=== PATIENT | female | born 1970 | race African-American/Black ===

== ENCOUNTER 2021-05-03 10:24 | Emergency (ER) | payer OTHER, SELFPAY ==
--- OUTSIDE RECORDS SUMMARY | 2021-05-03 10:29 | XMS REPORT | Continuity of Care Document ---
:1970 Author Organization [facility] t Address [address] [place] [address] Care Team Providers Name Role Phone Gonzalo ELLIS, Erik Primary Care Physician Sandro PASCAL Attending Clinician Unavailable SIOMARA Attending Clinician Unavailable SUBHA Attending Clinician Unavailable Jarocho iNchole DO Attending Clinician Erik ESTRELLA Attending Clinician Unavailable LOVELACE Attending Clinician Unavailable Sandro Pascal MD Attending Clinician 2, Lab Attending Clinician Unavailable Brock ELLIS Attending Clinician BROCK Attending Clinician Unavailable Doctor Unassigned, Name Attending Clinician Unavailable Lab, Fam Pob I Attending Clinician Unavailable Anene DIRECTOR COMPLIANCE Attending Clinician ANENE Attending Clinician Unavailable Payers Payer Name Policy Type Policy Number Effective Date Expiration Date [employer]ard 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 00:00: [place] with with Medical neuropathy neuropathy Br anch Type 2 Type 2 Disease Active Univers diabetes diabetes 3-20 ity of mellitus mellitus 00:00: [place] with with 00 Medical diabetic diabetic Branch polyneurop polyneurop athy athy Abscess of Abscess of Disease Active U nivers thumb, thumb, 3-20 ity of right right 00:00: [place] [facility] Thumb Thumb Disease Active Univers pain, pain, 3-20 ity of right right 00:00: [place] [facility] Candidiasi Candidiasi Disease Active U nivers s of vulva s of vulva 3-20 it y of and vagina and vagina 00:00: [place] [facility] Candidiasi Candidiasi Disease Active U nivers s s 3-20 ity of 00:00: [place] [facility] Yeast Yeast Disease Active Univers vaginitis vaginitis 3-20 ity of 00:00: [place] [facility] Esophageal Esophageal Disease Active U nivers reflux reflux 6-18 ity of 00:00: [place] [facility] Benign Benign Disease Active Univers hypertensi hypertensi 6-18 it y of ve heart ve heart 00:00: [place] disease disease 00 Medical without without Branch heart heart failure failure HLD HLD Disease Active Univers (hyperlipi (hyperlipi 6-18 it y of demia) demia) 00:00: [place] [facility] DM type 2 DM type 2 Disease Active Uni vers (diabetes (diabetes 6-18 ity of mellitus, mellitus, 00[place] type 2) type 2) 00 [facility] Peripheral Peripheral Disease Active U nivers neuropathy neuropathy 6-18 it y of 00:00: [place] 00 [facility] Branch Allergies, Adverse Reactions, Alerts Allergy Allergy Status Severity Reaction(s) Onset Inactive Treating Comm ents Source Name Type Date Date Clinician CODEINE DRUG Active Unknown-Cmnt Uni vers INGREDI 07-09 ity of 00:00: [place] 00 Medical Branch Codeine Propensi Active Unknown - dizziness U nivers ty to See comments 07-09 , pt IS ity of adverse 00:00: NOT [place] reaction 00 ALLERGIC Medica l s TO Branch TRAMADOL Social History Social Habit Start Date Stop Date Quantity Comments Source Exposure to Not sure [facility] SARS-CoV-2 [place] [facility] (event) Branch Tobacco use and 2017-01-12 2017-01-12 Never used Universit y of exposure 00:00:00 00:00:[address] [facility] Alcohol intake 2017-01-12 2017-01-12 Current University of 00:00:00 00:00:00 non-drinker of [facility] alcohol Branch (finding) Sex Ass[birth year] At [birth year] Universit y of 00:00:00 00:00:[address] [facility] Smoking Status Start Date Stop Date Source Never smoker [facility] Branch Medications Ordered Filled Start Stop Current Ordering Indication Dosage Frequency Signature Comments Components Source Medication Medication Date Date Medication? Clinician (SIG) Name Name fluconazole Yes Take one Un pricila 150 mg 1-14 tablet by ity of tablet 00:00: mouth 72 [place] 00 hours Medical after Branch first dose as instructed by provider fluconazole Yes Take one Un pricila 150 mg 1-14 tablet by ity of tablet 00:00: mouth 72 [place] 00 hours Medical after Branch first dose as instructed by provider metroNIDAZO Yes [id number] 500mg Take 1 Univers LE 500 mg 1-14 tablet by ity o f tablet 00:00: mouth [place] 00 every 12 Medical (twelve) Branch hours. fluconazole Yes Take one Un pricila 150 mg 1-14 tablet by ity of tablet 00:00: mouth 72 [place] 00 hours Medical after Branch first dose as instructed by provider metroNIDAZO Yes [id number] 500mg Take 1 Univers LE 500 mg 1-14 tablet by ity o f tablet 00:00: mouth [place] 00 every 12 Medical (twelve) Branch hours. fluconazole Yes Take one Un pricila 150 mg 1-14 tablet by ity of tablet 00:00: mouth 72 [place] 00 hours Medical after Branch first dose as instructed by provider metroNIDAZO Yes [id number] 500mg Take 1 Univers LE 500 mg 1-14 tablet by ity o f tablet 00:00: mouth [place] 00 every 12 Medical (twelve) Branch hours. nystatin-tr 202- No [id number] Apply to [facility] 03-17 area(s) 2 it y of cream 00:00: 05:59 (two) [place] 00 :00 times Medical daily for Branch 14 days. nystatin-tr 2020- No [id number] Apply to [facility] 03-17 area(s) 2 it y of cream 00:00: 05:59 (two) [place] 00 :00 times Medical daily for Branch 14 days. nystatin-tr 2020- No [id number] Apply to [facility] 03-17 area(s) 2 it y of cream 00:00: 05:59 (two) [place] 00 :00 times Medical daily for Branch 14 days. nystatin-tr 2020- No [id number] Apply to [facility] 03-17 area(s) 2 it y of cream 00:00: 05:59 (two) [place] 00 :00 times Medical daily for Branch 14 days. nystatin-tr 2020- No [id number] Apply to [facility] 03-17 area(s) 2 it y of cream 00:00: 05:59 (two) [place] 00 :00 times Medical daily for Branch 14 days. nystatin-tr 2020- No [id number] Apply to [facility] 03-17 area(s) 2 it y of cream 00:00: 05:59 (two) [place] 00 :00 times Medical daily for Branch 14 days. nystatin-tr 2020- No [id number] Apply to [facility] 03-17 area(s) 2 it y of cream 00:00: 05:59 (two) [place] 00 :00 times Medical daily for Branch 14 days. nystatin-tr 2020- No [id number] Apply to [facility] 03-17 area(s) 2 it y of cream 00:00: 05:59 (two) [place] 00 :00 times Medical daily for Branch 14 days. fluconazole 2020-2020- No [id number] 150mg Take 1 Univers 150 mg 03-17 tablet by ity of tablet 00:00: 05:59 mouth [place] 00 :[place] now for 1 Medical dose. Take Branch one tablet now and the second tablet in 72 hours fluconazole 2020- No [id number] 150mg Take 1 Univers 150 mg 03-17 tablet by ity of tablet 00:00: 05:59 mouth [place] 00 :[place] now for 1 Medical dose. Take Branch one tablet now and the second tablet in 72 hours fluconazole 2020- No [id number] 150mg Take 1 [facility] 150 mg 03-17 tablet by ity of tablet 00:00: 05:59 mouth [place] 00 :[place] now for 1 Medical dose. Take Branch one tablet now and the second tablet in 72 hours fluconazole 2020- No [id number] 150mg Take 1 [facility] 150 mg 03-17 tablet by ity of tablet 00:00: 05:59 mouth [place] 00 :[place] now for 1 Medical dose. Take Branch one tablet now and the second tablet in 72 hours sitaGLIPtin 2016-03 Yes [id number] 100mg Take 1 Univers (JANUVIA) 0-23 tablet by ity o f 100 mg 00:00: mouth [place] tablet 00 daily. Medical Branch metformin 2016-03 Yes [id number] 750mg Take 1 Univers ER 750 mg 0-23 tablet by ity o f 24 hr 00:00: mouth 2 [place] tablet 00 (two) Medical times Branch daily with meals. insulin 2016-03 Yes [id number] 35U inject Uni vers glargine 0-23 35-45 ity of (TOUJEO 00:00: Units [place] SOLOSTAR) 00 under the Medic al 300 unit/mL skin every Br anch (1.5 mL) morning. InPn sitaGLIPtin 2016-03 Yes [id number] 100mg Take 1 Univers (JANUVIA) 0-23 tablet by ity o f 100 mg 00:00: mouth [place] tablet 00 daily. Medical Branch metformin 2016-03 Yes [id number] 750mg Take 1 Univers ER 750 mg 0-23 tablet by ity o f 24 hr 00:00: mouth 2 [place] tablet 00 (two) Medical times Branch daily with meals. insulin 2016-03 Yes [id number] 35U inject Uni vers glargine 0-23 35-45 ity of (TOUJEO 00:00: Units [place] SOLOSTAR) 00 under the Medic al 300 unit/mL skin every Br anch (1.5 mL) morning. InPn sitaGLIPtin 2016-03 Yes [id number] 100mg Take 1 Univers (JANUVIA) 0-23 tablet by ity o f 100 mg 00:00: mouth [place] tablet 00 daily. Medical Branch metformin 2016-03 Yes [id number] 750mg Take 1 Univers ER 750 mg 0-23 tablet by ity o f 24 hr 00:00: mouth 2 [place] tablet 00 (two) Medical times Branch daily with meals. insulin 2016-03 Yes [id number] 35U inject Uni vers glargine 0-23 35-45 ity of (TOUJEO 00:00: Units [place] SOLOSTAR) 00 under the Medic al 300 unit/mL skin every Br anch (1.5 mL) morning. InPn sitaGLIPtin 2016-03 Yes [id number] 100mg Take 1 Univers (JANUVIA) 0-23 tablet by ity o f 100 mg 00:00: mouth [place] tablet 00 daily. Medical Branch metformin 2016-03 Yes [id number] 750mg Take 1 Univers ER 750 mg 0-23 tablet by ity o f 24 hr 00:00: mouth 2 [place] tablet 00 (two) Medical times Branch daily with meals. insulin 2016-03 Yes [id number] 35U inject Uni vers glargine 0-23 35-45 ity of (TOUJEO 00:00: Units [place] SOLOSTAR) 00 under the Medic al 300 unit/mL skin every Br anch (1.5 mL) morning. InPn sitaGLIPtin 2016-03 Yes [id number] 100mg Take 1 Univers (JANUVIA) 0-23 tablet by ity o f 100 mg 00:00: mouth [place] tablet 00 daily. Medical Branch metformin 2016-03 Yes [id number] 750mg Take 1 Univers ER 750 mg 0-23 tablet by ity o f 24 hr 00:00: mouth 2 [place] tablet 00 (two) Medical times Branch daily with meals. insulin 2016-03 Yes [id number] 35U inject Uni vers glargine 0-23 35-45 ity of (TOUJEO 00:00: Units [place] SOLOSTAR) 00 under the Medic al 300 unit/mL skin every Br anch (1.5 mL) morning. InPn sitaGLIPtin 2016-03 Yes [id number] 100mg Take 1 Univers (JANUVIA) 0-23 tablet by ity o f 100 mg 00:00: mouth [place] tablet 00 daily. Medical Branch metformin 2016-03 Yes [id number] 750mg Take 1 Univers ER 750 mg 0-23 tablet by ity o f 24 hr 00:00: mouth 2 [place] tablet 00 (two) Medical times Branch daily with meals. insulin 2016-03 Yes [id number] 35U inject Uni vers glargine 0-23 35-45 ity of (TOUJEO 00:00: Units [place] SOLOSTAR) 00 under the Medic al 300 unit/mL skin every Br anch (1.5 mL) morning. InPn sitaGLIPtin 2016-03 Yes [id number] 100mg Take 1 Univers (JANUVIA) 0-23 tablet by ity o f 100 mg 00:00: mouth [place] tablet 00 daily. Medical Branch metformin 2016-03 Yes [id number] 750mg Take 1 Univers ER 750 mg 0-23 tablet by ity o f 24 hr 00:00: mouth 2 [place] tablet 00 (two) Medical times Branch daily with meals. insulin 2016-03 Yes [id number] 35U inject Uni vers glargine 0-23 35-45 ity of (TOUJEO 00:00: Units [place] SOLOSTAR) 00 under the Medic al 300 unit/mL skin every Br anch (1.5 mL) morning. InPn sitaGLIPtin 2016-03 Yes [id number] 100mg Take 1 Univers (JANUVIA) 0-23 tablet by ity o f 100 mg 00:00: mouth [place] tablet 00 daily. Medical Branch metformin 2016-03 Yes [id number] 750mg Take 1 Univers ER 750 mg 0-23 tablet by ity o f 24 hr 00:00: mouth 2 [place] tablet 00 (two) Medical times Branch daily with meals. insulin 2016- Yes [id number] 35U inject Uni vers glargine 0-23 35-45 ity of (TOUJEO 00:00: Units [place] SOLOSTAR) 00 under the Medic al 300 unit/mL skin every Br anch (1.5 mL) morning. InPn sitaGLIPtin 2016-03 Yes [id number] 100mg Take 1 Univers (JANUVIA) 0-23 tablet by ity o f 100 mg 00:00: mouth [place] tablet 00 daily. Medical Branch metformin 2016-03 Yes [id number] 750mg Take 1 Univers ER 750 mg 0-23 tablet by ity o f 24 hr 00:00: mouth 2 [place] tablet 00 (two) Medical times Branch daily with meals. insulin 2016-03 Yes [id number] 35U inject Uni vers glargine 0-23 35-45 ity of (TOUJEO 00:00: Units [place] SOLOSTAR) 00 under the Medic al 300 unit/mL skin every Br anch (1.5 mL) morning. InPn sitaGLIPtin 2016-03 Yes [id number] 100mg Take 1 Univers (JANUVIA) 0-23 tablet by ity o f 100 mg 00:00: mouth [place] tablet 00 daily. Medical Branch metformin 2016-03 Yes [id number] 750mg Take 1 Univers ER 750 mg 0-23 tablet by ity o f 24 hr 00:00: mouth 2 [place] tablet 00 (two) Medical times Branch daily with meals. insulin 2016-03 Yes [id number] 35U inject Uni vers glargine 0-23 35-45 ity of (TOUJEO 00:00: Units [place] SOLOSTAR) 00 under the Medic al 300 unit/mL skin every Br anch (1.5 mL) morning. InPn sitaGLIPtin 2016-03 Yes [id number] 100mg Take 1 Univers (JANUVIA) 0-23 tablet by ity o f 100 mg 00:00: mouth [place] tablet 00 daily. Medical Branch metformin 2016-03 Yes [id number] 750mg Take 1 Univers ER 750 mg 0-23 tablet by ity o f 24 hr 00:00: mouth 2 [place] tablet 00 (two) Medical times Branch daily with meals. insulin 2016-03 Yes [id number] 35U inject Uni vers glargine 0-23 35-45 ity of (TOUJEO 00:00: Units [place] SOLOSTAR) 00 under the Medic al 300 unit/mL skin every Br anch (1.5 mL) morning. InPn sitaGLIPtin 2016-03 Yes [id number] 100mg Take 1 Univers (JANUVIA) 0-23 tablet by ity o f 100 mg 00:00: mouth [place] tablet 00 daily. Medical Branch metformin 2016-03 Yes [id number] 750mg Take 1 Univers ER 750 mg 0-23 tablet by ity o f 24 hr 00:00: mouth 2 [place] tablet 00 (two) Medical times Branch daily with meals. insulin 2016-03 Yes [id number] 35U inject Uni vers glargine 0-23 35-45 ity of (TOUJEO 00:00: Units [place] SOLOSTAR) 00 under the Medic al 300 unit/mL skin every Br anch (1.5 mL) morning. InPn sitaGLIPtin 2016-03 Yes [id number] 100mg Take 1 Univers (JANUVIA) 0-23 tablet by ity o f 100 mg 00:00: mouth [place] tablet 00 daily. Medical Branch metformin 2016-03 Yes [id number] 750mg Take 1 Univers ER 750 mg 0-23 tablet by ity o f 24 hr 00:00: mouth 2 [place] tablet 00 (two) Medical times Branch daily with meals. insulin 2016-03 Yes [id number] 35U inject Uni vers glargine 0-23 35-45 ity of (TOUJEO 00:00: Units [place] SOLOSTAR) 00 under the Medic al 300 unit/mL skin every Br anch (1.5 mL) morning. InPn atorvastati 2016-03 Yes [id number] 40mg Take 1 Univers n 40 mg 0-11 tablet by ity of tablet 00:00: mouth at [place] 00 bedtime. Medical Branch blood sugar 2016-03 Yes [id number] Use TID, Univers diagnostic 0-11 DX E11.9 ity o f strip 00:00: ([facility] upon [facility] Branch approval) requesting True Track Strips atorvastati 2016-03 Yes [id number] 40mg Take 1 Univers n 40 mg 0-11 tablet by ity of tablet 00:00: mouth at [place] 00 bedtime. Medical Branch blood sugar 2016-03 Yes [id number] Use TID, Univers diagnostic 0-11 DX E11.9 ity o f strip 00:00: ([facility] upon [facility] approval) requesting True Track Strips atorvastati 2016-03 Yes [id number] 40mg Take 1 Univers n 40 mg 0-11 tablet by ity of tablet 00:00: mouth at [place] 00 bedtime. [facility] blood sugar 2016-03 Yes [id number] Use TID, Univers diagnostic 0-11 DX E11.9 ity o f strip 00:00: ([facility] upon [facility] Branch approval) requesting True Track Strips atorvastati 2016-03 Yes [id number] 40mg Take 1 Univers n 40 mg 0-11 tablet by ity of tablet 00:00: mouth at [place] 00 bedtime. [facility] blood sugar 2016-03 Yes [id number] Use TID, Univers diagnostic 0-11 DX E11.9 ity o f strip 00:00: ([facility] approval) requesting True Track Strips atorvastati 2016-03 Yes [id number] 40mg Take 1 Univers n 40 mg 0-11 tablet by ity of tablet 00:00: mouth at [place] 00 bedtime. [facility] blood sugar 2016-03 Yes [id number] Use TID, Univers diagnostic 0-11 DX E11.9 ity o f strip 00:00: ([facility] approval) requesting True Track Strips atorvastati 2016-03 Yes [id number] 40mg Take 1 Univers n 40 mg 0-11 tablet by ity of tablet 00:00: mouth at [place] 00 bedtime. [facility] blood sugar 2016-03 Yes [id number] Use TID, Univers diagnostic 0-11 DX E11.9 ity o f strip 00:00: ([facility] approval) requesting True Track Strips atorvastati 2016-03 Yes [id number] 40mg Take 1 Univers n 40 mg 0-11 tablet by ity of tablet 00:00: mouth at [place] 00 bedtime. [facility] blood sugar 2016-03 Yes [id number] Use TID, Univers diagnostic 0-11 DX E11.9 ity o f strip 00:00: ([facility] approval) requesting True Track Strips atorvastati 2016-03 Yes [id number] 40mg Take 1 Univers n 40 mg 0-11 tablet by ity of tablet 00:00: mouth at [place] 00 bedtime. [facility] blood sugar 2016-03 Yes [id number] Use TID, Univers diagnostic 0-11 DX E11.9 ity o f strip 00:00: ([facility] approval) requesting True Track Strips atorvastati 2016-03 Yes [id number] 40mg Take 1 Univers n 40 mg 0-11 tablet by ity of tablet 00:00: mouth at [place] 00 bedtime. [facility] blood sugar 2016-03 Yes [id number] Use TID, Univers diagnostic 0-11 DX E11.9 ity o f strip 00:00: ([facility] approval) requesting True Track Strips atorvastati 2016- Yes [id number] 40mg Take 1 Univers n 40 mg 0-11 tablet by ity of tablet 00:00: mouth at [place] 00 bedtime. [facility] blood sugar 2016-03 Yes [id number] Use TID, Univers diagnostic 0-11 DX E11.9 ity o f strip 00:00: ([facility] approval) requesting True Track Strips atorvastati 2016-03 Yes [id number] 40mg Take 1 Univers n 40 mg 0-11 tablet by ity of tablet 00:00: mouth at [place] 00 bedtime. [facility] blood sugar 2016-03 Yes [id number] Use TID, Univers diagnostic 0-11 DX E11.9 ity o f strip 00:00: ([facility] approval) requesting True Track Strips atorvastati 2016-03 Yes [id number] 40mg Take 1 Univers n 40 mg 0-11 tablet by ity of tablet 00:00: mouth at [place] 00 bedtime. [facility] blood sugar 2016-03 Yes [id number] Use TID, Univers diagnostic 0-11 DX E11.9 ity o f strip 00:00: ([facility] approval) requesting True Track Strips atorvastati 2016-03 Yes [id number] 40mg Take 1 Univers n 40 mg 0-11 tablet by ity of tablet 00:00: mouth at [place] 00 bedtime. [facility] blood sugar 2016-03 Yes [id number] Use TID, Univers diagnostic 0-11 DX E11.9 ity o f strip 00:00: ([facility] approval) requesting True Track Strips insulin Yes [id number] Use with Un pricila syringe-nee 5-04 insulin 3 ity of dle U-100 1 00:00: times [place] ml (INSULIN 00 daily Medical SYRINGE) 1 Branch mL 29 x 1/2" Syrg insulin Yes [id number] Use with Un pricila syringe-nee 5-04 insulin 3 ity of dle U-100 1 00:00: times [place] ml (INSULIN 00 daily Medical SYRINGE) 1 Branch mL 29 x 1/2" Syrg insulin Yes [id number] Use with Un pricila syringe-nee 5-04 insulin 3 ity of dle U-100 1 00:00: times [place] ml (INSULIN 00 daily Medical SYRINGE) 1 Branch mL 29 x 1/2" Syrg insulin 2015- Yes [id number] Use with Un pricila syringe-nee 5-04 insulin 3 ity of dle U-100 1 00:00: times [place] ml (INSULIN 00 daily Medical SYRINGE) 1 Branch mL 29 x 1/2" Syrg insulin Yes [id number] Use with Un pricila syringe-nee 5-04 insulin 3 ity of dle U-100 1 00:00: times [place] ml (INSULIN 00 daily Medical SYRINGE) 1 Branch mL 29 x 1/2" Syrg insulin Yes [id number] Use with Un pricila syringe-nee 5-04 insulin 3 ity of dle U-100 1 00:00: times [place] ml (INSULIN 00 daily Medical SYRINGE) 1 Branch mL 29 x 1/2" Syrg insulin Yes [id number] Use with Un pricila syringe-nee 5-04 insulin 3 ity of dle U-100 1 00:00: times [place] ml (INSULIN 00 daily Medical SYRINGE) 1 Branch mL 29 x 1/2" Syrg insulin Yes [id number] Use with Un pricila syringe-nee 5-04 insulin 3 ity of dle U-100 1 00:00: times [place] ml (INSULIN 00 daily Medical SYRINGE) 1 Branch mL 29 x 1/2" Syrg insulin Yes [id number] Use with Un pricila syringe-nee 5-04 insulin 3 ity of dle U-100 1 00:00: times [place] ml (INSULIN 00 daily Medical SYRINGE) 1 Branch mL 29 x 1/2" Syrg insulin Yes [id number] Use with Un pricila syringe-nee 5-04 insulin 3 ity of dle U-100 1 00:00: times [place] ml (INSULIN 00 daily Medical SYRINGE) 1 Branch mL 29 x 1/2" Syrg insulin Yes [id number] Use with Un pricila syringe-nee 5-04 insulin 3 ity of dle U-100 1 00:00: times [place] ml (INSULIN 00 daily Medical SYRINGE) 1 Branch mL 29 x 1/2" Syrg insulin Yes [id number] Use with Un pricila syringe-nee 5-04 insulin 3 ity of dle U-100 1 00:00: times [place] ml (INSULIN 00 daily Medical SYRINGE) 1 Branch mL 29 x 1/2" Syrg insulin 2016-0 Yes [id number] Use with Un pricila syringe-nee 5-04 insulin 3 ity of dle U-100 1 00:00: times [place] ml (INSULIN 00 daily Medical SYRINGE) 1 Branch mL 29 x 1/2" Syrg Insulin 2016-0 Yes Use as [facility] [place], 3-25 directed ity of Disposable, 00:00: [place] (SURE-FINE 00 Medical PEN Branch NEEDLES) 31 gauge x 3/16" Ndle Insulin 2016-0 Yes Use as Univers [place], 3-25 directed ity of Disposable, 00:00: [place] (SURE-FINE 00 Medical PEN Branch NEEDLES) 31 gauge x 3/16" Ndle Insulin 2016-0 Yes Use as Univers [place], 3-25 directed ity of Disposable, 00:00: [place] (SURE-FINE 00 Medical PEN Branch NEEDLES) 31 gauge x 3/16" Ndle Insulin 2016-0 Yes Use as Univers [place], 3-25 directed ity of Disposable, 00:00: [place] (SURE-FINE 00 Medical PEN Branch NEEDLES) 31 gauge x 3/16" Ndle Insulin 2016-0 Yes Use as Univers [place], 3-25 directed ity of Disposable, 00:00: [place] (SURE-FINE 00 Medical PEN Branch NEEDLES) 31 gauge x 3/16" Ndle Insulin 2016-0 Yes Use as Univers [place], 3-25 directed ity of Disposable, 00:00: [place] (SURE-FINE 00 Medical PEN Branch NEEDLES) 31 gauge x 3/16" Ndle Insulin 2016-0 Yes Use as Univers [place], 3-25 directed ity of Disposable, 00:00: [place] (SURE-FINE 00 Medical PEN Branch NEEDLES) 31 gauge x 3/16" Ndle Insulin 2016-0 Yes Use as Univers [place], 3-25 directed ity of Disposable, 00:00: [place] (SURE-FINE 00 Medical PEN Branch NEEDLES) 31 gauge x 3/16" Ndle Insulin 2016-0 Yes Use as [facility] [place], 3-25 directed ity of Disposable, 00:00: [place] (SURE-FINE 00 Medical PEN Branch NEEDLES) 31 gauge x 3/16" Ndle Insulin 2016-0 Yes Use as [facility] [place], 3-25 directed ity of Disposable, 00:00: [place] (SURE-FINE 00 Medical PEN Branch NEEDLES) 31 gauge x 3/16" Ndle Insulin 2016-0 Yes Use as [facility] [place], 3-25 directed ity of Disposable, 00:00: [place] (SURE-FINE 00 Medical PEN Branch NEEDLES) 31 gauge x 3/16" Ndle Insulin 2016-0 Yes Use as [facility] [place], 3-25 directed ity of Disposable, 00:00: [place] (SURE-FINE 00 Medical PEN Branch NEEDLES) 31 gauge x 3/16" Ndle Insulin 2016-0 Yes Use as [facility] [place], 3-25 directed ity of Disposable, 00:00: [place] (SURE-FINE 00 Medical PEN Branch NEEDLES) 31 gauge x 3/16" Ndle Vital Signs Vital Name Observation Time Observation Value Comments Source Systolic blood 2020-03-17 21:27:00 137 mm[facility]Hg[facility] Diastolic blood 2020-03-17 21:27:00 94 mm[facility]Hg[facility] 2020-03-17 21:27:00 105 /min [facility] acute hospital Body temperature 2020-03-17 21:04:00 36.83 [facility] Respiratory rate 2020-03-17 21:04:00 16 /min [facility] Body height 2020-03-17 21:04:00 160 cm [facility] acute hospital Body weight 2020-03-17 21:04:00 65.772 kg [facility] acute hospital BMI 2020-03-17 21:04:00 25.69 kg/m2 [facility] acute hospital Procedures Procedure Date / Time Performing Clinician Source Performed GC & CHLAMYDIA AMPLIFIED 2020-03-17 21:16:00 AdumMarlena [facility] RISK HPV-THIN PREP 2020-03-17 21:16:00 [facility] TRICHOMONAS AMPLIFIED 2020-03-17 21:16:00 [facility] PAP SMEAR-LIQUID BASED-CP 2020-03-17 21:16:00 [facility] 2020-03-17 20:11:55 Doctor Unassigned, [facility] NO SHOW OR MISSED 2020-03-17 20:11:05 Doctor Unassigned, Crys [facility] APPOINTMENT POLICY [facility] ACKNOWLEDGEMENT Encounters Start End Encounter Admission Attending Care Care Encounter Source Date/Time Date/Time Type Type Clinicians Facility Department ID 2021-03-18 2021-03-18 Outpatient ADUM, [facility] [id number] [facility] 15:30:00 15:30:00 MARLENA [id number] [facility] 2020-08-13 2020-08-13 Outpatient SEPTIMUS, [facility] [id number] [place] 00:00:00 00:00:00 HENRI 025 Method i 2020-07-23 2020-07-23 Outpatient [facility] [id number] [place] 00:00:00 00:00:00 309 Method i 2020-07-23 2020-07-23 Outpatient SUBHA, [facility] [id number] [place] 00:00:00 00:00:00 JUDY 529 Method i 2020-07-23 2020-07-23 Outpatient SUBHA, [facility] [id number] [place] 00:00:00 00:00:00 JUDY 606 Method i 2020-07-23 2020-07-23 Outpatient SUBHA, [facility] [id number] [place] 00:00:00 00:00:00 JUDY 695 Method i 2020-07-23 2020-07-23 Outpatient SUBHA, [facility] [id number] [place] 00:00:00 00:00:00 JUDY 769 Method i 2020-07-23 2020-07-23 Outpatient SUBHA, [facility] [id number] [place] 00:00:00 00:00:00 JUDY 841 Method i 2020-07-23 2020-07-23 Outpatient SUBHA, [facility] [id number] [place] 00:00:00 00:00:00 JUDY 914 Method i 2020-05-21 2020-05-21 [facility] [id number] Univers 00:00:00 00:00:00 Outreach Maximo PRIMARY [id number] i ty of [facility] [id number] [phone] Wi dical [address] 2020-04-17 2020-04-17 Outpatient SAMEER, [facility] [id number] Univers 10:00:00 10:00:00 WONDIFUL [id number] ity o f [facility] 2020-04-15 2020-04-15 Outpatient R LOVELACE, [facility] [id number] Univers 10:30:00 10:30:00 WENTONG [id number] ity [facility] 2020-04-15 2020-04-15 Outpatient R LOVELACE, [facility] [id number] Univers 10:30:00 10:30:00 WENTONG ity [facility] 2020-04-03 2020-04-03 Outpatient ADUM, [facility] [id number] Univers 10:00:00 10:00:00 MARLENA [id number] ity [facility] 2020-04-03 2020-04-03 Outpatient R ADUM, [facility] [id number] Univers 10:00:00 10:00:00 MARLENA ity [facility] 2020-04-02 2020-04-02 Outpatient R ADUM, [facility] [id number] Univers 00:00:00 00:00:00 MARLENA [id number] ity [facility] 2020-04-02 2020-04-02 Outpatient R ADUM, [facility] [id number] Univers 00:00:00 00:00:00 MARLENA ity [facility] 2020-03-27 2020-03-27 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 [facility] [id number] Univers 10:17:57 10:32:57 Visit Michelle Santos [id number] [id number] [phone] Wi dical nal 353 [facility] 2020-03-18 2020-03-18 Outpatient [facility] [id number] Univers 10:00:00 10:00:00 [id number] [facility] 2020-03-18 2020-03-18 [facility] [id number] Univers 10:00:00 10:00:00 [facility] 2020-03-17 2020-03-17 Office Adum, [facility] [id number] Univers 14:10:59 16:09:53 Visit Marlena Holder [id number] [id number] [phone] Wi dical nal 134 [facility] 2020-03-17 2020-03-17 Outpatient R AD, [facility] [id number] Univers 14:30:00 14:30:00 MARLENA [id number] [facility] 2020-03-17 2020-03-17 Outpatient R ADUM, [facility] [id number] Univers 14:30:00 14:30:00 [facility] 2020-03-17 2020-03-17 Telephone Adum, [facility] [id number] Univers 00:00:00 00:00:00 Marlena Holder [id number] [id number] [phone] Wi dical nal 134 [facility] 2020-03-17 2020-03-17 Orders Doctor GUERRA [id number] Univers 00:00:00 00:00:00 Only Unassigned, SHARLA [id number] [facility] [id number] [place] as [phone] [address] 2020-01-17 2020-01-17 Outpatient R ADUM, [facility] [id number] Univers 14:00:00 14:00:00 MARLENA [id number] ity of [facility] 2020-01-17 2020-01-17 Outpatient R ADUM, [facility] [id number] Univers 14:00:00 14:00:00 MARLENA ity [facility] 2020-01-14 2020-01-14 Outpatient R ADUM, [facility] [id number] Univers 09:00:00 09:00:00 MARLENA ity of [facility] 2019-12-19 2019-12-19 Outpatient R ADUM, [facility] [id number] Univers 15:30:00 15:30:00 MARLENA [id number] ity [facility] 2019-12-19 2019-12-19 Outpatient R ADUM, [facility] [id number] Univers 15:30:00 15:30:00 MARLENA ity [facility] 2019-12-18 2019-12-18 Outpatient R ADUM, [facility] [id number] Univers 15:30:00 15:30:00 MARLENA [id number] ity [facility] 2019-12-18 2019-12-18 Outpatient R ADUM, [facility] [id number] Univers 15:30:00 15:30:00 MARLENA ity [facility] 2019-12-18 2019-12-18 Outpatient R ADUM, [facility] [id number] Univers 15:30:00 15:30:00 [facility] 2019-09-25 2019-09-25 Laboratory Lab, Adc Fam Pob I [facility] [id number] Univers 17:20:00 17:40:00 Only Anene, [facility] [id number] ity of [place] [id number] [place] Lamonte [phone] [address] Office [address] One 2019-09-25 2019-09-25 Outpatient R [facility] [id number] Univers 17:20:00 17:20:00 [id number] whitney [facility] 2019-09-25 2019-09-25 Outpatient R MARICRUZ, [facility] [id number] Univers 17:20:00 17:20:00 GRACIELA olson [facility] Results Test Description Test Time Test Comments Results Result Comments Source HIGH RISK HPV-THIN PREP 2020-03-19 04:39:00 Test Item Value Reference Range Interpretation Comme nts High Risk HPV (test code = Negative Negative 8902817971) ELI (test code = ELI) A positive result indicates the presence of viral messenger RNA (mRNA) from 14 high-risk types of human papillomavirus (HPV Genotype 16, 18, 31, 33, 35, 39, 45, 51, 52, 56, 58, 59, 66, 68). ?False-positive results may occur with this test when mRNA of low-risk HPV genotypes 26, 67, 70, and 82 is present. A negative result of this assay does not exclude the possibility of cytologic abnormalities or of future or underlying CIN2-3, or cancer. ?Sensitivity of this test may be affected by specimen collection methods, stage of infection, and the presence of interfering substances. ?Results should be interpreted in conjunction with other available laboratory and clinical data. Lab Interpretation (test code = Normal 68212-6) [facility] [id number] 04:39:00 Test Item Value Reference Range Interpretation Comments High Risk HPV (test Negative Negative code = 3982202812) ELI (test code = ELI) A positive result indicates the presence of viral messenger RNA (mRNA) from 14 high-risk types of human papillomavirus (HPV Genotype 16, 18, 31, 33, 35, 39, 45, 51, 52, 56, 58, 59, 66, 68). ?False-positive results may occur with this test when mRNA of low-risk HPV genotypes 26, 67, 70, and 82 is present. A negative result of this assay does not exclude the possibility of cytologic abnormalities or of future or underlying CIN2-3, or cancer. ?Sensitivity of this test may be affected by specimen collection methods, stage of infection, and the presence of interfering substances. ?Results should be interpreted in conjunction with other available laboratory and clinical data. Lab Interpretation Normal (test code = 77411-7) [facility] CHLAMYDIA AMPLIFIED [id number] 18:39:00 Test Item Value Reference Range Interpretation Comments C. trachomatis Nucleic Negative Negative Acid (test code = 68869-3) N. gonorrhoeae Nucleic Negative Negative Acid (test code = 35811-9) ELI (test code = ELI) Reliable results are dependent on adequate specimen collection. ? A positive result obtained from a patient after therapeutic treatment cannot be interpreted as indicating the presence of viable organisms. ?For patients on whom a false positive result may have adverse psychosocial impact, retesting is advised. Indeterminate: Unable to generate a valid test result on this specimen. ?Please submit a new specimen for repeat testing if clinically indicated. Chlamydia trachomatis/Neisseria gonorrhoeae nucleic acid amplification testing (NAAT) has not been validated for medico-legal specimens (sexual abuse in briana-pubertal and pre-pubertal children, sexual assault, and legal cases). ?Culture for Chlamydia trachomatis and/or Neisseria gonorrhoeae from clinically appropriate sites is the method of choice in these cases. ? Results from this testing should be interpreted in conjunction with other laboratory and clinical data available to the clinician. Lab Interpretation Normal (test code = 09910-5) [facility] CHLAMYDIA AMPLIFIED [id number] 18:39:00 Test Item Value Reference Range Interpretation Comments C. trachomatis Nucleic Negative Negative Acid (test code = 27877-5) N. gonorrhoeae Nucleic Negative Negative Acid (test code = 46404-0) ELI (test code = ELI) Reliable results are dependent on adequate specimen collection. ? A positive result obtained from a patient after therapeutic treatment cannot be interpreted as indicating the presence of viable organisms. ?For patients on whom a false positive result may have adverse psychosocial impact, retesting is advised. Indeterminate: Unable to generate a valid test result on this specimen. ?Please submit a new specimen for repeat testing if clinically indicated. Chlamydia trachomatis/Neisseria gonorrhoeae nucleic acid amplification testing (NAAT) has not been validated for medico-legal specimens (sexual abuse in briana-pubertal and pre-pubertal children, sexual assault, and legal cases). ?Culture for Chlamydia trachomatis and/or Neisseria gonorrhoeae from clinically appropriate sites is the method of choice in these cases. ? Results from this testing should be interpreted in conjunction with other laboratory and clinical data available to the clinician. Lab Interpretation Normal (test code = 59020-2) [facility] [id number] 18:29:00 Test Item Value Reference Range Interpretation Comments Trichomonas Nucleic Negative Negative Acid (test code = 77110-9) ELI (test code = ELI) Reliable results are dependent on adequate specimen collection. ? A positive result obtained from a patient after therapeutic treatment cannot be interpreted as indicating the presence of viable organisms. ?For patients on whom a false positive result may have adverse psychosocial impact, retesting is advised. Indeterminate: Unable to generate a valid test result on this specimen. ?Please submit a new specimen for repeat testing if clinically indicated. Trichomonas nucleic acid amplification testing (NAAT) has not been validated for medico-legal specimens (sexual abuse in [place]-pubertal and pre-pubertal children, sexual assault, and legal cases). ?Wet mount with microscopic observation and culture for Trichomonas vaginalis from clinically appropriate sites are the methods of choice in these cases. Results from this testing should be interpreted in conjunction with other laboratory and clinical data available to the clinician. Lab Interpretation Normal (test code = 79733-3) [facility] [id number] 18:29:00 Test Item Value Reference Range Interpretation Comments Trichomonas Nucleic Negative Negative Acid (test code = 93218-6) ELI (test code = ELI) Reliable results are dependent on adequate specimen collection. ? A positive result obtained from a patient after therapeutic treatment cannot be interpreted as indicating the presence of viable organisms. ?For patients on whom a false positive result may have adverse psychosocial impact, retesting is advised. Indeterminate: Unable to generate a valid test result on this specimen. ?Please submit a new specimen for repeat testing if clinically indicated. Trichomonas nucleic acid amplification testing (NAAT) has not been validated for medico-legal specimens (sexual abuse in [place]-pubertal and pre-pubertal children, sexual assault, and legal cases). ?Wet mount with microscopic observation and culture for Trichomonas vaginalis from clinically appropriate sites are the methods of choice in these cases. Results from this testing should be interpreted in conjunction with other laboratory and clinical data available to the clinician. Lab Interpretation Normal (test code = 06461-7) [facility]
[2021-05-03] MEDS ORDERED: TETRACAINE HCL 0.5% 4ML OPTH ONE (11:11)
[2021-05-03] MEDS ORDERED: FLUORESCEIN SODIUM 1 MG/WRAP ONE (11:12)
--- NOTE | 2021-05-03 12:30 | ER ---
Nurse's Notes [facility] Name: Starla Rojas Age: 50 yrs Sex: Female : 1970 Arrival Date: 05/03/2021 Time: 10:26 Bed 18 Private MD: Diagnosis: Unspecified acute conjunctivitis, right eye Presentation: 05/03 10:27 Chief complaint: Patient states: rt eye tenderness, with increased pain with light. Hx jh6 of HTN. Reports that she woke up with pain. clear drainage. Coronavirus screen: Vaccine status: Patient reports receiving the 2nd dose of the covid vaccine. Client denies travel out of the [place] in the last 14 days. Ebola Screen: Patient denies exposure to infectious person. Patient denies travel to an Ebola-affected area in the 21 days before illness onset. Initial Sepsis Screen: Does the patient meet any 2 criteria? No. Patient's initial sepsis screen is negative. Risk Assessment: Do you want to hurt yourself or someone else? Patient reports no desire to harm self or others. Onset of symptoms was May 01, 2021. 10:27 Method Of Arrival: Ambulatory [facility] 10:27 Acuity: BRUNO 3 jh6 11:39 Initial Sepsis Screen: Does the patient have a suspected source of infection? No. tw2 Patient's initial sepsis screen is negative. Triage Assessment: 10:34 General: Appears uncomfortable, Behavior is calm, cooperative. Pain: Complains of pain jh6 in right eye Pain currently is 8 out of 10 on a pain scale. Quality of pain is described as throbbing, Pain began 2-3 days ago. Is continuous, Aggravated by light. 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 - Social history:: Smoking status: Patient denies any tobacco usage or history of. Screenin:36 Abuse screen: Denies threats or abuse. Nutritional screening: No deficits noted. tw2 Tuberculosis screening: No symptoms or risk factors identified. Fall Risk None identified. Assessment: 11:35 Reassessment: provider at bedside at this time performing eye examination with Perez 2 Lamp. 12:37 Reassessment: Patient appears in no apparent distress at this time. No changes from tw2 previously documented assessment. Patient is alert, oriented x 3, equal unlabored respirations, skin warm/dry/pink. Vital Signs: 10:27 BP 151 / 97; Pulse 99; Resp 18; Temp 97.6; Pulse Ox 100% ; Weight 68.49 kg; Height 5 [facility] ft. 3 in. (160.02 cm); Pain 8/10; 10:27 Body Mass Index 26.75 (68.49 kg, 160.02 cm) [facility] ED Course: 10:26 Patient arrived in ED. am2 10:34 Triage completed. [facility] 10:35 Arm band placed on left wrist. [facility] 10:36 Bertha Jason, RN is Primary Nurse. tw2 10:36 Bed in low position. Call light in reach. Pulse ox on. NIBP on. 2 10:54 Jersey Toro PA is PHCP. [facility] 10:54 Domo Shepherd MD is Attending Physician. [facility] 12:30 Chidi Diaz MD is Referral Physician. [facility] 12:37 No provider procedures requiring assistance completed. Assist provider with eye exam of tw2 right eye. Patient did not have IV access during this emergency room visit. Administered Medications: 11:35 Drug: Tetracaine Drops 0.5 % 1 drops Route: Ophthalmic; Site: right eye; 2 Outcome: 12:30 Discharge ordered by MD. [facility] 12:37 Discharged to home ambulatory. tw2 12:37 Condition: stable 12:37 Discharge instructions given to patient, Instructed on discharge instructions, follow up and referral plans. medication usage, Demonstrated understanding of instructions, follow-up care, medications, Prescriptions given X 1. 12:38 Patient left the ED. 2 Signatures: Jersey Toro PA PA [facility] Bertha Jason RN RN 2 Betty Avilez 2 Patria Grullon RN RN [facility] Corrections: (The following items were deleted from the chart) 10:34 10:34 Allergies: No Known Allergies; [place] [id number]
--- NOTE | 2021-05-03 12:30 | EDPHYS ---
Physician Documentation [facility] Name: Starla Rojas Age: 50 yrs Sex: Female : 1970 Arrival Date: 05/03/2021 Time: 10:26 Bed 18 Private MD: AKILA Physician Domo Shepherd HPI: 05/03 10:59 This 50 yrs old Black Female presents to ER via Ambulatory with complaints of Eye jmm Problem - pressure/cant open right eye. 10:59 Onset: The symptoms/episode began/occurred gradually, 2 day(s) ago. Duration: the jmm symptoms are continuous. Aggravated by opening eye, Alleviated by. Associated signs and symptoms: Pertinent negatives:. Associated signs and symptoms: Pertinent negatives: fever. This is a 50-year-old female with complaints of right eye pain beginning 2 days ago. States having some mild drainage from the eye worsened by opening the eye. Denies fever, denies known injury to the eye.. 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 - Home Meds: 10:34 None [Active]; [facility] - PMHx: 10:34 Hypertensive disorder; Diabetes mellitus; [facility] - Immunization history:: Adult Immunizations up to date, Client reports receiving the 2nd dose of the Covid vaccine. - Social history:: Smoking status: Patient denies any tobacco usage or history of. ROS: 10:59 Constitutional: Negative for fever, chills, and weight loss. jmm 10:59 Eyes: Positive for pain. 10:59 All other systems are negative. Exam: 10:59 Constitutional: This is a well developed, well nourished patient who is awake, alert, jmm and in no acute distress. Head/Face: atraumatic. 10:59 ENT: Moist Mucus Membranes Neck: Trachea midline, Supple Chest/axilla: Normal chest wall appearance and motion. Cardiovascular: Regular rate and rhythm. No edema appreciated Respiratory: Normal respirations, no respiratory distress appreciated Abdomen/GI: Non distended, soft Back: Normal ROM Skin: General appearance color normal MS/ Extremity: Moves all extremities, no obvious deformities appreciated, no edema noted to the lower extremities Neuro: Awake and alert Psych: Behavior is normal, Mood is normal, Patient is cooperative and pleasant 10:59 Eyes: Extraocular movements: intact throughout, Conjunctiva: injected, in the right eye, Corneas: abrasion, is not appreciated, foreign body, is not appreciated, a fluorescein strip employed to appreciate the findings, Anterior chamber: normal, Intraocular pressure: right eye = 14mmHg. Vital Signs: 10:27 BP 151 / 97; Pulse 99; Resp 18; Temp 97.6; Pulse Ox 100% ; Weight 68.49 kg; Height 5 jh6 ft. 3 in. (160.02 cm); Pain 8/10; 10:27 Body Mass Index 26.75 (68.49 kg, 160.02 cm) jh6 MDM: 10:59 Patient medically screened. [facility] 12:28 Data reviewed: vital signs, nurses notes. Counseling: I had a detailed discussion with [facility] the patient and/or guardian regarding: the historical points, exam findings, and any diagnostic results supporting the discharge/admit diagnosis, the need for outpatient follow up, to return to the emergency department if symptoms worsen or persist or if there are any questions or concerns that arise at home. ED course: Patient states that she feels much better. Intraocular pressure was 14. Do not currently suspect glaucoma. Patient prescribed topical ophthalmic antibiotics and advised follow-up with ophthalmology. Patient otherwise given strict return precautions. Patient understood agrees plan of care. Administered Medications: 11:35 Drug: Tetracaine Drops 0.5 % 1 drops Route: Ophthalmic; Site: right eye; tw2 Disposition Summary: 05/03/21 12:30 Discharge Ordered Location: Home [facility] Condition: Stable [facility] Diagnosis - Unspecified acute conjunctivitis, right eye [facility]up: [facility] - With: Chidi Diaz MD - When: 1 - 2 days - Reason: Recheck today's complaints, Continuance of care, Re-evaluation by your physician Discharge Instructions: - Discharge Summary Sheet [facility] - How to Use Eye Drops and Eye Ointments [facility] Forms: - Medication Reconciliation Form [facility] - Thank You Letter [facility] - Antibiotic Education [facility] - Prescription Opioid Use [facility] - Work release form iw Prescriptions: - Erythromycin 5 mg/gram (0.5 %) Ophthalmic Ointment - apply 1 ribbon by OPHTHALMIC route every 8 hours; 1 tube; Refills: 0, Product [facility] Selection Permitted Addendum: 05/06/2021 09:17 Co-signature as Attending Physician, Domo Shepherd MD I agree with the assessment and c loyd plan of care. Signatures: Domo Shepherd MD MD cha Mickail, Joel, PA PA jmm Wise, Tara RN RN tw2 Patria Grullon RN RN jh6 Corrections: (The following items were deleted from the chart) 05/03 10:34 10:34 Allergies: No Known Allergies; [facility]
[2021-05-03 12:51] VITALS: BP 151/97; TEMP 97.6; O2SAT 100
== END 2021-05-03 12:38 | disposition home or self-care (01) ==
LOC: ER 10:24
DX: H10.31 Unspecified acute conjunctivitis, right eye (principal); E11.9 Type 2 diabetes mellitus without complications; I10 Essential (primary) hypertension; Z88.5 Allergy status to narcotic agent
CPT/HCPCS: 99284

== ENCOUNTER 2021-07-27 08:16 | Emergency (ER) | payer SELFPAY ==
--- OUTSIDE RECORDS SUMMARY | 2021-07-27 08:20 | XMS REPORT | Continuity of Care Document ---
:1970 Author Organization [facility] t Address [address] [place] [address] Care Team Providers Name Role Phone Gonzalo ELLIS, Erik Primary Care Physician Sandro PASCAL Attending Clinician Unavailable SIOMARA Attending Clinician Unavailable SUBHA Attending Clinician Unavailable Jarocho Nichole DO Attending Clinician Erik ESTRELLA Attending Clinician Unavailable LOVELACE Attending Clinician Unavailable Sandro Pascal MD Attending Clinician 2, Lab Attending Clinician Unavailable Brock ELLIS Attending Clinician BROCK Attending Clinician Unavailable Doctor Unassigned, Name Attending Clinician Unavailable Lab, Fam Pob I Attending Clinician Unavailable Anene LOADING DOCK HELPER Attending Clinician ANENE Attending Clinician Unavailable Payers Payer Name Policy Type Policy Number Effective Date Expiration Date Royal bulalrd [facility] [id number] 2016 2019 HOSP [facility] 00:00:00 00:00:00 Problems Condition Condition Condition Status Onset Resolution Last Treating Co mments Source Name Details Category Date Date Treatment Clinician Date HTN HTN Disease Active Univers (hypertens (hypertens 7-05 it y of ion) ion) 00:00: [place] [facility] Branch Chest pain Chest pain Disease Active U nivers 7-30 ity of 00:00: [place] [facility] Metabolic Metabolic Disease Active Uni vers syndrome X syndrome X 5-04 it y of 00:00: [place] [facility] 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 00:00: [place] with with Medical neuropathy neuropathy Br anch Type 2 Type 2 Disease Active Univers diabetes diabetes 3-20 ity of mellitus mellitus 00:00: [place] with with 00 Medical diabetic diabetic Branch [...] Quantity Comments Source Exposure to Not sure [facility] SARS-CoV-2 [place] Medical (event) Branch Tobacco use and 2017-01-12 2017-01-12 Never used Universit y of exposure 00:00:00 00:00:00 [facility] Alcohol intake 2017-01-12 2017-01-12 Current University of 00:00:00 00:00:00 non-drinker of [facility] alcohol Branch (finding) Sex Ass[birth year] At [birth year] Universit y of 00:00:00 00:00:00 [facility] Smoking Status Start Date Stop Date Source Never smoker [facility] Branch Medications Ordered Filled Start Stop [...] dose as instructed by provider metroNIDAZO Yes [id number] 500mg Take 1 Univers LE 500 mg 1-14 tablet by ity o f tablet 00:00: mouth [place] 00 every 12 Medical (twelve) Branch hours. fluconazole Yes Take one Un pricila 150 mg 1-14 tablet by ity of tablet 00:00: mouth 72 [place] 00 hours Medical after Branch first dose as instructed by provider metroNIDAZO Yes [id number] 500mg Take 1 Univers LE 500 mg 1-14 tablet by ity o f tablet 00:00: mouth [place] 00 every 12 Medical (twelve) Branch hours. fluconazole Yes Take one Un pricila 150 mg 1-14 tablet by ity of tablet 00:00: mouth 72 [place] 00 hours Medical after Branch first dose as instructed by provider metroNIDAZO Yes [id number] 500mg Take 1 Univers LE 500 mg 1-14 tablet by ity o f tablet 00:00: mouth [place] 00 every 12 Medical (twelve) Branch hours. nystatin-tr 202- No [id number] Apply to [facility] 03-17 area(s) 2 it y of cream 00:00: 05:59 (two) [place] 00 :00 times Medical daily for Branch 14 days. nystatin-tr 2020- No [id number] [facility] 2 it y of cream 00:00: 05:59 (two) [place] 00 :00 times Medical daily for Branch 14 days. nystatin-tr 2020- No [id number] [facility] area(s) 2 it y of cream 00:00: 05:59 (two) [place] 00 :00 times Medical daily for Branch 14 days. nystatin-tr 2020- No [id number] [facility] area(s) 2 it y of cream 00:00: 05:59 (two) [place] 00 :00 times Medical daily for Branch 14 days. nystatin-tr 2020- No [id number] [facility] area(s) 2 it y of cream 00:00: 05:59 (two) [place] 00 :00 times Medical daily for Branch 14 days. nystatin-tr 2020- No [id number] [facility] area(s) 2 it y of cream 00:00: 05:59 (two) [place] 00 :00 times Medical daily for Branch 14 days. nystatin-tr 2020- No [id number] [facility] area(s) 2 it y of cream 00:00: 05:59 (two) [place] 00 :00 times Medical daily for Branch 14 days. nystatin-tr 2020- No [id number] [facility] area(s) 2 it y of cream 00:00: 05:59 (two) [place] 00 :00 times Medical daily for Branch 14 days. fluconazole 2020-2020- No [id number] 150mg Take 1 Univers 150 mg 03-17 tablet by ity of tablet 00:00: 05:59 [place] 00 :[place] now for 1 Medical dose. Take Branch one tablet now and the second tablet in 72 hours fluconazole 2020- No [id number] 150mg Take 1 Univers 150 mg 03-17 tablet by ity of tablet 00:00: 05:59 [place] 00 :[place] now for 1 Medical dose. Take Branch one tablet now and the second tablet in 72 hours fluconazole 2020- No [id number] 150mg Take 1 Univers 150 mg 03-17 tablet by ity of tablet 00:00: 05:59 mouth [place] 00 :[place] now for 1 Medical dose. Take Branch one tablet now and the second tablet in 72 hours fluconazole 2020- No [id number] 150mg Take 1 Univers 150 mg 03-17 tablet by ity of tablet 00:00: 05:59 [place] 00 :[place] now for 1 Medical dose. Take Branch one tablet now and the second tablet in 72 hours sitaGLIPtin 2016-03 Yes [id number] 100mg Take 1 Univers (JANUVIA) 0-23 tablet by ity o f 100 mg 00:00: mouth [place] tablet 00 daily. Medical Branch metformin 2016-03 Yes [id number] 750mg Take 1 Univers ER 750 mg 0-23 tablet by ity o f 24 hr 00:00: mouth 2 [place] tablet 00 (two) Medical times Branch daily with meals. insulin 2016-03 Yes [id number] 35U inject Uni vers glargine 0-23 35-45 ity of (TOUJEO 00:00: Units [place] SOLOSTAR) 00 under the Medic al 300 unit/mL skin every Br anch (1.5 mL) morning. InPn sitaGLIPtin 2016-03 Yes [id number] 100mg Take 1 Univers (JANUVIA) 0-23 tablet by ity o f 100 mg 00:00: mouth [place] tablet 00 daily. Medical Branch metformin 2016-03 Yes [id number] 750mg Take 1 Univers ER 750 mg 0-23 tablet by ity o f 24 hr 00:00: mouth 2 [place] tablet 00 (two) Medical times Branch daily with meals. insulin 2016-03 Yes [id number] 35U inject Uni vers glargine 0-23 35-45 ity of (TOUJEO 00:00: Units [place] SOLOSTAR) 00 under the Medic al 300 unit/mL skin every Br anch (1.5 mL) morning. InPn sitaGLIPtin 2016-03 Yes [id number] 100mg Take 1 Univers (JANUVIA) 0-23 tablet by ity o f 100 mg 00:00: mouth [place] tablet 00 daily. Medical Branch metformin 2016-03 Yes [id number] 750mg Take 1 Univers ER 750 mg 0-23 tablet by ity o f 24 hr 00:00: mouth 2 [place] tablet 00 (two) Medical times Branch daily with meals. insulin 2016-03 Yes [id number] 35U inject Uni vers glargine 0-23 35-45 ity of (TOUJEO 00:00: Units [place] SOLOSTAR) 00 under the Medic al 300 unit/mL skin every Br anch (1.5 mL) morning. InPn sitaGLIPtin 2016-03 Yes [id number] 100mg Take 1 Univers (JANUVIA) 0-23 tablet by ity o f 100 mg 00:00: mouth [place] tablet 00 daily. Medical Branch metformin 2016-03 Yes [id number] 750mg Take 1 Univers ER 750 mg 0-23 tablet by ity o f 24 hr 00:00: mouth 2 [place] tablet 00 (two) Medical times Branch daily with meals. insulin 2016-03 Yes [id number] 35U inject Uni vers glargine 0-23 35-45 ity of (TOUJEO 00:00: Units [place] SOLOSTAR) 00 under the Medic al 300 unit/mL skin every Br anch (1.5 mL) morning. InPn sitaGLIPtin 2016-03 Yes [id number] 100mg Take 1 Univers (JANUVIA) 0-23 tablet by ity o f 100 mg 00:00: mouth [place] tablet 00 daily. Medical Branch metformin 2016-03 Yes [id number] 750mg Take 1 Univers ER 750 mg 0-23 tablet by ity o f 24 hr 00:00: mouth 2 [place] tablet 00 (two) Medical times Branch daily with meals. insulin 2016-03 Yes [id number] 35U inject Uni vers glargine 0-23 35-45 ity of (TOUJEO 00:00: Units [place] SOLOSTAR) 00 under the Medic al 300 unit/mL skin every Br anch (1.5 mL) morning. InPn sitaGLIPtin 2016-03 Yes [id number] 100mg Take 1 Univers (JANUVIA) 0-23 tablet by ity o f 100 mg 00:00: mouth [place] tablet 00 daily. Medical Branch metformin 2016-03 Yes [id number] 750mg Take 1 Univers ER 750 mg 0-23 tablet by ity o f 24 hr 00:00: mouth 2 [place] tablet 00 (two) Medical times Branch daily with meals. insulin 2016-03 Yes [id number] 35U inject Uni vers glargine 0-23 35-45 ity of (TOUJEO 00:00: Units [place] SOLOSTAR) 00 under the Medic al 300 unit/mL skin every Br anch (1.5 mL) morning. InPn sitaGLIPtin 2016-03 Yes [id number] 100mg Take 1 Univers (JANUVIA) 0-23 tablet by ity o f 100 mg 00:00: mouth [place] tablet 00 daily. Medical Branch metformin 2016-03 Yes [id number] 750mg Take 1 Univers ER 750 mg 0-23 tablet by ity o f 24 hr 00:00: mouth 2 [place] tablet 00 (two) Medical times Branch daily with meals. insulin 2016-03 Yes [id number] 35U inject Uni vers glargine 0-23 35-45 ity of (TOUJEO 00:00: Units [place] SOLOSTAR) 00 under the Medic al 300 unit/mL skin every Br anch (1.5 mL) morning. InPn sitaGLIPtin 2016-03 Yes [id number] 100mg Take 1 Univers (JANUVIA) 0-23 tablet by ity o f 100 mg 00:00: mouth [place] tablet 00 daily. Medical Branch metformin 2016-03 Yes [id number] 750mg Take 1 Univers ER 750 mg 0-23 tablet by ity o f 24 hr 00:00: mouth 2 [place] tablet 00 (two) Medical times Branch daily with meals. insulin 2016- Yes [id number] 35U inject Uni vers glargine 0-23 35-45 ity of (TOUJEO 00:00: Units [place] SOLOSTAR) 00 under the Medic al 300 unit/mL skin every Br anch (1.5 mL) morning. InPn sitaGLIPtin 2016-03 Yes [id number] 100mg Take 1 Univers (JANUVIA) 0-23 tablet by ity o f 100 mg 00:00: mouth [place] tablet 00 daily. Medical Branch metformin 2016-03 Yes [id number] 750mg Take 1 Univers ER 750 mg 0-23 tablet by ity o f 24 hr 00:00: mouth 2 [place] tablet 00 (two) Medical times Branch daily with meals. insulin 2016-03 Yes [id number] 35U inject Uni vers glargine 0-23 35-45 ity of (TOUJEO 00:00: Units [place] SOLOSTAR) 00 under the Medic al 300 unit/mL skin every Br anch (1.5 mL) morning. InPn sitaGLIPtin 2016-03 Yes [id number] 100mg Take 1 Univers (JANUVIA) 0-23 tablet by ity o f 100 mg 00:00: mouth [place] tablet 00 daily. Medical Branch metformin 2016-03 Yes [id number] 750mg Take 1 Univers ER 750 mg 0-23 tablet by ity o f 24 hr 00:00: mouth 2 [place] tablet 00 (two) Medical times Branch daily with meals. insulin 2016-03 Yes [id number] 35U inject Uni vers glargine 0-23 35-45 ity of (TOUJEO 00:00: Units [place] SOLOSTAR) 00 under the Medic al 300 unit/mL skin every Br anch (1.5 mL) morning. InPn sitaGLIPtin 2016-03 Yes [id number] 100mg Take 1 Univers (JANUVIA) 0-23 tablet by ity o f 100 mg 00:00: mouth [place] tablet 00 daily. Medical Branch metformin 2016-03 Yes [id number] 750mg Take 1 Univers ER 750 mg 0-23 tablet by ity o f 24 hr 00:00: mouth 2 [place] tablet 00 (two) Medical times Branch daily with meals. insulin 2016-03 Yes [id number] 35U inject Uni vers glargine 0-23 35-45 ity of (TOUJEO 00:00: Units [place] SOLOSTAR) 00 under the Medic al 300 unit/mL skin every Br anch (1.5 mL) morning. InPn sitaGLIPtin 2016-03 Yes [id number] 100mg Take 1 Univers (JANUVIA) 0-23 tablet by ity o f 100 mg 00:00: mouth [place] tablet 00 daily. Medical Branch metformin 2016-03 Yes [id number] 750mg Take 1 Univers ER 750 mg 0-23 tablet by ity o f 24 hr 00:00: mouth 2 [place] tablet 00 (two) Medical times Branch daily with meals. insulin 2016-03 Yes [id number] 35U inject Uni vers glargine 0-23 35-45 ity of (TOUJEO 00:00: Units [place] SOLOSTAR) 00 under the Medic al 300 unit/mL skin every Br anch (1.5 mL) morning. InPn sitaGLIPtin 2016-03 Yes [id number] 100mg Take 1 Univers (JANUVIA) 0-23 tablet by ity o f 100 mg 00:00: mouth [place] tablet 00 daily. Medical Branch metformin 2016-03 Yes [id number] 750mg Take 1 Univers ER 750 mg 0-23 tablet by ity o f 24 hr 00:00: mouth 2 [place] tablet 00 (two) Medical times Branch daily with meals. insulin 2016-03 Yes [id number] 35U inject Uni vers glargine 0-23 35-45 ity of (TOUJEO 00:00: Units [place] SOLOSTAR) 00 under the Medic al 300 unit/mL skin every Br anch (1.5 mL) morning. InPn atorvastati 2016-03 Yes [id number] 40mg Take 1 Univers n 40 mg 0-11 tablet by ity of tablet 00:00: mouth at [place] 00 bedtime. Medical Branch blood sugar 2016-03 Yes [id number] Use TID, Univers diagnostic 0-11 DX E11.9 ity o f strip 00:00: ([facility] Branch approval) requesting True Track Strips atorvastati 2016-03 Yes [id number] 40mg Take 1 Univers n 40 mg 0-11 tablet by ity of tablet 00:00: mouth at [place] 00 bedtime. Medical Branch blood sugar 2016-03 Yes [id number] Use TID, Univers diagnostic 0-11 DX E11.9 ity o f strip 00:00: ([facility] approval) requesting True Track Strips atorvastati 2016-03 Yes [id number] 40mg Take 1 Univers n 40 mg 0-11 tablet by ity of tablet 00:00: mouth at [place] 00 bedtime. [facility] Branch blood sugar 2016-03 Yes [id number] Use TID, Univers diagnostic 0-11 DX E11.9 ity o f strip 00:00: ([facility] Branch approval) requesting True Track Strips atorvastati 2016-03 Yes [id number] 40mg Take 1 Univers n 40 mg 0-11 tablet by ity of tablet 00:00: mouth at [place] 00 bedtime. [facility] blood sugar 2016-03 Yes [id number] Use TID, Univers diagnostic 0-11 DX E11.9 ity o f strip 00:00: ([facility] approval) requesting True Track Strips atorvastati 2016-03 Yes [id number] 40mg Take 1 Univers n 40 mg 0-11 tablet by ity of tablet 00:00: mouth at [place] 00 bedtime. [facility] blood sugar 2016-03 Yes [id number] Use TID, Univers diagnostic 0-11 DX E11.9 ity o f strip 00:00: ([facility] approval) requesting True Track Strips atorvastati 2016-03 Yes [id number] 40mg Take 1 Univers n 40 mg 0-11 tablet by ity of tablet 00:00: mouth at [place] 00 bedtime. [facility] blood sugar 2016-03 Yes [id number] Use TID, Univers diagnostic 0-11 DX E11.9 ity o f strip 00:00: ([facility] approval) requesting True Track Strips atorvastati 2016-03 Yes [id number] 40mg Take 1 Univers n 40 mg 0-11 tablet by ity of tablet 00:00: mouth at [place] 00 bedtime. [facility] blood sugar 2016-03 Yes [id number] Use TID, Univers diagnostic 0-11 DX E11.9 ity o f strip 00:00: ([facility] approval) requesting True Track Strips atorvastati 2016-03 Yes [id number] 40mg Take 1 Univers n 40 mg 0-11 tablet by ity of tablet 00:00: mouth at [place] 00 bedtime. [facility] blood sugar 2016-03 Yes [id number] Use TID, Univers diagnostic 0-11 DX E11.9 ity o f strip 00:00: ([facility] approval) requesting True Track Strips atorvastati 2016-03 Yes [id number] 40mg Take 1 Univers n 40 mg 0-11 tablet by ity of tablet 00:00: mouth at [place] 00 bedtime. [facility] blood sugar 2016-03 Yes [id number] Use TID, Univers diagnostic 0-11 DX E11.9 ity o f strip 00:00: ([facility] approval) requesting True Track Strips atorvastati 2016- Yes [id number] 40mg Take 1 Univers n 40 mg 0-11 tablet by ity of tablet 00:00: mouth at [place] 00 bedtime. [facility] blood sugar 2016-03 Yes [id number] Use TID, Univers diagnostic 0-11 DX E11.9 ity o f strip 00:00: ([facility] approval) requesting True Track Strips atorvastati 2016-03 Yes [id number] 40mg Take 1 Univers n 40 mg 0-11 tablet by ity of tablet 00:00: mouth at [place] 00 bedtime. [facility] blood sugar 2016-03 Yes [id number] Use TID, Univers diagnostic 0-11 DX E11.9 ity o f strip 00:00: ([facility] approval) requesting True Track Strips atorvastati 2016-03 Yes [id number] 40mg Take 1 Univers n 40 mg 0-11 tablet by ity of tablet 00:00: mouth at [place] 00 bedtime. [facility] blood sugar 2016-03 Yes [id number] Use TID, Univers diagnostic 0-11 DX E11.9 ity o f strip 00:00: ([facility] approval) requesting True Track Strips atorvastati 2016-03 Yes [id number] 40mg Take 1 Univers n 40 mg 0-11 tablet by ity of tablet 00:00: mouth at [place] 00 bedtime. [facility] blood sugar 2016-03 Yes [id number] Use TID, Univers diagnostic 0-11 DX E11.9 ity o f strip 00:00: ([facility] approval) requesting True Track Strips insulin Yes [id number] Use with Un pricila syringe-nee 5-04 insulin 3 ity of dle U-100 1 00:00: times [place] ml (INSULIN 00 daily Medical SYRINGE) 1 Branch mL 29 x 1/2" Syrg insulin Yes [id number] Use with Un pricila syringe-nee 5-04 insulin 3 ity of dle U-100 1 00:00: times [place] ml (INSULIN 00 daily Medical SYRINGE) 1 Branch mL 29 x 1/2" Syrg insulin Yes [id number] Use with Un pricila syringe-nee 5-04 insulin 3 ity of dle U-100 1 00:00: times [place] ml (INSULIN 00 daily Medical SYRINGE) 1 Branch mL 29 x 1/2" Syrg insulin 2015- Yes [id number] Use with Un pircila syringe-nee 5-04 insulin 3 ity of dle U-100 1 00:00: times [place] ml (INSULIN 00 daily Medical SYRINGE) 1 Branch mL 29 x 1/2" Syrg insulin Yes [id number] Use with Un pricila syringe-nee 5-04 insulin 3 ity of dle U-100 1 00:00: times [place] ml (INSULIN 00 daily Medical SYRINGE) 1 Branch mL 29 x 1/2" Syrg insulin Yes [id number] Use with Un pricila syringe-nee 5-04 insulin 3 ity of dle U-100 1 00:00: times [place] ml (INSULIN 00 daily Medical SYRINGE) 1 Branch mL 29 x 1/2" Syrg insulin Yes [id number] Use with Un pricila syringe-nee 5-04 insulin 3 ity of dle U-100 1 00:00: times [place] ml (INSULIN 00 daily Medical SYRINGE) 1 Branch mL 29 x 1/2" Syrg insulin Yes [id number] Use with Un pricila syringe-nee 5-04 insulin 3 ity of dle U-100 1 00:00: times [place] ml (INSULIN 00 daily Medical SYRINGE) 1 Branch mL 29 x 1/2" Syrg insulin Yes [id number] Use with Un pricila syringe-nee 5-04 insulin 3 ity of dle U-100 1 00:00: times [place] ml (INSULIN 00 daily Medical SYRINGE) 1 Branch mL 29 x 1/2" Syrg insulin Yes [id number] Use with Un pricila syringe-nee 5-04 insulin 3 ity of dle U-100 1 00:00: times [place] ml (INSULIN 00 daily Medical SYRINGE) 1 Branch mL 29 x 1/2" Syrg insulin Yes [id number] Use with Un pricila syringe-nee 5-04 insulin 3 ity of dle U-100 1 00:00: times [place] ml (INSULIN 00 daily Medical SYRINGE) 1 Branch mL 29 x 1/2" Syrg insulin Yes [id number] Use with Un pricila syringe-nee 5-04 insulin 3 ity of dle U-100 1 00:00: times [place] ml (INSULIN 00 daily Medical SYRINGE) 1 Branch mL 29 x 1/2" Syrg insulin 2016-0 Yes [id number] Use with Un pricila syringe-nee 5-04 insulin 3 ity of dle U-100 1 00:00: times [place] ml (INSULIN 00 daily Medical SYRINGE) 1 Branch mL 29 x 1/2" Syrg Insulin 2016-0 Yes Use as Univers [place], 3-25 directed ity of Disposable, 00:00: [place] (SURE-FINE 00 Medical PEN Branch NEEDLES) 31 gauge x 3/16" Ndle Insulin 2016-0 Yes Use as Univers [place], 3-25 directed ity of Disposable, 00:00: [place] (SURE-FINE 00 Medical PEN Branch NEEDLES) 31 gauge x 3/16" Ndle Insulin 2016-0 Yes Use as Univers [place], 3-25 directed ity of Disposable, 00:00: [place] (SURE-FINE 00 Medical PEN Branch NEEDLES) 31 gauge x 3/16" Ndle Insulin 2016-0 Yes Use as Univers [place], 3-25 directed ity of Disposable, 00:00: [place] (SURE-FINE 00 Medical PEN Branch NEEDLES) 31 gauge x 3/16" Ndle Insulin 2016-0 Yes Use as Univers [place], 3-25 directed ity of Disposable, 00:00: [place] (SURE-FINE 00 Medical PEN Branch NEEDLES) 31 gauge x 3/16" Ndle Insulin 2016-0 Yes Use as Univers [place], 3-25 directed ity of Disposable, 00:00: [place] (SURE-FINE 00 Medical PEN Branch NEEDLES) 31 gauge x 3/16" Ndle Insulin 2016-0 Yes Use as Univers [place], 3-25 directed ity of Disposable, 00:00: [place] (SURE-FINE 00 Medical PEN Branch NEEDLES) 31 gauge x 3/16" Ndle Insulin 2016-0 Yes Use as Univers [place], 3-25 directed ity of Disposable, 00:00: [place] (SURE-FINE 00 Medical PEN Branch NEEDLES) 31 gauge x 3/16" Ndle Insulin 2016-0 Yes Use as Univers [place], 3-25 directed ity of Disposable, 00:00: [place] (SURE-FINE 00 Medical PEN Branch NEEDLES) 31 gauge x 3/16" Ndle Insulin 2016-0 Yes Use as Univers [place], 3-25 directed ity of Disposable, 00:00: [place] (SURE-FINE 00 Medical PEN Branch NEEDLES) 31 gauge x 3/16" Ndle Insulin 2016-0 Yes Use as Univers [place], 3-25 directed ity of Disposable, 00:00: [place] (SURE-FINE 00 Medical PEN Branch NEEDLES) 31 gauge x 3/16" Ndle Insulin 2016-0 Yes Use as Univers [place], 3-25 directed ity of Disposable, 00:00: [place] (SURE-FINE 00 Medical PEN Branch NEEDLES) 31 gauge x 3/16" Ndle Insulin 2016-0 Yes Use as Univers [place], 3-25 directed ity of Disposable, 00:00: [place] (SURE-FINE 00 Medical PEN Branch NEEDLES) 31 gauge x 3/16" Ndle Vital Signs Vital Name Observation Time Observation Value Comments Source Systolic blood 2020-03-17 21:27:00 137 mm[Hg] [facility] Diastolic blood 2020-03-17 21:27:00 94 mm[facility]Hg[facility] 2020-03-17 21:27:00 105 /min [facility] Body temperature 2020-03-17 21:04:00 36.83 Dorie [facility] Respiratory rate 2020-03-17 21:04:00 16 /min [facility] Body height 2020-03-17 21:04:00 160 cm [facility] Body weight 2020-03-17 21:04:00 65.772 kg [facility] BMI 2020-03-17 21:04:00 25.69 kg/m2 [facility] Procedures Procedure Date / Time Performing Clinician Source Performed GC & CHLAMYDIA AMPLIFIED 2020-03-17 21:16:00 [facility]-THIN PREP 2020-03-17 21:16:00 AdumMarlena [facility] TRICHOMONAS AMPLIFIED 2020-03-17 21:16[facility]LIQUID BASED-CP 2020-03-17 21:16:00 [facility] 2020-03-17 20:11:55 [facility] NO SHOW OR MISSED 2020-03-17 20:11:05 Doctor Unassigned, Crys [facility] APPOINTMENT POLICY [facility] h ACKNOWLEDGEMENT Encounters Start End Encounter Admission Attending Care Care Encounter Source Date/Time Date/Time Type Type Clinicians Facility Department ID 2021-03-18 2021-03-18 Outpatient ADUM, [facility] [id number] [facility] 15:30:00 15:30:00 MARLENA [id number] [facility] 2020-08-13 2020-08-13 Outpatient SEPTIMUS, [facility] [id number] [place] 00:00:00 00:00:00 HENRI 025 Method i 2020-07-23 2020-07-23 Outpatient [facility] [id number] [place] 00:00:00 00:00:00 309 Method i 2020-07-23 2020-07-23 Outpatient SUBHA, [facility] [id number] [place] 00:00:00 00:00:00 JUDY 529 Method i 2020-07-23 2020-07-23 Outpatient SUBHA, [facility] [id number] [place] 00:00:00 00:00:00 JUDY 606 Method i 2020-07-23 2020-07-23 Outpatient SUBHA, [facility] [id number] [place] 00:00:00 00:00:00 JUDY 695 Method i 2020-07-23 2020-07-23 Outpatient SUBHA, [facility] [id number] [place] 00:00:00 00:00:00 JUDY 769 Method i 2020-07-23 2020-07-23 Outpatient SUBHA, [facility] [id number] [place] 00:00:00 00:00:00 JUDY 841 Method i 2020-07-23 2020-07-23 Outpatient SUBHA, [facility] [id number] [place] 00:00:00 00:00:00 JUDY 914 Method i 2020-05-21 2020-05-21 [facility] [id number] Univers 00:00:00 00:00:00 Outreach Max[facility] [id number] i ty of [facility] [id number] [facility] [id number] Ma dical 388 Branch 2020-04-17 2020-04-17 Outpatient [facility] [facility] [id number] P-20 Univers 10:00:00 10:00:00 WONDIFUL [id number] ity o f [facility] 2020-04-15 2020-04-15 Outpatient R LOVELACE, [facility] [id number] Univers 10:30:00 10:30:00 WENTONG [id number] ity [facility] 2020-04-15 2020-04-15 Outpatient R LOVELACE, [facility] [id number] Univers 10:30:00 10:30:00 WENTONG ity [facility] 2020-04-03 2020-04-03 Outpatient ADUM, [facility] [id number] Univers 10:00:00 10:00:00 MARLENA [id number] ity [facility] 2020-04-03 2020-04-03 Outpatient R ADUM, [facility] [id number] Univers 10:00:00 10:00:00 MARLENA ity [facility] 2020-04-02 2020-04-02 Outpatient R ADUM, [facility] [id number] Univers 00:00:00 00:00:00 MARLENA [id number] ity [facility] 2020-04-02 2020-04-02 Outpatient R ADUM, [facility] [id number] Univers 00:00:00 00:00:00 MARLENA ity [facility] 2020-03-27 2020-03-27 [facility] [id number] Univers 00:00:00 00:00:00 Marlena Holder [id number] [id number] [phone] Ma dical nal [address] 2020-03-19 2020-03-19 Case Adum, [facility] [id number] Univers 00:00:00 00:00:00 Management Marlena Holder [id number] [id number] Profess[place] [phone] Ma dical nal [address] [facility] 2020-03-18 2020-03-18 Jumpbasting Collar Baster 2, Adc Lab [facility] [id number] Univers 10:17:57 10:32:57 Visit Michelle Santos [id number] [id number] [phone] Ma dical nal [address] [facility] 2020-03-18 2020-03-18 Outpatient [facility] [id number] Univers 10:00:00 10:00:[id number] 2020-03-18 [facility] [id number] Univers 10:00:00 10:00:00 [facility]-03-17 2020-03-17 Office Adum, [facility] [id number] Univers 14:10:59 16:09:53 Visit Marlena Holder [id number] [id number] [phone] Ma dical nal [address] [facility] 2020-03-17 2020-03-17 Outpatient R AD, [facility] [id number] Univers 14:30:00 14:30:00 [facility] [id number] [facility]-03-17 2020-03-17 Outpatient R ADUM, [facility] [id number] Univers 14:30:00 14:30:00 [facility]-17 2020-03-17 Telephone Adum, [facility] [id number] Univers 00:00:00 00:00:00 Marlena Holder [id number] [id number] [phone] Ma dical nal [address] [facility] 2020-03-17 2020-03-17 Orders Doctor GUERRA [id number] Univers 00:00:00 00:00:00 Only Unassigned, SHARLA [id number] [facility] [place] [facility] [id number] [place] [phone] [address] 2020-01-17 2020-01-17 Outpatient R ADUM, [facility] [id number] Univers 14:00:00 14:00:00 MARLENA [id number] ity of [facility] 2020-01-17 2020-01-17 Outpatient R ADUM, [facility] [id number] Univers 14:00:00 14:00:00 MARLENA ity [facility] 2020-01-14 2020-01-14 Outpatient R ADUM, [facility] [id number] Univers 09:00:00 09:00:00 MARLENA ity of [facility] 2019-12-19 2019-12-19 Outpatient R ADUM, [facility] [id number] Univers 15:30:00 15:30:00 MARLENA [id number] ity [facility] 2019-12-19 2019-12-19 Outpatient R ADUM, [facility] [id number] Univers 15:30:00 15:30:00 MARLENA ity [facility] 2019-12-18 2019-12-18 Outpatient R ADUM, [facility] [id number] Univers 15:30:00 15:30:00 MARLENA [id number] ity [facility] 2019-12-18 2019-12-18 Outpatient R ADUM, [facility] [id number] Univers 15:30:00 15:30:00 MARLENA ity [facility] 2019-12-18 2019-12-18 Outpatient R ADUM, [facility] [id number] Univers 15:30:00 15:30:00 [facility] 2019-09-25 2019-09-25 Laboratory Lab, Adc Fam Pob I [facility] [id number] Univers 17:20:00 17:40:00 Only Anene, [facility] [id number] ity of [employer] [id number] [place] Lamonte [phone] [address] 2019-09-25 2019-09-25 Outpatient R [facility] [id number] Univers 17:20:00 17:20:00 [id number] whitney [facility] 2019-09-25 2019-09-25 Outpatient R MARICRUZ, [facility] [id number] Univers 17:20:00 17:20:00 GRACIELA olson [facility] Results Test Description Test Time Test Comments Results Result Comments Source HIGH RISK HPV-THIN PREP 2020-03-19 04:39:00 Test Item Value Reference Range Interpretation Comme nts High Risk HPV (test code = Negative Negative 5619947382) ELI (test code = ELI) A positive [...] data. Lab Interpretation (test code = Normal 32394-2) [facility] [id number] 04:39:00 Test Item Value Reference Range Interpretation Comments High Risk HPV (test Negative Negative code = 2566952705) ELI (test code = ELI) A positive [...] data. Lab Interpretation Normal (test code = 33465-7) [facility] AMPLIFIED [id number] 18:39:00 Test Item Value Reference Range Interpretation Comments C. trachomatis Nucleic Negative Negative Acid (test code = 18892-8) N. gonorrhoeae Nucleic Negative Negative Acid (test code = 99726-0) ELI (test code = ELI) Reliable results [...] clinician. Lab Interpretation Normal (test code = 16344-8) [facility] AMPLIFIED [id number] 18:39:00 Test Item Value Reference Range Interpretation Comments C. trachomatis Nucleic Negative Negative Acid (test code = 53362-5) N. gonorrhoeae Nucleic Negative Negative Acid (test code = 51625-8) ELI (test code = ELI) Reliable results [...] clinician. Lab Interpretation Normal (test code = 19994-3) [facility] [id number] 18:29:00 Test Item Value Reference Range Interpretation Comments Trichomonas Nucleic Negative Negative Acid (test code = 91679-7) ELI (test code = ELI) Reliable results [...] clinician. Lab Interpretation Normal (test code = 79993-9) [facility] [id number] 18:29:00 Test Item Value Reference Range Interpretation Comments Trichomonas Nucleic Negative Negative Acid (test code = 76228-8) ELI (test code = ELI) Reliable results [...] clinician. Lab Interpretation Normal (test code = 10590-9) [facility]
[2021-07-27] MEDS ORDERED: NA CHLORIDE 0.9% 1,000 ML ONE (08:53)
[2021-07-27] MEDS ORDERED: INSULIN -REGULAR HUMAN 50 UNIT/0.5 ML ML ONE (09:15)
--- NOTE | 2021-07-27 11:22 | EDPHYS ---
Physician Documentation [facility] Name: Starla Rojas Age: 51 yrs Sex: Female : 1970 Arrival Date: 07/27/2021 Time: 08:26 Bed 16 Private MD: ED Physician Gibson Kwong HPI: 07/27 09:22 This 51 yrs old Black Female presents to ER via Ambulatory with complaints of rn bodyaches, Ear Pain, Cough. 09:23 The patient or guardian reports cough, that is intermittent, described as mild, with no rn sputum. Onset: The symptoms/episode began/occurred 3 day(s) ago. Severity of symptoms: At their worst the symptoms were mild, in the emergency department the symptoms are unchanged. Modifying factors: The symptoms are alleviated by nothing, the symptoms are aggravated by nothing. Associated signs and symptoms: Pertinent positives: earache, rhinorrhea, sore throat, Pertinent negatives: chest pain, diarrhea. The patient has not experienced similar symptoms in the past. The patient has not recently seen a physician. Pt reports daughter with similar illness last week, now she herself has cough/congestion/sore throat. No chest pain or sob. No fever. + chills. Reports not checking blood sugar. . 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 - Family history:: not pertinent. - Social history:: Smoking status: Patient denies any tobacco usage or history of. - Hospitalizations: : No recent hospitalization is reported. ROS: 09:23 Constitutional: Negative for fever, and weight loss Eyes: Negative for injury, pain, rn redness, and discharge, ENT: + right ear pain, + sore throat, + congestion Neck: Negative for injury, pain, and swelling, Cardiovascular: Negative for chest pain, palpitations, and edema, Respiratory: Negative for shortness of breath, wheezing, and pleuritic chest pain, Abdomen/GI: Negative for abdominal pain, nausea, vomiting, diarrhea, and constipation, MS/Extremity: Negative for injury and deformity, Skin: Negative for injury, rash, and discoloration, Neuro: Negative for headache, weakness, numbness, tingling, and seizure. Exam: 09:23 Constitutional: This is a well developed, well nourished patient who is awake, alert, rn and in no acute distress. Ambulatory to room without difficulty or assistance. Head/Face: Normocephalic, atraumatic. Eyes: Pupils equal round and reactive to light, extra-ocular motions intact. Lids and lashes normal. Conjunctiva and sclera are non-icteric and not injected. Cornea within normal limits. Periorbital areas with no swelling, redness, or edema. ENT: Mild pharyngeal erythema, no exudate, no swelling, Uvula midline. No stridor. Neck: Trachea midline, + mild non-tender cervical LAD Cardiovascular: Tachycardic, regular. No pulse deficits. Respiratory: No increased work of breathing, no retractions or nasal flaring. Skin: Warm, dry MS/ Extremity: Pulses equal, no cyanosis. Neuro: Awake and alert, GCS 15 Vital Signs: 08:32 BP 130 / 89; Pulse 115; Resp 18 S; Temp 97.7(TE); Pulse Ox 100% on R/A; aa5 10:11 BP 118 / 69; Pulse 94; Resp 18; Pulse Ox 97% on R/A; ph 11:54 BP 117 / 64; Pulse 91; Resp 16; Temp 97.5; Pulse Ox 98% on R/A; ph MDM: 08:27 Patient medically screened. rn 11:21 Differential Diagnosis: Bronchitis Influenza Upper Respiratory Infection Sinusitis rn Pharyngitis Viral Syndrome. Data reviewed: vital signs, nurses notes, lab test result(s), and as a result, I will discharge patient. Counseling: I had a detailed discussion with the patient and/or guardian regarding: the historical points, exam findings, and any diagnostic results supporting the discharge/admit diagnosis, lab results, the need for outpatient follow up, to return to the emergency department if symptoms worsen or persist or if there are any questions or concerns that arise at home. Special discussion: I discussed with the patient/guardian in detail that at this point there is no indication for admission to the hospital. It is understood, however, that if the symptoms persist or worsen the patient needs to return immediately for re-evaluation. 07/27 08:40 Order name: SARS-COV-2 RT PCR (Document "Date of Onset" if Symptomatic); Complete Time: rn 11:21 05/24 08:40 Order name: Flu; Complete Time: 10:02 rn 07/27 08:40 Order name: Strep; Complete Time: 10:02 rn 07/27 08:57 Order name: Glucose; Complete Time: 10:02 ap3 07/27 09:09 Order name: Glucose, Ancillary Testing; Complete Time: 10:02 EDMS 07/27 09:41 Order name: Throat Culture EDMS 07/27 08:40 Order name: Glucose Level; Complete Time: 09:06 rn 07/27 08:40 Order name: IV Start; Complete Time: 10:09 rn Administered Medications: 09:05 Drug: NS 0.9% 1000 ml Route: IV; Rate: 1000 ml; Site: left antecubital; ph 11:53 Follow up: Response: No adverse reaction; IV Status: Completed infusion; IV Intake: ph 1000ml 09:19 Drug: Insulin Regular Human 10 units {Co-Signature: ap3 (Betty Lee RN).} Route: ph Sub-Q; Site: left lower abdomen; 11:54 Follow up: Response: No adverse reaction ph Disposition Summary: 07/27/21 11:22 Discharge Ordered Location: Home rn Problem: new rn Symptoms: are unchanged rn Condition: Stable rn Diagnosis - Acute upper respiratory infection, unspecified rn Followup: rn - With: Private Physician - When: As needed - Reason: Recheck today's complaints, Re-evaluation by your physician Discharge Instructions: - Discharge Summary Sheet rn - Upper Respiratory Infection, Adult rn - Viral Respiratory Infection rn Forms: - Medication Reconciliation Form rn - Thank You Letter rn - Antibiotic rn clinical coordinator - Prescription Opioid Use rn Signatures: Dispatcher [employer] Gibson Lares MD MD rn Hall, Patricia, RN RN ph Betty Lee RN ap3
--- NOTE | 2021-07-27 11:22 | ER ---
Nurse's Notes [facility] Name: Starla Rojas Age: 51 yrs Sex: Female : 1970 Arrival Date: 07/27/2021 Time: 08:26 Bed 16 Private MD: Diagnosis: Acute upper respiratory infection, unspecified Presentation: 07/27 08:32 Chief complaint: Patient states: sore throat, chills, cough, right ear pain, and aa5 decreased appetite since Monday. 08:32 Coronavirus screen: chills, cough unrelated to allergies. Onset of symptoms was July. 08:32 Acuity: BRUNO 4 aa5 08:33 Ebola Screen: No symptoms or risks identified at this time. Initial Sepsis Screen: Does ph the patient meet any 2 criteria? No. Patient's initial sepsis screen is negative. Does the patient have a suspected source of infection? No. Patient's initial sepsis screen is negative. Risk Assessment: Do you want to hurt yourself or someone else? Patient reports no desire to harm self or others. 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 - Family history:: not pertinent. - Social history:: Smoking status: Patient denies any tobacco usage or history of. - Hospitalizations: : No recent hospitalization is reported. Screenin:33 Abuse screen: Denies threats or abuse. Denies injuries from another. Nutritional ph screening: No deficits noted. Tuberculosis screening: No symptoms or risk factors identified. Fall Risk None identified. Assessment: 09:00 General: Appears in no apparent distress. comfortable, well groomed, Behavior is calm, ph cooperative, appropriate for age, Reports chills for 12-24 hours. Pain: Complains of pain in right ear. Neuro: Level of Consciousness is awake, alert, obeys commands, Oriented to person, place, time, situation, Reports dizziness. Cardiovascular: Capillary refill < 3 seconds in bilateral fingers Patient's skin is warm and dry. Respiratory: Reports cough that is Airway is patent Respiratory effort is even, unlabored, Respiratory pattern is regular, symmetrical, Denies shortness of breath. GI: No signs and/or symptoms were reported involving the gastrointestinal system. EENT: Reports pain and muffled hearing in R ear, states, " It keeps popping". Derm: Skin is intact, is healthy with good turgor, Skin is pink, warm \\T\\ dry. Musculoskeletal: Circulation, motion, and sensation intact. Range of motion: intact in all extremities. Vital Signs: 08:32 BP 130 / 89; Pulse 115; Resp 18 S; Temp 97.7(TE); Pulse Ox 100% on R/A; aa5 10:11 BP 118 / 69; Pulse 94; Resp 18; Pulse Ox 97% on R/A; ph 11:54 BP 117 / 64; Pulse 91; Resp 16; Temp 97.5; Pulse Ox 98% on R/A; ph ED Course: 08:26 Patient arrived in ED. am2 08:27 Gibson Kwong MD is Attending Physician. rn 08:32 Nita Titus RN is Primary Nurse. ph 08:33 Arm band placed on Patient placed in an exam room, on a stretcher. ph 08:33 Patient has correct armband on for positive identification. Bed in low position. Call aa5 light in reach. Side rails up X 1. 08:38 Triage completed. aa5 09:00 Inserted saline lock: 20 gauge in left antecubital area, using aseptic technique. IV ph discontinued, intact, bleeding controlled, No redness/swelling at site. Pressure dressing applied. 11:52 No provider procedures requiring assistance completed. ph Administered Medications: 09:05 Drug: NS 0.9% 1000 ml Route: IV; Rate: 1000 ml; Site: left antecubital; ph 11:53 Follow up: Response: No adverse reaction; IV Status: Completed infusion; IV Intake: ph 1000ml 09:19 Drug: Insulin Regular Human 10 units {Co-Signature: ap3 (Betty Lee RN).} Route: ph Sub-Q; Site: left lower abdomen; 11:54 Follow up: Response: No adverse reaction ph Medication: 08:33 VIS not applicable for this client. ph Intake: 11:53 IV: 1000ml; Total: 1000ml. ph Outcome: 11:22 Discharge ordered by . rn 11:53 Discharged to home ambulatory. ph 11:53 Condition: good 11:53 Discharge instructions given to patient, Instructed on discharge instructions, follow up and referral plans. Demonstrated understanding of instructions, follow-up care. 11:55 Patient left the ED. ph Signatures: Gibson Kwong MD MD rn Calderon, Audri RN RN aa5 Nita Titus RN RN zaynab Avilez, Betty am2 Betty Lee RN ap3
[2021-07-27 12:19] VITALS: BP 117/64; TEMP 97.5; O2SAT 98
== END 2021-07-27 11:55 | disposition home or self-care (01) ==
LOC: ER 08:16
DX: J06.9 Acute upper respiratory infection, unspecified (principal); E11.9 Type 2 diabetes mellitus without complications; I10 Essential (primary) hypertension; Z20.822 Contact with and (suspected) exposure to COVID-19; Z88.5 Allergy status to narcotic agent
CPT/HCPCS: 36415; 82947; 87070; 87081; 87804; 96360; 96361; 96372; 99283; J1815; J7030; U0003

== ENCOUNTER 2021-08-05 16:40 | Emergency (ER) | payer SELFPAY ==
--- OUTSIDE RECORDS SUMMARY | 2021-08-05 16:44 | XMS REPORT | Continuity of Care Document ---
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 ANENE Attending Clinician Unavailable Payers Payer Name Policy Type Policy Number Effective Date Expiration Date [facility] [id number] 2016 2019 HOSP DIST 00:00:00 00:00:00 Problems Condition Condition Condition Status Onset Resolution Last Treating Co mments Source Name Details Category Date Date Treatment Clinician Date HTN HTN Disease Active Univers (hypertens (hypertens 7-05 it y of ion) ion) 00:00: [place] [facility] Branch Chest pain Chest pain Disease Active U nivers 7-30 ity of 00:00: [place] [facility] Metabolic Metabolic Disease Active Uni vers syndrome X syndrome X 5-04 it y of 00:00: [place] [facility] 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 00:00: [place] with with Medical neuropathy neuropathy Br anch Type 2 Type 2 Disease Active Univers diabetes diabetes 3-20 ity of mellitus mellitus 00:00: [place] with with 00 Medical diabetic diabetic Branch [...] Quantity Comments Source Exposure to Not sure [facility] SARS-CoV-2 [place] Medical (event) Branch Tobacco use and 2017-01-12 2017-01-12 Never used Universit y of exposure 00:00:00 00:00:00 [facility] Alcohol intake 2017-01-12 2017-01-12 Current University of 00:00:00 00:00:00 non-drinker of [facility] alcohol Branch (finding) Sex [birth year] Universit y of 00:00:00 00:00:00 [facility] Smoking Status Start Date Stop Date Source Never smoker [facility] Branch Medications Ordered Filled Start [...] dose as instructed by provider metroNIDAZO Yes [id number] 500mg Take 1 Univers LE 500 mg 1-14 tablet by ity o f tablet 00:00: mouth [place] 00 every 12 Medical (twelve) Branch hours. fluconazole Yes Take one Un pricila 150 mg 1-14 tablet by ity of tablet 00:00: mouth 72 [place] 00 hours Medical after Branch first dose as instructed by provider metroNIDAZO Yes [id number] 500mg Take 1 Univers LE 500 mg 1-14 tablet by ity o f tablet 00:00: mouth [place] 00 every 12 Medical (twelve) Branch hours. fluconazole Yes Take one Un pricila 150 mg 1-14 tablet by ity of tablet 00:00: mouth 72 [place] 00 hours Medical after Branch first dose as instructed by provider metroNIDAZO Yes [id number] 500mg Take 1 Univers LE 500 mg 1-14 tablet by ity o f tablet 00:00: mouth [place] 00 every 12 Medical (twelve) Branch hours. nystatin-tr 202- No [id number] Apply to [facility] 03-17 area(s) 2 it y of cream 00:00: 05:59 (two) [place] 00 :00 times Medical daily for Branch 14 days. nystatin-tr 2020- No [id number] [facility] 2 it y of cream 00:00: 05:59 (two) [place] 00 :00 times Medical daily for Branch 14 days. nystatin-tr 2020- No [id number] [facility] area(s) 2 it y of cream 00:00: 05:59 (two) [place] 00 :00 times Medical daily for Branch 14 days. nystatin-tr 2020- No [id number] [facility] area(s) 2 it y of cream 00:00: 05:59 (two) [place] 00 :00 times Medical daily for Branch 14 days. nystatin-tr 2020- No [id number] [facility] area(s) 2 it y of cream 00:00: 05:59 (two) [place] 00 :00 times Medical daily for Branch 14 days. nystatin-tr 2020- No [id number] [facility] area(s) 2 it y of cream 00:00: 05:59 (two) [place] 00 :00 times Medical daily for Branch 14 days. nystatin-tr 2020- No [id number] [facility] area(s) 2 it y of cream 00:00: 05:59 (two) [place] 00 :00 times Medical daily for Branch 14 days. nystatin-tr 2020- No [id number] [facility] area(s) 2 it y of cream 00:00: 05:59 (two) [place] 00 :00 times Medical daily for Branch 14 days. fluconazole 2020-2020- No [id number] 150mg Take 1 Univers 150 mg 03-17 tablet by ity of tablet 00:00: 05:59 [place] 00 :[place] now for 1 Medical dose. Take Branch one tablet now and the second tablet in 72 hours fluconazole 2020- No [id number] 150mg Take 1 Univers 150 mg 03-17 tablet by ity of tablet 00:00: 05:59 mouth [place] 00 :[place] now for 1 Medical dose. Take Branch one tablet now and the second tablet in 72 hours fluconazole 2020- No [id number] 150mg Take 1 Univers 150 mg 03-17 tablet by ity of tablet 00:00: 05:59 mouth [place] 00 :[place] now for 1 Medical dose. Take Branch one tablet now and the second tablet in 72 hours fluconazole 2020- No [id number] 150mg Take 1 Univers 150 mg 03-17 tablet by ity of tablet 00:00: 05:59 mouth [place] 00 :[place] now for 1 Medical dose. Take Branch one tablet now and the second tablet in 72 hours sitaGLIPtin 2016-03 Yes [id number] 100mg Take 1 Univers (JANUVIA) 0-23 tablet by ity o f 100 mg 00:00: mouth [place] tablet 00 daily. Medical Branch metformin 2016-03 Yes [id number] 750mg Take 1 Univers ER 750 mg 0-23 tablet by ity o f 24 hr 00:00: mouth 2 [place] tablet 00 (two) Medical times Branch daily with meals. insulin 2016-03 Yes [id number] 35U inject Uni vers glargine 0-23 35-45 ity of (TOUJEO 00:00: Units [place] SOLOSTAR) 00 under the Medic al 300 unit/mL skin every Br anch (1.5 mL) morning. InPn sitaGLIPtin 2016-03 Yes [id number] 100mg Take 1 Univers (JANUVIA) 0-23 tablet by ity o f 100 mg 00:00: mouth [place] tablet 00 daily. Medical Branch metformin 2016-03 Yes [id number] 750mg Take 1 Univers ER 750 mg 0-23 tablet by ity o f 24 hr 00:00: mouth 2 [place] tablet 00 (two) Medical times Branch daily with meals. insulin 2016-03 Yes [id number] 35U inject Uni vers glargine 0-23 35-45 ity of (TOUJEO 00:00: Units [place] SOLOSTAR) 00 under the Medic al 300 unit/mL skin every Br anch (1.5 mL) morning. InPn sitaGLIPtin 2016-03 Yes [id number] 100mg Take 1 Univers (JANUVIA) 0-23 tablet by ity o f 100 mg 00:00: mouth [place] tablet 00 daily. Medical Branch metformin 2016-03 Yes [id number] 750mg Take 1 Univers ER 750 mg 0-23 tablet by ity o f 24 hr 00:00: mouth 2 [place] tablet 00 (two) Medical times Branch daily with meals. insulin 2016-03 Yes [id number] 35U inject Uni vers glargine 0-23 35-45 ity of (TOUJEO 00:00: Units [place] SOLOSTAR) 00 under the Medic al 300 unit/mL skin every Br anch (1.5 mL) morning. InPn sitaGLIPtin 2016-03 Yes [id number] 100mg Take 1 Univers (JANUVIA) 0-23 tablet by ity o f 100 mg 00:00: mouth [place] tablet 00 daily. Medical Branch metformin 2016-03 Yes [id number] 750mg Take 1 Univers ER 750 mg 0-23 tablet by ity o f 24 hr 00:00: mouth 2 [place] tablet 00 (two) Medical times Branch daily with meals. insulin 2016-03 Yes [id number] 35U inject Uni vers glargine 0-23 35-45 ity of (TOUJEO 00:00: Units [place] SOLOSTAR) 00 under the Medic al 300 unit/mL skin every Br anch (1.5 mL) morning. InPn sitaGLIPtin 2016-03 Yes [id number] 100mg Take 1 Univers (JANUVIA) 0-23 tablet by ity o f 100 mg 00:00: mouth [place] tablet 00 daily. Medical Branch metformin 2016-03 Yes [id number] 750mg Take 1 Univers ER 750 mg 0-23 tablet by ity o f 24 hr 00:00: mouth 2 [place] tablet 00 (two) Medical times Branch daily with meals. insulin 2016-03 Yes [id number] 35U inject Uni vers glargine 0-23 35-45 ity of (TOUJEO 00:00: Units [place] SOLOSTAR) 00 under the Medic al 300 unit/mL skin every Br anch (1.5 mL) morning. InPn sitaGLIPtin 2016-03 Yes [id number] 100mg Take 1 Univers (JANUVIA) 0-23 tablet by ity o f 100 mg 00:00: mouth [place] tablet 00 daily. Medical Branch metformin 2016-03 Yes [id number] 750mg Take 1 Univers ER 750 mg 0-23 tablet by ity o f 24 hr 00:00: mouth 2 [place] tablet 00 (two) Medical times Branch daily with meals. insulin 2016-03 Yes [id number] 35U inject Uni vers glargine 0-23 35-45 ity of (TOUJEO 00:00: Units [place] SOLOSTAR) 00 under the Medic al 300 unit/mL skin every Br anch (1.5 mL) morning. InPn sitaGLIPtin 2016-03 Yes [id number] 100mg Take 1 Univers (JANUVIA) 0-23 tablet by ity o f 100 mg 00:00: mouth [place] tablet 00 daily. Medical Branch metformin 2016-03 Yes [id number] 750mg Take 1 Univers ER 750 mg 0-23 tablet by ity o f 24 hr 00:00: mouth 2 [place] tablet 00 (two) Medical times Branch daily with meals. insulin 2016-03 Yes [id number] 35U inject Uni vers glargine 0-23 35-45 ity of (TOUJEO 00:00: Units [place] SOLOSTAR) 00 under the Medic al 300 unit/mL skin every Br anch (1.5 mL) morning. InPn sitaGLIPtin 2016-03 Yes [id number] 100mg Take 1 Univers (JANUVIA) 0-23 tablet by ity o f 100 mg 00:00: mouth [place] tablet 00 daily. Medical Branch metformin 2016-03 Yes [id number] 750mg Take 1 Univers ER 750 mg 0-23 tablet by ity o f 24 hr 00:00: mouth 2 [place] tablet 00 (two) Medical times Branch daily with meals. insulin 2016- Yes [id number] 35U inject Uni vers glargine 0-23 35-45 ity of (TOUJEO 00:00: Units [place] SOLOSTAR) 00 under the Medic al 300 unit/mL skin every Br anch (1.5 mL) morning. InPn sitaGLIPtin 2016-03 Yes [id number] 100mg Take 1 Univers (JANUVIA) 0-23 tablet by ity o f 100 mg 00:00: mouth [place] tablet 00 daily. Medical Branch metformin 2016-03 Yes [id number] 750mg Take 1 Univers ER 750 mg 0-23 tablet by ity o f 24 hr 00:00: mouth 2 [place] tablet 00 (two) Medical times Branch daily with meals. insulin 2016-03 Yes [id number] 35U inject Uni vers glargine 0-23 35-45 ity of (TOUJEO 00:00: Units [place] SOLOSTAR) 00 under the Medic al 300 unit/mL skin every Br anch (1.5 mL) morning. InPn sitaGLIPtin 2016-03 Yes [id number] 100mg Take 1 Univers (JANUVIA) 0-23 tablet by ity o f 100 mg 00:00: mouth [place] tablet 00 daily. Medical Branch metformin 2016-03 Yes [id number] 750mg Take 1 Univers ER 750 mg 0-23 tablet by ity o f 24 hr 00:00: mouth 2 [place] tablet 00 (two) Medical times Branch daily with meals. insulin 2016-03 Yes [id number] 35U inject Uni vers glargine 0-23 35-45 ity of (TOUJEO 00:00: Units [place] SOLOSTAR) 00 under the Medic al 300 unit/mL skin every Br anch (1.5 mL) morning. InPn sitaGLIPtin 2016-03 Yes [id number] 100mg Take 1 Univers (JANUVIA) 0-23 tablet by ity o f 100 mg 00:00: mouth [place] tablet 00 daily. Medical Branch metformin 2016-03 Yes [id number] 750mg Take 1 Univers ER 750 mg 0-23 tablet by ity o f 24 hr 00:00: mouth 2 [place] tablet 00 (two) Medical times Branch daily with meals. insulin 2016-03 Yes [id number] 35U inject Uni vers glargine 0-23 35-45 ity of (TOUJEO 00:00: Units [place] SOLOSTAR) 00 under the Medic al 300 unit/mL skin every Br anch (1.5 mL) morning. InPn sitaGLIPtin 2016-03 Yes [id number] 100mg Take 1 Univers (JANUVIA) 0-23 tablet by ity o f 100 mg 00:00: mouth [place] tablet 00 daily. Medical Branch metformin 2016-03 Yes [id number] 750mg Take 1 Univers ER 750 mg 0-23 tablet by ity o f 24 hr 00:00: mouth 2 [place] tablet 00 (two) Medical times Branch daily with meals. insulin 2016-03 Yes [id number] 35U inject Uni vers glargine 0-23 35-45 ity of (TOUJEO 00:00: Units [place] SOLOSTAR) 00 under the Medic al 300 unit/mL skin every Br anch (1.5 mL) morning. InPn sitaGLIPtin 2016-03 Yes [id number] 100mg Take 1 Univers (JANUVIA) 0-23 tablet by ity o f 100 mg 00:00: mouth [place] tablet 00 daily. Medical Branch metformin 2016-03 Yes [id number] 750mg Take 1 Univers ER 750 mg 0-23 tablet by ity o f 24 hr 00:00: mouth 2 [place] tablet 00 (two) Medical times Branch daily with meals. insulin 2016-03 Yes [id number] 35U inject Uni vers glargine 0-23 35-45 ity of (TOUJEO 00:00: Units [place] SOLOSTAR) 00 under the Medic al 300 unit/mL skin every Br anch (1.5 mL) morning. InPn atorvastati 2016-03 Yes [id number] 40mg Take 1 Univers n 40 mg 0-11 tablet by ity of tablet 00:00: mouth at [place] 00 bedtime. Medical Branch blood sugar 2016-03 Yes [id number] Use TID, Univers diagnostic 0-11 DX E11.9 ity o f strip 00:00: ([facility] Branch approval) requesting True Track Strips atorvastati 2016-03 Yes [id number] 40mg Take 1 Univers n 40 mg 0-11 tablet by ity of tablet 00:00: mouth at [place] 00 bedtime. Medical Branch blood sugar 2016-03 Yes [id number] Use TID, Univers diagnostic 0-11 DX E11.9 ity o f strip 00:00: ([facility] approval) requesting True Track Strips atorvastati 2016-03 Yes [id number] 40mg Take 1 Univers n 40 mg 0-11 tablet by ity of tablet 00:00: mouth at [place] 00 bedtime. [facility] Branch blood sugar 2016-03 Yes [id number] Use TID, Univers diagnostic 0-11 DX E11.9 ity o f strip 00:00: ([facility] Branch approval) requesting True Track Strips atorvastati 2016-03 Yes [id number] 40mg Take 1 Univers n 40 mg 0-11 tablet by ity of tablet 00:00: mouth at [place] 00 bedtime. [facility] blood sugar 2016-03 Yes [id number] Use TID, Univers diagnostic 0-11 DX E11.9 ity o f strip 00:00: ([facility] approval) requesting True Track Strips atorvastati 2016-03 Yes [id number] 40mg Take 1 Univers n 40 mg 0-11 tablet by ity of tablet 00:00: mouth at [place] 00 bedtime. [facility] blood sugar 2016-03 Yes [id number] Use TID, Univers diagnostic 0-11 DX E11.9 ity o f strip 00:00: ([facility] approval) requesting True Track Strips atorvastati 2016-03 Yes [id number] 40mg Take 1 Univers n 40 mg 0-11 tablet by ity of tablet 00:00: mouth at [place] 00 bedtime. [facility] blood sugar 2016-03 Yes [id number] Use TID, Univers diagnostic 0-11 DX E11.9 ity o f strip 00:00: ([facility] approval) requesting True Track Strips atorvastati 2016-03 Yes [id number] 40mg Take 1 Univers n 40 mg 0-11 tablet by ity of tablet 00:00: mouth at [place] 00 bedtime. [facility] blood sugar 2016-03 Yes [id number] Use TID, Univers diagnostic 0-11 DX E11.9 ity o f strip 00:00: ([facility] approval) requesting True Track Strips atorvastati 2016-03 Yes [id number] 40mg Take 1 Univers n 40 mg 0-11 tablet by ity of tablet 00:00: mouth at [place] 00 bedtime. [facility] blood sugar 2016-03 Yes [id number] Use TID, Univers diagnostic 0-11 DX E11.9 ity o f strip 00:00: ([facility] approval) requesting True Track Strips atorvastati 2016-03 Yes [id number] 40mg Take 1 Univers n 40 mg 0-11 tablet by ity of tablet 00:00: mouth at [place] 00 bedtime. [facility] blood sugar 2016-03 Yes [id number] Use TID, Univers diagnostic 0-11 DX E11.9 ity o f strip 00:00: ([facility] approval) requesting True Track Strips atorvastati 2016- Yes [id number] 40mg Take 1 Univers n 40 mg 0-11 tablet by ity of tablet 00:00: mouth at [place] 00 bedtime. [facility] blood sugar 2016-03 Yes [id number] Use TID, Univers diagnostic 0-11 DX E11.9 ity o f strip 00:00: ([facility] approval) requesting True Track Strips atorvastati 2016-03 Yes [id number] 40mg Take 1 Univers n 40 mg 0-11 tablet by ity of tablet 00:00: mouth at [place] 00 bedtime. [facility] blood sugar 2016-03 Yes [id number] Use TID, Univers diagnostic 0-11 DX E11.9 ity o f strip 00:00: ([facility] approval) requesting True Track Strips atorvastati 2016-03 Yes [id number] 40mg Take 1 Univers n 40 mg 0-11 tablet by ity of tablet 00:00: mouth at [place] 00 bedtime. [facility] blood sugar 2016-03 Yes [id number] Use TID, Univers diagnostic 0-11 DX E11.9 ity o f strip 00:00: ([facility] approval) requesting True Track Strips atorvastati 2016-03 Yes [id number] 40mg Take 1 Univers n 40 mg 0-11 tablet by ity of tablet 00:00: mouth at [place] 00 bedtime. [facility] blood sugar 2016-03 Yes [id number] Use TID, Univers diagnostic 0-11 DX E11.9 ity o f strip 00:00: ([facility] approval) requesting True Track Strips insulin Yes [id number] Use with Un pricila syringe-nee 5-04 insulin 3 ity of dle U-100 1 00:00: times [place] ml (INSULIN 00 daily Medical SYRINGE) 1 Branch mL 29 x 1/2" Syrg insulin Yes [id number] Use with Un pricila syringe-nee 5-04 insulin 3 ity of dle U-100 1 00:00: times [place] ml (INSULIN 00 daily Medical SYRINGE) 1 Branch mL 29 x 1/2" Syrg insulin Yes [id number] Use with Un pricila syringe-nee 5-04 insulin 3 ity of dle U-100 1 00:00: times [place] ml (INSULIN 00 daily Medical SYRINGE) 1 Branch mL 29 x 1/2" Syrg insulin 2015- Yes [id number] Use with Un pricila syringe-nee 5-04 insulin 3 ity of dle U-100 1 00:00: times [place] ml (INSULIN 00 daily Medical SYRINGE) 1 Branch mL 29 x 1/2" Syrg insulin Yes [id number] Use with Un pricila syringe-nee 5-04 insulin 3 ity of dle U-100 1 00:00: times [place] ml (INSULIN 00 daily Medical SYRINGE) 1 Branch mL 29 x 1/2" Syrg insulin Yes [id number] Use with Un pricila syringe-nee 5-04 insulin 3 ity of dle U-100 1 00:00: times [place] ml (INSULIN 00 daily Medical SYRINGE) 1 Branch mL 29 x 1/2" Syrg insulin Yes [id number] Use with Un pricila syringe-nee 5-04 insulin 3 ity of dle U-100 1 00:00: times [place] ml (INSULIN 00 daily Medical SYRINGE) 1 Branch mL 29 x 1/2" Syrg insulin Yes [id number] Use with Un pricila syringe-nee 5-04 insulin 3 ity of dle U-100 1 00:00: times [place] ml (INSULIN 00 daily Medical SYRINGE) 1 Branch mL 29 x 1/2" Syrg insulin Yes [id number] Use with Un pricila syringe-nee 5-04 insulin 3 ity of dle U-100 1 00:00: times [place] ml (INSULIN 00 daily Medical SYRINGE) 1 Branch mL 29 x 1/2" Syrg insulin Yes [id number] Use with Un pricila syringe-nee 5-04 insulin 3 ity of dle U-100 1 00:00: times [place] ml (INSULIN 00 daily Medical SYRINGE) 1 Branch mL 29 x 1/2" Syrg insulin Yes [id number] Use with Un pricila syringe-nee 5-04 insulin 3 ity of dle U-100 1 00:00: times [place] ml (INSULIN 00 daily Medical SYRINGE) 1 Branch mL 29 x 1/2" Syrg insulin Yes [id number] Use with Un pricila syringe-nee 5-04 insulin 3 ity of dle U-100 1 00:00: times [place] ml (INSULIN 00 daily Medical SYRINGE) 1 Branch mL 29 x 1/2" Syrg insulin 2016-0 Yes [id number] Use with Un pricila syringe-nee 5-04 insulin 3 ity of dle U-100 1 00:00: times [place] ml (INSULIN 00 daily Medical SYRINGE) 1 Branch mL 29 x 1/2" Syrg Insulin 2016-0 Yes Use as Univers [place]att, 3-25 directed ity of Disposable, 00:00: [place] (SURE-FINE 00 Medical PEN Branch NEEDLES) 31 gauge x 3/16" Ndle Insulin 2016-0 Yes Use as Univers [place], 3-25 directed ity of Disposable, 00:00: [place] (SURE-FINE 00 Medical PEN Branch NEEDLES) 31 gauge x 3/16" Ndle Insulin 2016-0 Yes Use as Univers [place], 3-25 directed ity of Disposable, 00:00: [place] (SURE-FINE 00 Medical PEN Branch NEEDLES) 31 gauge x 3/16" Ndle Insulin 2016-0 Yes Use as Univers [place], 3-25 directed ity of Disposable, 00:00: [place] (SURE-FINE 00 Medical PEN Branch NEEDLES) 31 gauge x 3/16" Ndle Insulin 2016-0 Yes Use as Univers [place], 3-25 directed ity of Disposable, 00:00: [place] (SURE-FINE 00 Medical PEN Branch NEEDLES) 31 gauge x 3/16" Ndle Insulin 2016-0 Yes Use as Univers [place], 3-25 directed ity of Disposable, 00:00: [place] (SURE-FINE 00 Medical PEN Branch NEEDLES) 31 gauge x 3/16" Ndle Insulin 2016-0 Yes Use as Univers [place], 3-25 directed ity of Disposable, 00:00: [place] (SURE-FINE 00 Medical PEN Branch NEEDLES) 31 gauge x 3/16" Ndle Insulin 2016-0 Yes Use as Univers Cassatt, 3-25 directed ity of Disposable, 00:00: [place] (SURE-FINE 00 Medical PEN Branch NEEDLES) 31 gauge x 3/16" Ndle Insulin 2016-0 Yes Use as Univers [place], 3-25 directed ity of Disposable, 00:00: [place] (SURE-FINE 00 Medical PEN Branch NEEDLES) 31 gauge x 3/16" Ndle Insulin 2016-0 Yes Use as Univers [place], 3-25 directed ity of Disposable, 00:00: [place] (SURE-FINE 00 Medical PEN Branch NEEDLES) 31 gauge x 3/16" Ndle Insulin 2016-0 Yes Use as Univers [place], 3-25 directed ity of Disposable, 00:00: [place] (SURE-FINE 00 Medical PEN Branch NEEDLES) 31 gauge x 3/16" Ndle Insulin 2016-0 Yes Use as Univers [place], 3-25 directed ity of Disposable, 00:00: [place] (SURE-FINE 00 Medical PEN Branch NEEDLES) 31 gauge x 3/16" Ndle Insulin 2016-0 Yes Use as Univers [place], 3-25 directed ity of Disposable, 00:00: [place] (SURE-FINE 00 Medical PEN Branch NEEDLES) 31 gauge x 3/16" Ndle Vital Signs Vital Name Observation Time Observation Value Comments Source Systolic blood 2020-03-17 21:27:00 137 mm[Hg[facility] Diastolic blood 2020-03-17 21:27:00 94 [facility]Hg[facility] 2020-03-17 21:27:00 105 /min [facility] Body temperature 2020-03-17 21:04:00 36.83 Dorie [facility] Respiratory rate 2020-03-17 21:04:00 16 /min [facility] Body height 2020-03-17 21:04:00 160 cm [facility] Body weight 2020-03-17 21:04:00 65.772 kg [facility] BMI 2020-03-17 21:04:00 25.69 kg/m2 [facility] Procedures Procedure Date / Time Performing Clinician Source Performed GC & CHLAMYDIA AMPLIFIED 2020-03-17 21:16:[facility]P 2020-03-17 21:16:00 AdumMarlena [facility] TRICHOMONAS AMPLIFIED 2020-03-17 [facility]CP 2020-03-17 21:16:00 [facility] 2020-03-17 20:11:55 Doctor Unassigned, [facility] NO SHOW OR MISSED 2020-03-17 20:11:05 Doctor Unassigned, Crys [facility] [place] [facility] APPOINTMENT POLICY [place] [facility] h ACKNOWLEDGEMENT Encounters Start End Encounter Admission Attending Care Care Encounter Source Date/Time Date/Time Type Type Clinicians Facility Department ID 2021-03-18 2021-03-18 Outpatient ADUM, [facility] [id number] [facility] 15:30:00 15:30:00 MARLENA [id number] [facility] 2020-08-13 2020-08-13 Outpatient SEPTIMUS, [facility] [id number] [place] 00:00:00 00:00:00 HENRI 025 Method i 2020-07-23 2020-07-23 Outpatient [facility] [id number] [place] 00:00:00 00:00:00 309 Method i 2020-07-23 2020-07-23 Outpatient SUBHA, [facility] [id number] 053 [place] 00:00:00 00:00:00 JUDY 529 Method i 2020-07-23 2020-07-23 Outpatient SUBHA, [facility] [id number] 053 [place] 00:00:00 00:00:00 JUDY 606 Method i 2020-07-23 2020-07-23 Outpatient SUBHA, [facility] [id number] 053 [place] 00:00:00 00:00:00 JUDY 695 Method i 2020-07-23 2020-07-23 Outpatient SUBHA, [facility] [id number] 053 [place] 00:00:00 00:00:00 JUDY 769 Method i 2020-07-23 2020-07-23 Outpatient SUBHA, [facility] [id number] [place] 00:00:00 00:00:00 JUDY 841 Method i 2020-07-23 2020-07-23 Outpatient SUBHA, [facility] [id number] 053 [place] 00:00:00 00:00:00 JUDY 914 Method i 2020-05-21 2020-05-21 [facility] [id number] Univers 00:00:00 00:00:00 Outreach Maximo PRIMARY [id number] i ty of [facility] [id number] [id number] Wi dical 388 Branch 2020-04-17 2020-04-17 Outpatient SAMEER, [facility] [id number] Univers 10:00:00 10:00:00 WONDIFUL [id number] ity o f [facility] 2020-04-15 2020-04-15 Outpatient R LOVELACE, [facility] [facility] [id number] Univers 10:30:00 10:30:00 WENTONG [id number] ity [facility] 2020-04-15 2020-04-15 Outpatient R LOVELACE, [facility] [id number] Univers 10:30:00 10:30:00 WENTONG ity [facility] 2020-04-03 2020-04-03 Outpatient ADUM, [facility] [id number] Univers 10:00:00 10:00:00 MARLENA [id number] ity [facility] 2020-04-03 2020-04-03 Outpatient R ADUM, [facility] [id number] Univers 10:00:00 10:00:00 MARLENA ity [facility] 2020-04-02 2020-04-02 Outpatient R ADUM, [facility] [id number] Univers 00:00:00 00:00:00 MARLENA [id number] ity [facility] 2020-04-02 2020-04-02 Outpatient R ADUM, [facility] [id number] Univers 00:00:00 00:00:00 MARLENA ity [facility] 2020-03-27 2020-03-27 [facility] [id number] Univers 00:00:00 00:00:00 Marlena Holder [id number] [id number] [phone] Wi dical nal [address] 2020-03-19 2020-03-19 Case Adum, [facility] [id number] Univers 00:00:00 00:00:00 Management Marlena Holder [id number] [id number] [phone] Wi dical nal 134 [facility] 2020-03-18 2020-03-18 Varnish Maker Helper 2, Adc Lab [facility] [id number] Univers 10:17:57 10:32:57 Visit Michelle Santos [id number] [id number] [phone] Wi dical nal 353 [facility] 2020-03-18 2020-03-18 Outpatient [facility] [id number] Univers 10:00:00 10:00:00 [id number] [facility] 2020-03-18 [facility] [id number] Univers 10:00:00 10:00:00 [facility] 2020-03-17 2020-03-17 Office Adum, [facility] [id number] Univers 14:10:59 16:09:53 Visit Marlena Holder [id number] [id number] [phone] Wi dical nal 134 [facility] 2020-03-17 2020-03-17 Outpatient R AD, [facility] [id number] Univers 14:30:00 14:30:00 [facility] [id number] [facility] 2020-[facility] 2020-03-17 Outpatient R ADUM, [facility] [id number] Univers 14:30:00 14:30:00 [facility] 2020-03-17 2020-03-17 Telephone Adum, [facility] [id number] Univers 00:00:00 00:00:00 Marlena Holder [id number] [id number] [phone] Wi dical nal 134 [facility] 2020-03-17 2020-03-17 Orders Doctor GUERRA [id number] Univers 00:00:00 00:00:00 Only Unassigned, SHARLA [id number] [facility] [id number] [place] as [phone] [address] 2020-01-17 2020-01-17 Outpatient R ADUM, [facility] [id number] Univers 14:00:00 14:00:00 MARLENA [id number] ity of [facility] 2020-01-17 2020-01-17 Outpatient R ADUM, [facility] [id number] Univers 14:00:00 14:00:00 MARLENA ity [facility] 2020-01-14 2020-01-14 Outpatient R ADUM, [facility] [id number] Univers 09:00:00 09:00:00 MARLENA ity of [facility] 2019-12-19 2019-12-19 Outpatient R ADUM, [facility] [id number] Univers 15:30:00 15:30:00 MARLENA [id number] ity [facility] 2019-12-19 2019-12-19 Outpatient R ADUM, [facility] [id number] Univers 15:30:00 15:30:00 MARLENA ity [facility] 2019-12-18 2019-12-18 Outpatient R ADUM, [facility] [id number] Univers 15:30:00 15:30:00 MARLENA [id number] ity [facility] 2019-12-18 2019-12-18 Outpatient R ADUM, [facility] [id number] Univers 15:30:00 15:30:00 MARLENA ity [facility] 2019-12-18 2019-12-18 Outpatient R ADUM, [facility] [id number] Univers 15:30:00 15:30:00 [facility] 2019-09-25 2019-09-25 Laboratory Lab, Adc Fam Pob I [facility] [id number] Univers 17:20:00 17:40:00 Only Anene, [facility] [id number] ity of [place] [id number] [place] as Lamonte [phone] [address] 2019-09-25 2019-09-25 Outpatient R [facility] [id number] Univers 17:20:00 17:20:00 [id number] whitney [facility] 2019-09-25 2019-09-25 Outpatient R MARICRUZ, [facility] [id number] Univers 17:20:00 17:20:00 GRACIELA olson [facility] Results Test Description Test Time Test Comments Results Result Comments Source HIGH RISK HPV-THIN PREP 2020-03-19 04:39:00 Test Item Value Reference Range Interpretation Comme nts High Risk HPV (test code = Negative Negative 2637013192) ELI (test code = ELI) A positive [...] data. Lab Interpretation (test code = Normal 39836-5) [facility] [id number] 04:39:00 Test Item Value Reference Range Interpretation Comments High Risk HPV (test Negative Negative code = 0849665071) ELI (test code = ELI) A positive [...] data. Lab Interpretation Normal (test code = 59195-6) [facility] CHLAMYDIA AMPLIFIED [id number] 18:39:00 Test Item Value Reference Range Interpretation Comments C. trachomatis Nucleic Negative Negative Acid (test code = 00073-5) N. gonorrhoeae Nucleic Negative Negative Acid (test code = 98950-2) ELI (test code = ELI) Reliable results [...] clinician. Lab Interpretation Normal (test code = 01513-4) [facility] CHLAMYDIA AMPLIFIED [id number] 18:39:00 Test Item Value Reference Range Interpretation Comments C. trachomatis Nucleic Negative Negative Acid (test code = 90411-7) N. gonorrhoeae Nucleic Negative Negative Acid (test code = 46119-7) ELI (test code = ELI) Reliable results [...] clinician. Lab Interpretation Normal (test code = 45406-1) [facility] AMPLIFIED [id number] 18:29:00 Test Item Value Reference Range Interpretation Comments Trichomonas Nucleic Negative Negative Acid (test code = 83980-7) ELI (test code = ELI) Reliable results [...] clinician. Lab Interpretation Normal (test code = 90486-3) [facility] AMPL[facility]IED [id number] 18:29:00 Test Item Value Reference Range Interpretation Comments Trichomonas Nucleic Negative Negative Acid (test code = 57789-7) ELI (test code = ELI) Reliable results [...] clinician. Lab Interpretation Normal (test code = 30752-7) [facility]
[2021-08-05] MEDS ORDERED: INSULIN -REGULAR HUMAN 50 UNIT/0.5 ML ML ONE (17:16)
[2021-08-05] MEDS ORDERED: NA CHLORIDE 0.9% 2,000 ML ONE (17:16)
[2021-08-05 17:26] LABS: Absolute Lymphocytes (CBC) 2.8 K/uL (0.7-4.9); Hematocrit 38.6 % (36.0-45.0); Lymphocytes % 42.1 % (15.3-44.8); MPV 6.7 fL (7.6-11.3)
[2021-08-05 17:29] LABS: Protime INR 1.08
--- NOTE | 2021-08-05 17:45 | RAD REPORT ---
EXAM DESCRIPTION: Melia Single View08/05/2021 5:39 pm CLINICAL HISTORY: Cough COMPARISON: none FINDINGS: The lungs appear clear of acute infiltrate. The heart is normal size IMPRESSION: No acute abnormalities displayed
[2021-08-05] MEDS ORDERED: INSULIN GLARGINE 100 UNIT/ML SQ ONE (18:00)
[2021-08-05 18:01] LABS: ALT/SGPT 24 U/L (12-78); AST/SGOT 13 U/L (15-37); Albumin 2.7 g/dL (3.4-5.0); Alkaline Phosphatase 152 U/L (45-117); BUN Blood Urea Nitrogen 10 mg/dL (7-18); Bicarbonate 25 mmol/L (21-32); Bilirubin Total 0.2 mg/dL (0.2-1.0); Glomerular Filtration Rate 100 ml/min (=/>90); Lipase 98 U/L (73-393); NT PRO-BNP 18 pg/mL (<125); Potassium 4.1 mmol/L (3.5-5.1); Sodium Level 134 mmol/L (136-145); Troponin High Sensitivity 4.5 pg/mL (<58.9)
[2021-08-05] MEDS ORDERED: METFORMIN HCL 500 MG TAB ONE (18:01)
[2021-08-05 18:15] LABS: Bilirubin Direct < 0.1 mg/dL (0-0.2); Glucose Level 439 mg/dL (74-106)
--- NOTE | 2021-08-05 18:22 | ER ---
Nurse's Notes [facility] Name: Starla Rojas Age: 51 yrs Sex: Female : 1970 Arrival Date: 08/05/2021 Time: 16:41 Bed 7 Private MD: Diagnosis: Type 2 diabetes mellitus with hyperglycemia;Essential (primary) hypertension;Acute serous otitis media, right ear Presentation: 08/05 16:51 Chief complaint: Patient states: i went to my doctor at the [facility] and it read tw2 high this afternoon and they gave me a total of 25 units of insulin. and it was still reading high, so they told me to come here to have it checked and get some fluids. i havent checked it since i left there. and also about a week my RIGHT ear has been bothering me. Coronavirus screen: At this time, the client does not indicate any symptoms associated with coronavirus-19. Ebola Screen: Patient denies travel to an Ebola-affected area in the 21 days before illness onset. Initial Sepsis Screen: Does the patient meet any 2 criteria? HR > 90 bpm. No. Patient's initial sepsis screen is negative. Does the patient have a suspected source of infection? No. Patient's initial sepsis screen is negative. Risk Assessment: Do you want to hurt yourself or someone else? Patient reports no desire to harm self or others. Onset of symptoms was August 05, 2021. 16:51 Method Of Arrival: Ambulatory tw2 16:51 Acuity: BRUNO 3 tw2 Triage Assessment: 16:53 General: Appears in no apparent distress. slender, well groomed, Behavior is calm, tw2 cooperative, appropriate for age. Pain: Complains of pain in right ear. EENT: Reports nasal congestion. Neuro: dizziness. 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 - Social history:: Smoking status: Patient denies any tobacco usage or history of. Screenin:55 Abuse screen: Denies threats or abuse. Nutritional screening: No deficits noted. tw2 Tuberculosis screening: No symptoms or risk factors identified. Fall Risk None identified. Assessment: 17:00 General: SEE TRIAGE NOTE. bp 19:00 Reassessment: PT GIVEN PO INTAKE. D/C HOME AMBULATORY, DX WITH OTITIS MEDIA AND bp HYPERGLYCEMIA. Vital Signs: 16:51 BP 109 / 72; Pulse 112; Resp 18; Temp 98.1(TE); Pulse Ox 100% on R/A; Weight 63.5 kg; tw2 Height 5 ft. 3 in. (160.02 cm); Pain 7/10; 18:00 BP 122 / 60; Pulse 87; Resp 20; Pulse Ox 98% ; bp 19:00 BP 135 / 87; Pulse 88; Resp 19; Pulse Ox 100% ; bp 16:51 Body Mass Index 24.80 (63.50 kg, 160.02 cm) tw2 ED Course: 16:41 Patient arrived in ED. as 16:53 Triage completed. tw2 16:55 Arm band placed on. tw2 16:55 Bed in low position. Call light in reach. tw2 16:56 Domo Shepherd MD is Attending Physician. mitch 16:58 William King, FAY is Primary Nurse. bp 17:21 Inserted saline lock: 20 gauge in right antecubital area, using aseptic technique. loyd 17:41 XRAY Chest (1 view) In Process Unspecified. EDMS 18:22 Chela Browning MD is Referral Physician. mitch 19:00 No provider procedures requiring assistance completed. IV discontinued, intact, bp bleeding controlled, No redness/swelling at site. Pressure dressing applied. Administered Medications: 17:17 Drug: NS 0.9% 1000 ml Route: IV; Rate: 1 bolus; Site: right antecubital; loyd 18:39 Follow up: IV Status: Completed infusion; IV Intake: 1000ml bp 17:17 Drug: NS 0.9% 1000 ml Route: IV; Rate: 1 bolus; Site: right antecubital; loyd 18:39 Follow up: IV Status: Completed infusion; IV Intake: 1000ml bp 17:32 Drug: Insulin Regular Human 10 units {Co-Signature: bp (William King RN).} Route: IVP; loyd Site: right antecubital; 17:35 Follow up: Response: No adverse reaction loyd 18:02 Drug: Semglee 100 unit/mL 30 units Route: Sub-Q; Site: abdomen; bp 18:24 Follow up: Response: No adverse reaction bp 18:02 Drug: metFORMIN 500 mg Route: PO; bp 18:25 Follow up: Response: No adverse reaction bp 18:10 Drug: Rocephin (cefTRIAXone) 1 grams Route: IV; Rate: per protocol; Site: right bp antecubital; 18:39 Follow up: IV Status: Completed infusion; IV Intake: 100ml bp Medication: 17:00 VIS not applicable for this client. bp Intake: 18:39 IV: 1000ml; Total: 1000ml. bp 18:39 IV: 1000ml; Total: 2000ml. bp 18:39 IV: 100ml; Total: 2100ml. bp Outcome: 18:22 Discharge ordered by . mitch 19:00 Discharged to home ambulatory. bp 19:00 Condition: stable 19:00 Discharge instructions given to patient, Instructed on discharge instructions, follow up and referral plans. medication usage, Demonstrated understanding of instructions, follow-up care, medications, Prescriptions given X 3. 19:01 Patient left the ED. bp Signatures: Dispatcher [employer] EDMS Domo Shepherd MD MD cha Martinez, Amelia as Wise, Tara RN FAY tw2 William King, RN RN bp Au-StagerPhyllis RN RN loyd William King RN bp Corrections: (The following items were deleted from the chart) 16:58 16:51 Chief complaint: Patient states: i went to my doctor at the [facility] and it tw2 read high this afternoon and they gave me units of insulin. i havent checked it since i left there and it is still reading high. and also about a week my RIGHT ear has been bothering me tw2
--- NOTE | 2021-08-05 18:22 | EDPHYS ---
Physician Documentation [facility] Name: Starla Rojas Age: 51 yrs Sex: Female : 1970 Arrival Date: 08/05/2021 Time: 16:41 Bed 7 Private MD: ED Physician Domo Shepherd HPI: 08/05 17:45 This 51 yrs old Black Female presents to ER via Ambulatory with complaints of High mitch Blood Sugar - >500, Ear Pain. 17:45 The patient or guardian reports hyperglycemia, that was potentially precipitated by no mitch particular event. Onset: The symptoms/episode began/occurred 3 day(s) ago. Associated signs and symptoms: Pertinent positives: None. Pertinent negatives: None. Current symptoms: In the emergency department the patient's symptoms are unchanged from the initial presentation. The patient has experienced similar episodes in the past, multiple times. 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 - Social history:: Smoking status: Patient denies any tobacco usage or history of. ROS: 17:49 Constitutional: Negative for fever, chills, and weight loss, Eyes: Negative for injury, mitch pain, redness, and discharge, ENT: Negative for injury, pain, and discharge, Neck: Negative for injury, pain, and swelling, Cardiovascular: Negative for chest pain, palpitations, and edema, Respiratory: Negative for shortness of breath, cough, wheezing, and pleuritic chest pain, Abdomen/GI: Negative for abdominal pain, nausea, vomiting, diarrhea, and constipation, Back: Negative for injury and pain, : Negative for injury, bleeding, discharge, and swelling, MS/Extremity: Negative for injury and deformity, Skin: Negative for injury, rash, and discoloration, Neuro: Negative for headache, weakness, numbness, tingling, and seizure, Psych: Negative for depression, anxiety, suicide ideation, homicidal ideation, and hallucinations, Allergy/Immunology: Negative for hives, rash, and allergies, Hematologic/Lymphatic: Negative for swollen nodes, abnormal bleeding, and unusual bruising. 17:49 Endocrine: Positive for weight loss. Exam: 17:49 Constitutional: This is a well developed, well nourished patient who is awake, alert, mitch and in no acute distress. Head/Face: Normocephalic, atraumatic. Eyes: Pupils equal round and reactive to light, extra-ocular motions intact. Lids and lashes normal. Conjunctiva and sclera are non-icteric and not injected. Cornea within normal limits. Periorbital areas with no swelling, redness, or edema. ENT: Nares patent. No nasal discharge, no septal abnormalities noted. Tympanic membranes are normal and external auditory canals are clear. Oropharynx with no redness, swelling, or masses, exudates, or evidence of obstruction, uvula midline. Mucous membranes moist. Neck: Trachea midline, no thyromegaly or masses palpated, and no cervical lymphadenopathy. Supple, full range of motion without nuchal rigidity, or vertebral point tenderness. No Meningismus. Chest/axilla: Normal chest wall appearance and motion. Nontender with no deformity. No lesions are appreciated. Respiratory: Lungs have equal breath sounds bilaterally, clear to auscultation and percussion. No rales, rhonchi or wheezes noted. No increased work of breathing, no retractions or nasal flaring. Abdomen/GI: Soft, non-tender, with normal bowel sounds. No distension or tympany. No guarding or rebound. No evidence of tenderness throughout. Back: No spinal tenderness. No costovertebral tenderness. Full range of motion. Skin: Warm, dry with normal turgor. Normal color with no rashes, no lesions, and no evidence of cellulitis. MS/ Extremity: Pulses equal, no cyanosis. Neurovascular intact. Full, normal range of motion. Neuro: Awake and alert, GCS 15, oriented to person, place, time, and situation. Cranial nerves II-XII grossly intact. Motor strength 5/5 in all extremities. Sensory grossly intact. Cerebellar exam normal. Normal gait. Psych: Awake, alert, with orientation to person, place and time. Behavior, mood, and affect are within normal limits. 17:49 Cardiovascular: Rate: tachycardic, actual rate is 112 bpm, Rhythm: regular, Pulses: Pulses are 4+ in bilateral radial, brachial, femoral, popliteal, posterior tibial and and dorsalis pedis arteries.. Edema: is not appreciated, JVD: is not appreciated. 17:49 ECG was reviewed by the Attending Physician. Vital Signs: 16:51 BP 109 / 72; Pulse 112; Resp 18; Temp 98.1(TE); Pulse Ox 100% on R/A; Weight 63.5 kg; tw2 Height 5 ft. 3 in. (160.02 cm); Pain 7/10; 18:00 BP 122 / 60; Pulse 87; Resp 20; Pulse Ox 98% ; bp 19:00 BP 135 / 87; Pulse 88; Resp 19; Pulse Ox 100% ; bp 16:51 Body Mass Index 24.80 (63.50 kg, 160.02 cm) tw2 MDM: 16:56 Patient medically screened. [facility] 17:51 Differential diagnosis: DKA, hyperglycemia. Data reviewed: vital signs, nurses notes, [facility] lab test result(s), EKG, radiologic studies, plain films. Data interpreted: ekg monitor tech: rate is 112 beats/min, rhythm is regular, Pulse oximetry: on room air. Test interpretation: by ED physician or midlevel provider: ECG, plain radiologic studies. Counseling: I had a detailed discussion with the patient and/or guardian regarding: the historical points, exam findings, and any diagnostic results supporting the discharge/admit diagnosis, lab results, radiology results, the need for outpatient follow up, for definitive care, a family practitioner. 18:53 ED course: pt has script for metformin and sq insulin, will hand picker tomorrow. [facility] 08/05 17:00 Order name: Basic Metabolic Panel; Complete Time: 18:22 [facility] 08/05 17:00 Order name: CBC with Diff; Complete Time: 17:38 [facility] 08/05 17:00 Order name: LFT's; Complete Time: 18:22 [facility] 08/05 17:00 Order name: Magnesium; Complete Time: 18:22 [facility] 08/05 17:00 Order name: NT PRO-BNP; Complete Time: 18:22 [facility] 08/05 17:00 Order name: PT-INR; Complete Time: 17:38 [facility] 08/05 17:00 Order name: Troponin HS; Complete Time: 18:22 [facility] 08/05 17:00 Order name: XRAY Chest (1 view); Complete Time: 17:52 [facility] 08/05 17:00 Order name: Lipase; Complete Time: 18:22 [facility] 08/05 17:12 Order name: Glucose, Ancillary Testing; Complete Time: 17:38 EDMS 08/05 18:52 Order name: Glucose, Ancillary Testing EDPR 08/05 17:00 Order name: EKG; Complete Time: 17:01 [facility] 08/05 17:00 Order name: Cardiac monitoring; Complete Time: 17:18 [facility] 08/05 17:00 Order name: EKG - Nurse/Tech; Complete Time: 18:02 [facility] 08/05 17:00 Order name: IV Saline Lock; Complete Time: 17:17 [facility] 08/05 17:00 Order name: Labs collected and sent; Complete Time: 17:17 [facility] 08/05 17:00 Order name: O2 Per Protocol; Complete Time: 17:17 [facility] 08/05 17:00 Order name: O2 Sat Monitoring; Complete Time: 17:17 [facility] 08/05 18:25 Order name: Blood Glucose Level; Complete Time: 18:59 [facility] 08/05 18:44 Order name: Diet Heart Healthy; Complete Time: 18:45 [facility] EC:49 Rate is 97 beats/min. Rhythm is regular. QRS Timber is Normal. NM interval is normal. QRS mitch interval is normal. QT interval is normal. No Q waves. T waves are Normal. No ST changes noted. Clinical impression: LVH and No evidence of ischemia. Interpreted by me. Reviewed by me. Administered Medications: 17:17 Drug: NS 0.9% 1000 ml Route: IV; Rate: 1 bolus; Site: right antecubital; loyd 18:39 Follow up: IV Status: Completed infusion; IV Intake: 1000ml bp 17:17 Drug: NS 0.9% 1000 ml Route: IV; Rate: 1 bolus; Site: right antecubital; loyd 18:39 Follow up: IV Status: Completed infusion; IV Intake: 1000ml bp 17:32 Drug: Insulin Regular Human 10 units {Co-Signature: bp (William King RN).} Route: IVP; loyd Site: right antecubital; 17:35 Follow up: Response: No adverse reaction loyd 18:02 Drug: Semglee 100 unit/mL 30 units Route: Sub-Q; Site: abdomen; bp 18:24 Follow up: Response: No adverse reaction bp 18:02 Drug: metFORMIN 500 mg Route: PO; bp 18:25 Follow up: Response: No adverse reaction bp 18:10 Drug: Rocephin (cefTRIAXone) 1 grams Route: IV; Rate: per protocol; Site: right bp antecubital; 18:39 Follow up: IV Status: Completed infusion; IV Intake: 100ml bp Disposition Summary: 08/05/21 18:22 Discharge Ordered Location: Home mitch Problem: new mitch Symptoms: have improved mitch Condition: Stable mitch Diagnosis - Type 2 diabetes mellitus with hyperglycemia mitch - Essential (primary) hypertension mitch - Acute serous otitis media, right ear mitch Followup: mitch - With: Private Physician - When: 2 - 3 days - Reason: Recheck today's complaints, Continuance of care, Re-evaluation by your physician Followup: mitch - With: Chela Browning MD - When: 5 - 6 days - Reason: Recheck today's complaints, Re-evaluation by your physician Discharge Instructions: - Discharge Summary Sheet mitch - Otitis Media, Adult mitch - Hyperglycemia mitch - Hypertension, Adult mitch - Hypertension, Adult, [id number] mitch - Blood Glucose Monitoring, Adult mitch - Diabetes Mellitus and Exercise mitch - Diabetes Mellitus and Nutrition, Adult mitch - Aspirin and Your Heart mitch - Managing Your Hypertension mitch Forms: - Medication Reconciliation Form mitch - Thank You Letter mitch - Antibiotic Education mitch - Prescription Opioid Use [facility] - Work release form bd Prescriptions: - Lisinopril 10 mg Oral Tablet - take 1 tablet by ORAL route once daily; 20 tablet; Refills: 0, Product mitch Selection Permitted - Augmentin 875-125 mg Oral Tablet - take 1 tablet by ORAL route every 12 hours for 10 days; 14 tablet; Refills: 0, [facility] Product Selection Permitted - Diane-D 12 Hour 60-120 mg Oral Tablet Sustained Release 12 hr - take 1 tablet by ORAL route every 12 hours As needed; 20 tablet; Refills: 0, [facility] Product Selection Permitted - Metformin 500 mg Oral Tablet - take 1 tablet by ORAL route once daily for 21 days Then take 1 tablet with [facility] morning meals AND evening meals; 21 tablet; Refills: 0, Product Selection Permitted Signatures: Dispatcher [employer] Domo Chao MD MD cha Wise, Tara, RN RN tw2 William King RN RN bp Phyllis Peñaloza RN RN loyd William King RN bp
[2021-08-05] MEDS ORDERED: CEFTRIAXONE 1000 MG/VIAL ONE (18:27)
[2021-08-05 19:32] VITALS: TEMP 98.1
[2021-08-05 19:35] VITALS: BP 135/87; O2SAT 100
--- NOTE | 2021-08-07 14:32 | EKG ---
Test Date: 2021-08-05 Test Time: 17:19:45 Tax Staff Accountant: KAI MEASUREMENT RESULTS: Intervals: Rate: 97 MN: 184 QRSD: 78 QT: 376 QTc: 477 Jackson: P: 26 MN: 184 QRS: -16 T: 37 INTERPRETIVE STATEMENTS: Normal sinus rhythm Moderate voltage criteria for LVH, may be normal variant Possible Lateral infarct, age undetermined Abnormal ECG Compared to ECG 09/22/1999 15:08:00 Left ventricular hypertrophy now present Myocardial infarct finding now present Sinus arrhythmia no longer present Electronically Signed On 08-07-21 14:31:47 CDT by Randy Cortés
== END 2021-08-05 19:01 | disposition home or self-care (01) ==
LOC: ER 16:40
DX: E11.65 Type 2 diabetes mellitus with hyperglycemia (principal); H65.01 Acute serous otitis media, right ear; I10 Essential (primary) hypertension; Z88.5 Allergy status to narcotic agent
CPT/HCPCS: 36415; 71045; 80048; 80076; 82947; 83690; 83735; 83880; 84484; 85025; 85610; 93005; 96361; 96365; 96372; 96375; 99284; J1815; J7030

== ENCOUNTER 2021-12-21 12:46 | Emergency (ER) | payer SELFPAY ==
--- OUTSIDE RECORDS SUMMARY | 2021-12-21 12:49 | XMS REPORT | Continuity of Care Document ---
:1970 Author Organization [facility] t Address [address] [place] [address] Care Team Providers Name Role Phone Pcp, Patient Does Not Have A Primary Care Physician +[id number] Doctor Unassigned, [place] Attending Clinician Unavailable Loida Headley Attending Clinician HENRI STRINGER Attending Clinician Unavailable JUDY MASCORRO Attending Clinician Unavailable Maximo Nichole DO Attending Clinician ORTIZ LOVELACE Attending Clinician Unavailable MARLENA PASCAL Attending Clinician Unavailable Marlena Pascal MD Attending Clinician 2, [facility] Attending Clinician Unavailable Michelle Gutiérrez MD Attending Clinician MICHELLE GUTIÉRREZ Attending Clinician Unavailable Lab, [facility] Fam Pob I Attending Clinician Unavailable Graciela Jacinto Attending Clinician GRACIELA ALCANTARA Attending Clinician Unavailable Payers Payer Name Policy Type Policy Number Effective Date Expiration Date Royal [employer] [id number] 2016 2019 [facility] 00:00:00 00:00:00 Problems Condition Condition Condition Status Onset Resolution Last Treating Co mments Source Name Details Category Date Date Treatment Clinician Date HTN HTN Disease Active [facility] (hypertens (hypertens 7-05 it y of ion) ion) 00:00: [place] [address] Medical Branch Chest pain Chest pain Disease Active U nivers 7-30 ity of 00:00: [address] Branch Metabolic Metabolic Disease Active Uni vers syndrome X syndrome X 5-04 it y of 00:00: [place] [facility] 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 5-04 ity of diabetes diabetes 00:00: [place] with with 00 Medical neuropathy neuropathy Br anch Type 2 Type 2 Disease Active Univers diabetes diabetes 3-20 ity of mellitus mellitus 00:00: [place] with with 00 Medical diabetic diabetic Branch polyneurop polyneurop athy athy Abscess of Abscess of Disease Active U nivers thumb, thumb, 3-20 ity of right right 00:00: [place] [facility] Thumb Thumb Disease Active [facility] pain, pain, 3-20 ity of right right 00:00: [place] [facility] Candidiasi Candidiasi Disease Active U nivers s of vulva s of vulva 3-20 it y of and vagina and vagina 00:00[place] [facility] Candidiasi Candidiasi Disease Active U nivers s s 3-20 ity of 00:00: [place] [facility] Type 2 Type 2 Disease Active Univers diabetes diabetes 3-20 ity of mellitus mellitus 00:00: [place] with with Medical diabetic diabetic Branch polyneurop polyneurop athy athy Yeast Yeast Disease Active Univers vaginitis vaginitis 3-20 ity of 00:00: [place] [facility] Esophageal Esophageal Disease Active U nivers reflux reflux 6-18 ity of 00:00: [place] [facility] Benign Benign Disease Active Univers hypertensi hypertensi 6-18 it y of ve heart ve heart 00:00: [place] disease disease 00 Medical without without Branch heart heart failure failure HLD HLD Disease Active Univers (hyperlipi (hyperlipi 6-18 it y of demia) demia) 00:00: [place] [facility] DM type 2 DM type 2 Disease Active Uni vers (diabetes (diabetes 6-18 ity of mellitus, mellitus, [place] type [place] type 2[place] 00 [facility] Peripheral Peripheral Disease Active U nivers neuropathy neuropathy 6-18 it y of 00:00: [place] [facility] No known No known Disease Metho di active active st problems problems Hospit [facility] l Allergies, Adverse Reactions, Alerts Allergy Allergy Status [...] Quantity Comments Source Exposure to Not sure [facility] SARS-CoV-2 [facility] (event) [place] Alcohol intake 2020-03-17 2020-03-17 Current University of 00:00:00 00:00:00 non-drinker of [facility] alcohol (finding) Branch Tobacco use and 2015-10-03 2015-10-03 Smokeless tobacco Un iversity of exposure 00:00:00 00:00:00 non-user [facility] Sex Assigned At [address] [facility] 00:00:00 00:00:00 Smoking Status Start Date Stop Date Source Tobacco smoking consumption [facility] unknown Never smoked tobacco [facility] Medications Ordered Filled Start Stop Current Ordering Indication Dosage Frequency Signature Comments Components Source Medication Medication Date Date Medication? Clinician (SIG) Name Name No known No No known Metho di medications 5-[address] [facility] No known No No known Metho di medications 5-[address] [facility] fluconazole Yes Take one Un pricila 150 mg 1-14 tablet by ity of tablet 00:00: mouth 72 [place] 00 hours Medical after Branch first dose as instructed by provider fluconazole Yes Take one Un pricila 150 mg 1-14 tablet by ity of tablet 00:00: mouth 72 [place] 00 hours Medical after Branch first dose as instructed by provider metroNIDAZO Yes [id number] 500mg Take 1 Univers LE 500 mg 1-14 tablet by ity o f tablet 00:00: mouth [place] 00 every 12 Medical (twelve) Branch hours. fluconazole Yes Take one Un pricila 150 mg 1-14 tablet by ity of tablet 00:00: mouth 72 [place] 00 hours Medical after Branch first dose as instructed by provider metroNIDAZO Yes [id number] 500mg Take 1 Univers LE 500 mg 1-14 tablet by ity o f tablet 00:00: mouth [place] 00 every 12 Medical (twelve) Branch hours. fluconazole Yes Take one Un pricila 150 mg 1-14 tablet by ity of tablet 00:00: mouth 72 [place] 00 hours Medical after Branch first dose as instructed by provider metroNIDAZO Yes [id number] 500mg Take 1 Univers LE 500 mg 1-14 tablet by ity o f tablet 00:00: mouth [place] 00 every 12 Medical (twelve) Branch hours. fluconazole Yes Take one Un pricila 150 mg 1-14 tablet by ity of tablet 00:00: mouth 72 [place] 00 hours Medical after Branch first dose as instructed by provider metroNIDAZO Yes [id number] 500mg Take 1 Univers LE 500 mg 1-14 tablet by ity o f tablet 00:00: mouth [place] 00 every 12 Medical (twelve) Branch hours. nystatin-tr 2020- No [id number] Apply to [facility] 03-17 area(s) 2 it y of cream 00:00: 05:59 (two) [place] 00 :00 times Medical daily for Branch 14 days. nystatin-tr 2020- No [id number] Apply to [facility] 03-17 area(s) 2 it y of cream 00:00: 05:59 (two) [place] 00 :00 times Medical daily for Branch 14 days. nystatin-tr 2020- No [id number] [facility] area[facility]s) 2 it y of cream 00:00: 05:59 (two) [place] 00 :00 times Medical daily for Branch 14 days. nystatin-tr 2020-2020- [facility] [id number] [facility] it y of cream 00:00: 05:59 (two) [place] 00 :00 times Medical daily for Branch 14 days. nystatin-tr 2020-2020- No [id number] Apply to [facility] 03-17 area(s) 2 it y of cream 00:00: 05:59 (two) [place] 00 :00 times Medical daily for Branch 14 days. nystatin-tr 2020- No [id number] Apply to [facility] 03-17 area(s) 2 it y of cream 00:00: 05:59 (two) [place] 00 :00 times Medical daily for Branch 14 days. nystatin-tr 2020- No [id number] Apply to [facility] 03-17 area(s) 2 it y of cream 00:00: 05:59 (two) [place] 00 :00 times Medical daily for Branch 14 days. nystatin-tr 2020- No [id number] Apply to [facility] 03-17 area(s) 2 it y of cream 00:00: 05:59 (two) [place] 00 :00 times Medical daily for Branch 14 days. fluconazole 2020- No [id number] 150mg Take 1 Univers 150 mg 03-17 tablet by ity of tablet 00:00: 05:59 mouth [place] 00 :[place] now for 1 Medical dose. Take Branch one tablet now and the second tablet in 72 hours fluconazole 2020- No [id number] 150mg Take 1 [facility] 150 mg 03-17 tablet by ity of tablet 00:00: 05:59 mouth [place] 00 :[place] now for 1 Medical dose. Take Branch one tablet now and the second tablet in 72 hours fluconazole 2020- No [id number] 150mg Take 1 [facility] 150 mg 03-17 tablet by ity of tablet 00:00: 05:59 mouth [place] 00 :[place] now for 1 Medical dose. Take Branch one tablet now and the second tablet in 72 hours fluconazole 2020- No [id number] 150mg Take 1 [facility] 150 mg 03-17 tablet by ity of tablet 00:00: 05:59 mouth [place] 00 :[place] now for 1 Medical dose. Take Branch one tablet now and the second tablet in 72 hours sitaGLIPtin 2016-03 Yes [id number] 100mg Take 1 Univers (JANUVIA) 0-23 tablet by ity o f 100 mg 00:00: mouth [place] tablet 00 daily. Medical Branch metformin 2016-03 Yes [id number] 750mg Take 1 Univers ER 750 mg 0-23 tablet by ity o f 24 hr 00:00: mouth 2 [place] tablet 00 (two) Medical times Branch daily with meals. insulin 2016-03 Yes [id number] 35U inject Uni vers glargine 0-23 35-45 ity of (TOUJEO 00:00: Units [place] SOLOSTAR) 00 under the Medic al 300 unit/mL skin every Br anch (1.5 mL) morning. InPn sitaGLIPtin 2016-03 Yes [id number] 100mg Take 1 Univers (JANUVIA) 0-23 tablet by ity o f 100 mg 00:00: mouth [place] tablet 00 daily. Medical Branch metformin 2016-03 Yes [id number] 750mg Take 1 Univers ER 750 mg 0-23 tablet by ity o f 24 hr 00:00: mouth 2 [place] tablet 00 (two) Medical times Branch daily with meals. insulin 2016-03 Yes [id number] 35U inject Uni vers glargine 0-23 35-45 ity of (TOUJEO 00:00: Units [place] SOLOSTAR) 00 under the Medic al 300 unit/mL skin every Br anch (1.5 mL) morning. InPn sitaGLIPtin 2016-03 Yes [id number] 100mg Take 1 Univers (JANUVIA) 0-23 tablet by ity o f 100 mg 00:00: mouth [place] tablet 00 daily. Medical Branch metformin 2016-03 Yes [id number] 750mg Take 1 Univers ER 750 mg 0-23 tablet by ity o f 24 hr 00:00: mouth 2 [place] tablet 00 (two) Medical times Branch daily with meals. insulin 2016-03 Yes [id number] 35U inject Uni vers glargine 0-23 35-45 ity of (TOUJEO 00:00: Units [place] SOLOSTAR) 00 under the Medic al 300 unit/mL skin every Br anch (1.5 mL) morning. InPn sitaGLIPtin 2016-03 Yes [id number] 100mg Take 1 Univers (JANUVIA) 0-23 tablet by ity o f 100 mg 00:00: mouth [place] tablet 00 daily. Medical Branch metformin 2016-03 Yes [id number] 750mg Take 1 Univers ER 750 mg 0-23 tablet by ity o f 24 hr 00:00: mouth 2 [place] tablet 00 (two) Medical times Branch daily with meals. insulin 2016-03 Yes [id number] 35U inject Uni vers glargine 0-23 35-45 ity of (TOUJEO 00:00: Units [place] SOLOSTAR) 00 under the Medic al 300 unit/mL skin every Br anch (1.5 mL) morning. InPn sitaGLIPtin 2016-03 Yes [id number] 100mg Take 1 Univers (JANUVIA) 0-23 tablet by ity o f 100 mg 00:00: mouth [place] tablet 00 daily. Medical Branch metformin 2016-03 Yes [id number] 750mg Take 1 Univers ER 750 mg 0-23 tablet by ity o f 24 hr 00:00: mouth 2 [place] tablet 00 (two) Medical times Branch daily with meals. insulin 2016-03 Yes [id number] 35U inject Uni vers glargine 0-23 35-45 ity of (TOUJEO 00:00: Units [place] SOLOSTAR) 00 under the Medic al 300 unit/mL skin every Br anch (1.5 mL) morning. InPn sitaGLIPtin 2016-03 Yes [id number] 100mg Take 1 Univers (JANUVIA) 0-23 tablet by ity o f 100 mg 00:00: mouth [place] tablet 00 daily. Medical Branch metformin 2016-03 Yes [id number] 750mg Take 1 Univers ER 750 mg 0-23 tablet by ity o f 24 hr 00:00: mouth 2 [place] tablet 00 (two) Medical times Branch daily with meals. insulin 2016-03 Yes [id number] 35U inject Uni vers glargine 0-23 35-45 ity of (TOUJEO 00:00: Units [place] SOLOSTAR) 00 under the Medic al 300 unit/mL skin every Br anch (1.5 mL) morning. InPn sitaGLIPtin 2016-03 Yes [id number] 100mg Take 1 Univers (JANUVIA) 0-23 tablet by ity o f 100 mg 00:00: mouth [place] tablet 00 daily. Medical Branch metformin 2016-03 Yes [id number] 750mg Take 1 Univers ER 750 mg 0-23 tablet by ity o f 24 hr 00:00: mouth 2 [place] tablet 00 (two) Medical times Branch daily with meals. insulin 2016- Yes [id number] 35U inject Uni vers glargine 0-23 35-45 ity of (TOUJEO 00:00: Units [place] SOLOSTAR) 00 under the Medic al 300 unit/mL skin every Br anch (1.5 mL) morning. InPn sitaGLIPtin 2016-03 Yes [id number] 100mg Take 1 Univers (JANUVIA) 0-23 tablet by ity o f 100 mg 00:00: mouth [place] tablet 00 daily. Medical Branch metformin 2016- Yes [id number] 750mg Take 1 Univers ER 750 mg 0-23 tablet by ity o f 24 hr 00:00: mouth 2 [place] tablet 00 (two) Medical times Branch daily with meals. insulin 2016- Yes [id number] 35U inject Uni vers glargine 0-23 35-45 ity of (TOUJEO 00:00: Units [place] SOLOSTAR) 00 under the Medic al 300 unit/mL skin every Br anch (1.5 mL) morning. InPn sitaGLIPtin 2016-03 Yes [id number] 100mg Take 1 Univers (JANUVIA) 0-23 tablet by ity o f 100 mg 00:00: mouth [place] tablet 00 daily. Medical Branch metformin 2016- Yes [id number] 750mg Take 1 Univers ER 750 mg 0-23 tablet by ity o f 24 hr 00:00: mouth 2 [place] tablet 00 (two) Medical times Branch daily with meals. insulin 2016- Yes [id number] 35U inject Uni vers glargine 0-23 35-45 ity of (TOUJEO 00:00: Units [place] SOLOSTAR) 00 under the Medic al 300 unit/mL skin every Br anch (1.5 mL) morning. InPn sitaGLIPtin 2016-03 Yes [id number] 100mg Take 1 Univers (JANUVIA) 0-23 tablet by ity o f 100 mg 00:00: mouth [place] tablet 00 daily. Medical Branch metformin 2016- Yes [id number] 750mg Take 1 Univers ER 750 mg 0-23 tablet by ity o f 24 hr 00:00: mouth 2 [place] tablet 00 (two) Medical times Branch daily with meals. insulin 2016- Yes [id number] 35U inject Uni vers glargine 0-23 35-45 ity of (TOUJEO 00:00: Units [place] SOLOSTAR) 00 under the Medic al 300 unit/mL skin every Br anch (1.5 mL) morning. InPn sitaGLIPtin 2016-03 Yes [id number] 100mg Take 1 Univers (JANUVIA) 0-23 tablet by ity o f 100 mg 00:00: mouth [place] tablet 00 daily. Medical Branch metformin 2016-03 Yes [id number] 750mg Take 1 Univers ER 750 mg 0-23 tablet by ity o f 24 hr 00:00: mouth 2 [place] tablet 00 (two) Medical times Branch daily with meals. insulin 2016-03 Yes [id number] 35U inject Uni vers glargine 0-23 35-45 ity of (TOUJEO 00:00: Units [place] SOLOSTAR) 00 under the Medic al 300 unit/mL skin every Br anch (1.5 mL) morning. InPn sitaGLIPtin 2016-03 Yes [id number] 100mg Take 1 Univers (JANUVIA) 0-23 tablet by ity o f 100 mg 00:00: mouth [place] tablet 00 daily. Medical Branch metformin 2016-03 Yes [id number] 750mg Take 1 Univers ER 750 mg 0-23 tablet by ity o f 24 hr 00:00: mouth 2 [place] tablet 00 (two) Medical times Branch daily with meals. insulin 2016-03 Yes [id number] 35U inject Uni vers glargine 0-23 35-45 ity of (TOUJEO 00:00: Units [place] SOLOSTAR) 00 under the Medic al 300 unit/mL skin every Br anch (1.5 mL) morning. InPn sitaGLIPtin 2016-03 Yes [id number] 100mg Take 1 Univers (JANUVIA) 0-23 tablet by ity o f 100 mg 00:00: mouth [place] tablet 00 daily. Medical Branch metformin 2016-03 Yes [id number] 750mg Take 1 Univers ER 750 mg 0-23 tablet by ity o f 24 hr 00:00: mouth 2 [place] tablet 00 (two) Medical times Branch daily with meals. insulin 2016- Yes [id number] 35U inject Uni vers glargine 0-23 35-45 ity of (TOUJEO 00:00: Units [place] SOLOSTAR) 00 under the Medic al 300 unit/mL skin every Br anch (1.5 mL) morning. InPn sitaGLIPtin 2016-03 Yes [id number] 100mg Take 1 Univers (JANUVIA) 0-23 tablet by ity o f 100 mg 00:00: mouth [place] tablet 00 daily. Medical Branch metformin 2016-03 Yes [id number] 750mg Take 1 Univers ER 750 mg 0-23 tablet by ity o f 24 hr 00:00: mouth 2 [place] tablet 00 (two) Medical times Branch daily with meals. insulin 2016-03 Yes [id number] 35U inject Uni vers glargine 0-23 35-45 ity of (TOUJEO 00:00: Units [place] SOLOSTAR) 00 under the Medic al 300 unit/mL skin every Br anch (1.5 mL) morning. InPn atorvastati 2016-03 Yes [id number] 40mg Take 1 Univers n 40 mg 0-11 tablet by ity of tablet 00:00: mouth at [place] 00 bedtime. [facility] Branch blood sugar 2016-03 Yes [id number] Use TID, Univers diagnostic 0-11 DX E11.9 ity o f strip 00:00: ([facility] approval) requesting True Track Strips atorvastati 2016-03 Yes [id number] 40mg Take 1 Univers n 40 mg 0-11 tablet by ity of tablet 00:00: mouth at [place] 00 bedtime. [facility] Branch blood sugar 2016-03 Yes [id number] Use TID, Univers diagnostic 0-11 DX E11.9 ity o f strip 00:00: ([facility] approval) requesting True Track Strips atorvastati 2016-03 Yes [id number] 40mg Take 1 Univers n 40 mg 0-11 tablet by ity of tablet 00:00: mouth at [place] 00 bedtime. [facility] blood sugar 2016-03 Yes [id number] Use TID, Univers diagnostic 0-11 DX E11.9 ity o f strip 00:00: ([facility] approval) requesting True Track Strips atorvastati 2016-03 Yes [id number] 40mg Take 1 Univers n 40 mg 0-11 tablet by ity of tablet 00:00: mouth at [place] 00 bedtime. [facility] blood sugar 2016-03 Yes [id number] Use TID, Univers diagnostic 0-11 DX E11.9 ity o f strip 00:00: ([facility] approval) requesting True Track Strips atorvastati 2016-03 Yes [id number] 40mg Take 1 Univers n 40 mg 0-11 tablet by ity of tablet 00:00: mouth at [place] 00 bedtime. [facility] blood sugar 2016-03 Yes [id number] Use TID, Univers diagnostic 0-11 DX E11.9 ity o f strip 00:00: ([facility] approval) requesting True Track Strips atorvastati 2016-03 Yes [id number] 40mg Take 1 Univers n 40 mg 0-11 tablet by ity of tablet 00:00: mouth at [place] 00 bedtime. [facility] blood sugar 2016-03 Yes [id number] Use TID, Univers diagnostic 0-11 DX E11.9 ity o f strip 00:00: ([facility] approval) requesting True Track Strips atorvastati 2016-03 Yes [id number] 40mg Take 1 Univers n 40 mg 0-11 tablet by ity of tablet 00:00: mouth at [place] 00 bedtime. [facility] blood sugar 2016-03 Yes [id number] Use TID, Univers diagnostic 0-11 DX E11.9 ity o f strip 00:00: ([facility] approval) requesting True Track Strips atorvastati 2016-03 Yes [id number] 40mg Take 1 Univers n 40 mg 0-11 tablet by ity of tablet 00:00: mouth at [place] bedtime. [facility] blood sugar 2016-03 Yes [id number] Use TID, Univers diagnostic 0-11 DX E11.9 ity o f strip 00:00: ([facility] approval) requesting True Track Strips atorvastati 2016-03 Yes [id number] 40mg Take 1 Univers n 40 mg 0-11 tablet by ity of tablet 00:00: mouth at [place] 00 bedtime. [facility] blood sugar 2016-03 Yes [id number] Use TID, Univers diagnostic 0-11 DX E11.9 ity o f strip 00:00: ([facility] approval) requesting True Track Strips atorvastati 2016-03 Yes [id number] 40mg Take 1 Univers n 40 mg 0-11 tablet by ity of tablet 00:00: mouth at [place] 00 bedtime. [facility] blood sugar 2016-03 Yes [id number] Use TID, Univers diagnostic 0-11 DX E11.9 ity o f strip 00:00: ([facility] approval) requesting True Track Strips atorvastati 2016-03 Yes [id number] 40mg Take 1 Univers n 40 mg 0-11 tablet by ity of tablet 00:00: mouth at [place] 00 bedtime. [facility] blood sugar 2016-03 Yes [id number] Use TID, Univers diagnostic 0-11 DX E11.9 ity o f strip 00:00: ([facility] approval) requesting True Track Strips atorvastati 2016-03 Yes [id number] 40mg Take 1 Univers n 40 mg 0-11 tablet by ity of tablet 00:00: mouth at [place] 00 bedtime. [facility] blood sugar 2016-03 Yes [id number] Use TID, Univers diagnostic 0-11 DX E11.9 ity o f strip 00:00: ([facility] approval) requesting True Track Strips atorvastati 2016-03 Yes [id number] 40mg Take 1 Univers n 40 mg 0-11 tablet by ity of tablet 00:00: mouth at [place] bedtime. [facility] blood sugar 2016-03 Yes [id number] Use TID, Univers diagnostic 0-11 DX E11.9 ity o f strip 00:00: ([facility] upon [facility] approval) requesting True Track Strips atorvastati 2016-03 Yes [id number] 40mg Take 1 Univers n 40 mg 0-11 tablet by ity of tablet 00:00: mouth at [place] 00 bedtime. [facility] blood sugar 2016-03 Yes [id number] Use TID, Univers diagnostic 0-11 DX E11.9 ity o f strip 00:00: ([facility] approval) requesting True Track Strips insulin 2016-0 Yes [id number] Use with Un pricila syringe-nee 5-04 insulin 3 ity of dle U-100 1 00:00: times [place] ml (INSULIN 00 daily Medical SYRINGE) 1 Branch mL 29 x 1/2" Syrg insulin 2015- Yes [id number] Use with Un pricila syringe-nee 5-04 insulin 3 ity of dle U-100 1 00:00: times [place] ml (INSULIN 00 daily Medical SYRINGE) 1 Branch mL 29 x 1/2" Syrg insulin 2015- Yes [id number] Use with Un pricila syringe-nee 5-04 insulin 3 ity of dle U-100 1 00:00: times [place] ml (INSULIN 00 daily Medical SYRINGE) 1 Branch mL 29 x 1/2" Syrg insulin 2015- Yes [id number] Use with Un pricila syringe-nee 5-04 insulin 3 ity of dle U-100 1 00:00: times [place] ml (INSULIN 00 daily Medical SYRINGE) 1 Branch mL 29 x 1/2" Syrg insulin Yes [id number] Use with Un pricila syringe-nee 5-04 insulin 3 ity of dle U-100 1 00:00: times [place] ml (INSULIN 00 daily Medical SYRINGE) 1 Branch mL 29 x 1/2" Syrg insulin Yes [id number] Use with Un pricila syringe-nee 5-04 insulin 3 ity of dle U-100 1 00:00: times [place] ml (INSULIN 00 daily Medical SYRINGE) 1 Branch mL 29 x 1/2" Syrg insulin Yes [id number] Use with Un pricila syringe-nee 5-04 insulin 3 ity of dle U-100 1 00:00: times [place] ml (INSULIN 00 daily Medical SYRINGE) 1 Branch mL 29 x 1/2" Syrg insulin Yes [id number] Use with Un pricila syringe-nee 5-04 insulin 3 ity of dle U-100 1 00:00: times [place] ml (INSULIN 00 daily Medical SYRINGE) 1 Branch mL 29 x 1/2" Syrg insulin 2015- Yes [id number] Use with Un pricila syringe-nee 5-04 insulin 3 ity of dle U-100 1 00:00: times [place] ml (INSULIN 00 daily Medical SYRINGE) 1 Branch mL 29 x 1/2" Syrg insulin Yes [id number] Use with Un pricila syringe-nee 5-04 insulin 3 ity of dle U-100 1 00:00: times [place] ml (INSULIN 00 daily Medical SYRINGE) 1 Branch mL 29 x 1/2" Syrg insulin 2015- Yes [id number] Use with Un pricila syringe-nee 5-04 insulin 3 ity of dle U-100 1 00:00: times [place] ml (INSULIN 00 daily Medical SYRINGE) 1 Branch mL 29 x 1/2" Syrg insulin 2015- Yes [id number] Use with Un pricila syringe-nee 5-04 insulin 3 ity of dle U-100 1 00:00: times [place] ml (INSULIN 00 daily Medical SYRINGE) 1 Branch mL 29 x 1/2" Syrg insulin 2016-0 Yes [id number] Use with Un pricila syringe-nee 5-04 insulin 3 ity of dle U-100 1 00:00: times [place] ml (INSULIN 00 daily Medical SYRINGE) 1 Branch mL 29 x 1/2" Syrg insulin 2016-0 Yes [id number] Use with Un pricila syringe-nee 5-04 insulin 3 ity of dle U-100 1 00:00: times [place] ml (INSULIN 00 daily Medical SYRINGE) 1 Branch mL 29 x 1/2" Syrg Insulin 2016-0 Yes Use as [facility] [place], 3-25 directed ity of Disposable, 00:00: [place] (SURE-FINE 00 Medical PEN Branch NEEDLES) 31 gauge x 3/16" Ndle Insulin 2016-0 Yes Use as [facility] [place], 3-25 directed ity of Disposable, 00:00: [place] (SURE-FINE 00 Medical PEN Branch NEEDLES) 31 gauge x 3/16" Ndle Insulin 2016-0 Yes Use as [facility] [place], 3-25 directed ity of Disposable, 00:00: [place] (SURE-FINE 00 Medical PEN Branch NEEDLES) 31 gauge x 3/16" Ndle Insulin 2016-0 Yes Use as [facility] [place], 3-25 directed ity of Disposable, 00:00: [place] (SURE-FINE 00 Medical PEN Branch NEEDLES) 31 gauge x 3/16" Ndle Insulin 2016-0 Yes Use as [facility] [place], 3-25 directed ity of Disposable, 00:00: [place] (SURE-FINE 00 Medical PEN Branch NEEDLES) 31 gauge x 3/16" Ndle Insulin 2016-0 Yes Use as [facility] [place], 3-25 directed ity of Disposable, 00:00: [place] (SURE-FINE 00 Medical PEN Branch NEEDLES) 31 gauge x 3/16" Ndle Insulin 2016-0 Yes Use as [facility] [place], 3-25 directed ity of Disposable, 00:00: [place] (SURE-FINE 00 Medical PEN Branch NEEDLES) 31 gauge x 3/16" Ndle Insulin 2016-0 Yes Use as [facility] [place], 3-25 directed ity of Disposable, 00:00: [place] (SURE-FINE 00 Medical PEN Branch NEEDLES) 31 gauge x 3/16" Ndle Insulin 2016-0 Yes Use as [facility] [place], 3-25 directed ity of Disposable, 00:00: [place] (SURE-FINE 00 Medical PEN Branch NEEDLES) 31 gauge x 3/16" Ndle Insulin 2016-0 Yes Use as [facility] [place], 3-25 directed ity of Disposable, 00:00: [place] (SURE-FINE 00 Medical PEN Branch NEEDLES) 31 gauge x 3/16" Ndle Insulin 2016-0 Yes Use as [facility] [place], 3-25 directed ity of Disposable, 00:00: [place] (SURE-FINE 00 Medical PEN Branch NEEDLES) 31 gauge x 3/16" Ndle Insulin 2016-0 Yes Use as [facility] [place], 3-25 directed ity of Disposable, 00:00: [place] (SURE-FINE 00 Medical PEN Branch NEEDLES) 31 gauge x 3/16" Ndle Insulin 2016-0 Yes Use as [facility] [place], 3-25 directed ity of Disposable, 00:00: [place] (SURE-FINE 00 Medical PEN Branch NEEDLES) 31 gauge x 3/16" Ndle Insulin 2016-0 Yes Use as [facility] [place], 3-25 directed ity of Disposable, 00:00: [place] (SURE-FINE 00 Medical PEN Branch NEEDLES) 31 gauge x 3/16" Ndle Immunizations Ordered Immunization Filled Immunization Date Status Commen ts Source Name Name PFIZER COVID-19 MRNA 2020-08-13 Completed Meth odist VACCINATION 00:00:00 [facility] PFIZER COVID-19 MRNA 2020-08-13 Completed Meth odist VACCINATION 00:00:00 [facility] PFIZER COVID-19 MRNA 2020-07-23 Completed Meth odist VACCINATION 00:00:00 [facility] PFIZER COVID-19 MRNA 2020-07-23 Completed Meth odist VACCINATION 00:00:00 Hospital Vital Signs Vital Name Observation Time Observation Value Comments Source Systolic blood 2020-03-17 21:27:00 137 mm[Hg] Univer sity of pressure [facility] Diastolic blood 2020-03-17 21:27:00 94 mm[Hg] Unive rsity of pressure [facility] Heart rate 2020-03-17 21:27:00 105 /min [facility] Body temperature 2020-03-17 21:04:00 36.83 Dorie [facility] Respiratory rate 2020-03-17 21:04:00 16 /min [facility] [place] [facility] Body height 2020-03-17 21:04:00 160 cm [facility] Body weight 2020-03-17 21:04:00 65.772 kg [facility] BMI 2020-03-17 21:04:00 25.69 kg/m2 [facility] Procedures Procedure Date / Time Performing Clinician Source Performed REFERRAL- REQUEST/RESPONSE 2021-08-05 05:01:00 Doctor Dion , [facility] [place] [facility] GC & CHLAMYDIA AMPLIFIED 2020-03-17 21:16:00 Adum, Marlena Jo [facility] HIGH RISK HPV-THIN PREP 2020-03-17 21:16:00 Adum, Marlena Jo [facility] [place] [facility] TRICHOMONAS AMPLIFIED 2020-03-17 21:16:00 Adum, Marlena Jo [facility] PAP SMEAR-LIQUID BASED-CP 2020-03-17 21:16:00 Adum, [facility]lena [facility] 2020-03-17 20:11:55 Doctor Unassigned, [facility] POLICY [place] [facility] NO SHOW OR MISSED 2020-03-17 20:11:05 Doctor Unasszeeshan, [facility] APPOINTMENT POLICY [place] [facility] h ACKNOWLEDGEMENT Plan of Care Planned Activity Planned Date Details Comments Source Future Scheduled 2021-11-22 HEPATITIS B VACCINES Met [facility] Test 13:33:36 (1 of 3 - 3-dose series) [code = HEPATITIS B VACCINES (1 of 3 - 3-dose series)] Future Scheduled 2021-11-[address] [facility] Test 13:33:36 malignant neoplasm of cervix (procedure) [code = 712029866] Future Scheduled 2021-11-[address] [facility] Test 13:33:36 SCREENING [code = BREAST CANCER SCREENING] Future Scheduled 2021-11-[address] [facility] Test 13:33:36 [code = COLONOSCOPY SCREENING] Future Scheduled 2021-11-22 COVID-19 VACCINE (3 - [facility] Test 13:33:36 Booster for Pfizer series) [code = COVID-19 VACCINE (3 - Booster for Pfizer series)] Future Scheduled 2021-11-22 SHINGLES VACCINES (1 Met [facility] Test 13:33:36 of 2) [code = SHINGLES VACCINES (1 of 2)] Future Scheduled 2021-11-[address] [facility] Test 13:33:36 SCREENING [code = BREAST CANCER SCREENING] Future Scheduled 2021-11-[address] [facility] Test 13:33:36 [code = COLONOSCOPY SCREENING] Future Scheduled 2021-11-22 COVID-19 VACCINE (3 - Me [facility] Test 13:33:36 Booster for Pfizer series) [code = COVID-19 VACCINE (3 - Booster for Pfizer series)] Future Scheduled 2021-11-22 SHINGLES VACCINES (1 Met [facility] Test 13:33:36 of 2) [code = SHINGLES VACCINES (1 of 2)] Future Scheduled 2021-11-22 INFLUENZA VACCINE Method [facility] Test 13:33:36 [code = INFLUENZA VACCINE] Future Scheduled 2021-11-22 INFLUENZA VACCINE Method [facility] Test 13:33:36 [code = INFLUENZA VACCINE] Future Scheduled 2021-11-22 HEPATITIS B VACCINES Met [facility] Test 13:33:36 (1 of 3 - 3-dose series) [code = HEPATITIS B VACCINES (1 of 3 - 3-dose series)] Future Scheduled 2021-11-[address] [facility] Test 13:33:36 malignant neoplasm of cervix (procedure) [code = 648747771] Encounters Start End Encounter Admission Attending Care Care Encounter Source Date/Time Date/Time Type Type Clinicians Facility Department ID 2021-12-21 2021-12-[address] [facility] [id number] Jose 11:27:11 11:27:11 1018 F Vickey 2021-08-05 2021-08-05 Orders Doctor CHARLIE [id number] Univers 00:00:00 00:00:00 Only Unassigned, SHARLA [id number] ity of [place] [facility] [id number] Rich as [phone] Medi varsha 009 Branch 2021-03-31 2021-03-31 Ambulatory nullFlavo [facility] [id number] Memoria 19:15:00 19:15:00 Pre-Reg r Primary 00 l Care Michaelcecelia Brian nn 2021-03-31 2021-03-31 Ambulatory nullFlavo [facility] [id number] Memoria 19:15:00 19:15:00 Pre-Reg r Primary 00 l Care Michael Brian nikhil 2021-03-31 2021-03-31 Outpatient MHIE MHIE [id number] Memoria 13:15:00 13:15:00 00 l Yunior 2021-03-31 2021-03-31 Outpatient PRISCILA Headley MG [id number] 13:15:00 13:15:00 Loida C 00 2020-08-13 2020-08-13 Outpatient SEPTIMUS, [facility] [id number] Council 00:00:00 00:00:00 HENRI [address] 2020-07-23 2020-07-23 Outpatient SUBHA, [facility] [id number] Council 00:00:00 00:00:00 JUDY [address] 2020-07-23 2020-07-23 Outpatient SUBHA, [facility] [id number] Council 00:00:00 00:00:00 JUDY [address] 2020-07-23 2020-07-23 Outpatient [facility] [id number] Council 00:00:00 00:00:[address] 2020-07-23 2020-07-23 Outpatient SUBHA, [facility] [id number] Council 00:00:00 00:00:00 JUDY [address] 2020-07-23 2020-07-23 Outpatient SUBHA, [facility] [id number] Council 00:00:00 00:00:00 JUDY [address] 2020-07-23 2020-07-23 Outpatient SUBHA, [facility] [id number] Council 00:00:00 00:00:00 JUDY [address] 2020-07-23 2020-07-23 Outpatient SUBHA, [facility] [id number] Council 00:00:00 00:00:00 JUDY [address] 2020-05-21 2020-05-21 Patient Dionisio [facility] [id number] [facility] 00:00:00 00:00:00 Outreach Maximo PRIMARY [id number] i ty of [facility] [id number] Jerrica JEAN [phone] N[place] dical [address] Branch 2020-04-15 2020-04-15 Outpatient R ALBANIA, [facility] [id number] Univers 10:30:00 10:30:00 ORTIZ olson [facility] 2020-04-03 2020-04-03 Outpatient R CHELSEY, [facility] [id number] Univers 10:00:00 10:00:00 MARLENA olson [facility] 2020-04-02 2020-04-02 Outpatient R ADJOB, [facility] [id number] Univers 00:00:00 00:00:00 MARLENA olson [facility] 2020-03-27 2020-03-27 [facility] [id number] Univers 00:00:00 00:00:00 Marlena Holder [id number] ity [id number] [phone] [place]ical [facility] [address] [facility] 2020-03-19 2020-03-19 [facility] [id number] Univers 00:00:00 00:00:00 Management Marlena Holder [id number] [id number] [phone] [place]ical [facility] [address] [facility] 2020-03-18 2020-03-18 [employer] 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 2, Adc Lab [facility] [id number] Univers 10:17:57 10:32:57 Visit Michelle Gutiérrez [id number] ity of [id number] [phone] [place] dical [facility] [address] [facility] 2020-03-18 2020-03-18 Outpatient Omer GUTIÉRREZ, [facility] [id number] Univers 10:00:00 10:00:00 MICHELLE olson [facility] 2020-03-17 2020-03-17 Office [facility] [id number] Univers 14:10:59 16:09:53 Visit Marlena Holder [id number] it[id number] [phone] [place] dical nal [address] [facility] 2020-03-17 2020-03-17 Outpatient R AD, [facility] [id number] Univers 14:30:00 14:30:00 MARLENA [facility] 2020-03-17 2020-03-17 Telephone Ad, [facility] [id number] Univers 00:00:00 00:00:00 Marlena Sandro Holder [id number] ity [id number] [phone] [place] dical nal [address] [facility] 2020-03-17 2020-03-17 Orders Doctor CHARLIE [id number] [id number] Univers 00:00:00 00:00:00 Only Unassigned, SHARLA [id number] ity of [place] [facility] [id number] Rich as [id number] [address] 2020-01-17 2020-01-17 Outpatient R AD, [facility] [id number] Univers 14:00:00 14:00:00 [facility] 2019-12-19 2019-12-19 [facility] [id number] Univers 15:30:00 15:30:00 MARLENA [facility] 2019-12-18 2019-12-18 Outpatient R AD, [facility] [id number] Univers 15:30:00 15:30:00 [facility] 2019-12-18 2019-12-18 Outpatient R ADUM, [facility] [id number] Univers 15:30:00 15:30:00 [facility] 2019-09-25 2019-09-25 Laboratory Lab, Adc Fam Pob I [facility] 1.2. [id number] Univers 17:20:00 17:40:00 Only Anene, [facility] [id number] ity of [place] [id number] Rich as Professio [phone] Nc dical nal [address] 2019-09-25 2019-09-25 Outpatient R MARICRUZ, [facility] [id number] Univers 17:20:00 17:20:00 GRACIELA olson of [facility] Results Test Description Test Time Test Comments Results Result Comments Source GLYCATED HEMOGLOBIN 2021-08-08 23:06:13 Test Item Value Reference Range Interpretation Comme nts GLYCATED HEMOGLOBIN (test 16.0 % See_Comment H IN TERPRETIVE INFORMATION: code = 25927) Hemoglobin A1c HbA1c values of 5.7-6.4 percent indicate an increased risk for developing diabetes mellit us. HbA1c values greater than or equal to 6.5 percent are jesus alberto gnostic of diabetes [facility] us. For diagnosis of diabetes in individuals without unequiv ocal hyperglycemia, results should be confirmed by re peat testing. [Automated mess age] The system which generated this result transmitted ref erence range: <=5.6. The refe rence range was not used to int erpret this result as normal/abnor mal. AVERAGE BLOOD GLUCOSE (test 412 mg/dL TESTING PERFORMED AT ASSOCIATED code = 58942) [facility] [address] [place] [address] 8 [place]. [id number] CLIA NO. [id number] UNLESS OTHERWISE INDIC ATED, ALL TESTING PERFORMED [facility], [place] [address] 4 COAT PADDER: MAHSA WILLIAM M.D. CLIA NUMBER [id number] CAP ACCREDITATION N O. [id number] HEMOGLOBIN [id number] 10:53:26 Test Item Value Reference Range Interpretation Comments HEMOGLOBIN A1c TEST NOT 4.2-5.6 Hemoglobin A1 c result (test code = PERFORMED % cannot be deter mined 51966) by immunoassay method(Mann/Hi tachi A1C Dx Gen.3 as say). Testing to be repeated by highperformance liquid chromato graphy (HPLC) at no additional ann-marie andreported und er test code 4803. Final report to chiquis gaviria LIPID [id number] 08:08:13 Test Item Value Reference Range Interpretation Comments CHOLESTEROL (test 218 MG/DL <200 H code = 2210) TRIGLYCERIDES (test 307 MG/DL <150 H code = 2232) HDL CHOLESTEROL (test 42 MG/DL >39 code = 2220) CALC LDL CHOL (test 132 MG/DL <100 H NOTE: C ALCULATED LDL code = 2237) IS BASED ON ROCHELLE-NINO METHOD WHICHINCLUDES ADJUSTABLE TRIGLYCERIDE:VL DL CHOLESTEROL RAT IO.THIS FACTOR VARIES B Y MEASURED TRIGLY CERIDE AND NON-HDLCHOL ESTEROL CONCENTRATIONS WITH INCREASED CALCU LATED LDL SEENIN HIGH ER TRIGLYCERIDE OR LOWER NON-HDL SPECIME NS. FOR MOREINFORMATION , SEE CLIENT ANNOUNCE MENT AT [email or web address] RATIO LDL/HDL 3.14 RATIO <3.22 (test code = 2238) COMPREHENSIVE METABOLIC [id number] 08:08:13 Test Item Value Reference Range Interpretation Comments GLUCOSE (test code = 496 MG/DL 70-99 H 2216) BUN (test code = 9 MG/DL 6-20 2207) CREATININE (test 0.42 MG/DL 0.60-1.30 L code = 2214) eGFR (2020 CKD-EPI) 119 >60 (test code = 01502) ML/MIN/1.73 CALC BUN/CREAT (test 21 RATIO 6-28 code = 2235) SODIUM (test code = 135 MEQ/L 209-328 6988) POTASSIUM (test code 4.8 MEQ/L 3.5-5.4 = 2227) CHLORIDE (test code 97 MEQ/L 95-107 = 2214) CARBON DIOXIDE (test 24 MEQ/L 19-31 code = 2206) CALCIUM (test code = 9.8 MG/DL 8.5-10.5 2208) PROTEIN, TOTAL (test 8.0 G/DL 6.1-8.3 code = 2229) ALBUMIN (test code = 3.8 G/DL 3.5-5.2 2200) CALC GLOBULIN (test 4.2 G/DL 1.9-3.7 H code = 2240) CALC A/G RATIO (test 0.9 RATIO 1.0-2.6 L code = 2234) BILIRUBIN, TOTAL <0.2 MG/DL See_Comment [Automated message] (test code = 2207) The syste m which generated this result transmit swati reference range : <=1.2. The refe rence range was not u sed to interpret th is result as normal/abnormal . ALKALINE PHOSPHATASE 180 U/L 40-128 H (test code = 2204) AST (test code = 16 U/L 40 2217) ALT (test code = 19 U/L 5-40 2218) ALBUMIN/CREATININE RATIO, URINE, [id number] 06:58:00 Test Item Value Reference Range Interpretation Comments CREATININE, URINE, 24.7 MG/DL NOT ESTAB RANDOM (test code = 2072) ALBUMIN, URINE, 1.1 MG/DL NOT ESTAB RANDOM (test code = 16180) CALC ALBUMIN/CREAT, 45 MG/G <30 H Note: RND (test code = Albumin/Cre atinine 03492) ratio reference interval reflec ts ADA and NKF guideli irvin. HIGH RISK HPV-THIN [id number] 04:39:00 Test Item Value Reference Range Interpretation Comments High Risk HPV (test Negative Negative code = 9209142645) ELI (test code = ELI) A positive [...] data. Lab Interpretation Normal (test code = 73898-7) [facility] [id number] 04:39:00 Test Item Value Reference Range Interpretation Comments High Risk HPV (test Negative Negative code = 1817915377) ELI (test code = ELI) A positive [...] data. Lab Interpretation Normal (test code = 22080-9) [facility]YDIA AMPLIFIED [id number] 18:39:00 Test Item Value Reference Range Interpretation Comments C. trachomatis Nucleic Negative Negative Acid (test code = 06840-3) N. gonorrhoeae Nucleic Negative Negative Acid (test code = 72615-7) ELI (test code = ELI) Reliable results [...] clinician. Lab Interpretation Normal (test code = 25446-9) [facility] AMPLIFIED [id number] 18:39:00 Test Item Value Reference Range Interpretation Comments C. trachomatis Nucleic Negative Negative Acid (test code = 33729-2) N. gonorrhoeae Nucleic Negative Negative Acid (test code = 29837-9) ELI (test code = ELI) Reliable results [...] clinician. Lab Interpretation Normal (test code = 28761-2) [facility]PLIFIED [id number] 18:29:00 Test Item Value Reference Range Interpretation Comments Trichomonas Nucleic Negative Negative Acid (test code = 86729-2) ELI (test code = ELI) Reliable results [...] clinician. Lab Interpretation Normal (test code = 66414-5) [facility] [id number] 18:29:00 Test Item Value Reference Range Interpretation Comments Trichomonas Nucleic Negative Negative Acid (test code = 42899-1) ELI (test code = ELI) Reliable results [...] clinician. Lab Interpretation Normal (test code = 52338-9) [facility]
[2021-12-21] MEDS ORDERED: INSULIN -REGULAR HUMAN 50 UNIT/0.5 ML ML ONE (13:51)
[2021-12-21] MEDS ORDERED: NA CHLORIDE 0.9% 2,000 ML ONE (13:51)
[2021-12-21 14:16] LABS: Absolute Lymphocytes (CBC) 2.1 K/uL (0.7-4.9); Hematocrit 37.6 % (36.0-45.0); Lymphocytes % 44.3 % (15.3-44.8); MCV 89.8 fL (80-100); MPV 7.4 fL (7.6-11.3); RBC Red Blood Cell Count 4.19 M/uL (3.86-4.86)
[2021-12-21 15:08] LABS: Potassium 3.4 mmol/L (3.5-5.1)
[2021-12-21 16:49] LABS: Urine Blood Trace-intact (Negative); Urine Glucose 2+ (Negative); Urine Protein Negative (Negative); Urine Specific Gravity 1.015 (1.005-1.030); Urine pH 5.5 (5.0-7.0)
--- NOTE | 2021-12-21 18:31 | EDPHYS ---
Physician Documentation [facility] Name: Starla Rojas Age: 51 yrs Sex: Female : 1970 Arrival Date: 12/21/2021 Time: 13:10 Bed 17 Private MD: AKILA Physician Domo Shepherd HPI: 12/21 13:17 This 51 yrs old Black Female presents to ER via Ambulatory with complaints of High [facility] Blood Sugar. 13:17 Onset: The symptoms/episode began/occurred gradually, 3 month(s) ago. This is a jmm 51-year-old female with history of insulin-dependent diabetes mellitus, hypertension the presents emerged part with elevated blood glucose level. Patient took home insulin but states that she has not taken her insulin in around 3 months due to work conditions. Patient denies any vomiting or shortness of breath.. 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 - Social history:: Smoking status: Patient denies any tobacco usage or history of. ROS: 13:17 Constitutional: Negative for fever, chills, and weight loss, Cardiovascular: Negative jmm for chest pain, palpitations, and edema, Respiratory: Negative for shortness of breath, cough, wheezing, and pleuritic chest pain, Abdomen/GI: Negative for abdominal pain, nausea, vomiting, diarrhea, and constipation. 13:17 All other systems are negative. Exam: 13:17 Constitutional: This is a well developed, well nourished patient who is awake, alert, jmm and in no acute distress. Head/Face: atraumatic. Eyes: EOMI, no conjunctival erythema appreciated ENT: Moist Mucus Membranes Neck: Trachea midline, Supple Chest/axilla: Normal chest wall appearance and motion. Cardiovascular: Regular rate and rhythm. No edema appreciated Respiratory: Normal respirations, no respiratory distress appreciated Abdomen/GI: Non distended Back: Normal ROM Skin: General appearance color normal MS/ Extremity: Moves all extremities, no obvious deformities appreciated, no edema noted to the lower extremities Neuro: Awake and alert Psych: Behavior is normal, Mood is normal, Patient is cooperative and pleasant Vital Signs: 13:11 BP 150 / 98; Pulse 87; Resp 16; Temp 97.2; Pulse Ox 100% ; Weight 63.96 kg; Height 5 ll1 ft. 3 in. (160.02 cm); Pain 8/10; 13:30 BP 127 / 84; Pulse 88; Resp 16; Pulse Ox 100% on R/A; kr3 14:30 BP 151 / 93; Pulse 83; Resp 17; Pulse Ox 100% on R/A; kr3 15:30 BP 118 / 75; Pulse 80; Resp 16; Pulse Ox 100% on R/A; kr3 16:55 BP 152 / 91; Pulse 77; Resp 16; Pulse Ox 100% on R/A; kr3 17:43 BP 154 / 105; Pulse 79; Resp 17; Pulse Ox 100% on R/A; kr3 18:46 BP 154 / 98; Pulse 74; Resp 17; Pulse Ox 100% on R/A; kr3 13:11 Body Mass Index 24.98 (63.96 kg, 160.02 cm) ll1 MDM: 13:17 Patient medically screened. mitch 18:30 Data reviewed: vital signs, nurses notes. Counseling: I had a detailed discussion with gibson the patient and/or guardian regarding: the historical points, exam findings, and any diagnostic results supporting the discharge/admit diagnosis, the need for outpatient follow up, to return to the emergency department if symptoms worsen or persist or if there are any questions or concerns that arise at home. 12/21 13:33 Order name: Glucose, Ancillary Testing; Complete Time: 13:40 [facility] 12/21 13:40 Order name: CBC with Diff; Complete Time: 14:19 [facility] 12/21 13:40 Order name: BMP; Complete Time: 15:09 [facility] 12/21 16:49 Order name: Urine Dipstick-Ancillary; Complete Time: 16:49 [facility] 12/21 18:40 Order name: Glucose, Ancillary Testing; Complete Time: 20:06 [facility] 12/21 13:40 Order name: Saline Lock; Complete Time: 14:06 [facility] 12/21 13:41 Order name: Urine Dipstick-Ancillary (obtain specimen); Complete Time: 16:54 [facility] Administered Medications: 14:05 Drug: Insulin Regular Human 10 units {Co-Signature: mb9 (Mariah Rowell RN).} Route: kr3 IVP; Site: right antecubital; 18:44 Follow up: Response: No adverse reaction kr3 14:06 Drug: NS 0.9% 2000 ml Route: IV; Rate: 1 bolus; Site: right antecubital; kr3 18:44 Follow up: Response: No adverse reaction; IV Status: Completed infusion; IV Intake: kr3 2000ml Disposition Summary: 12/21/21 18:30 Discharge Ordered Location: Home [facility] Condition: Stable [facility] Diagnosis - Hyperglycemia, unspecified [facility] Followup: [facility] - With: Private Physician - When: 2 - 3 days - Reason: Recheck today's complaints, Continuance of care, Re-evaluation by your physician Discharge Instructions: - Discharge Summary Sheet [facility] - Hyperglycemia [facility] Forms: - Medication Reconciliation Form [facility] - Thank You Letter [facility] - Antibiotic Education [facility] - Prescription Opioid Use [facility] Signatures: Dispatcher [employer] Domo Chao MD MD cha Mickail, Joel, PA PA jmm Lewis, Lynsay, RN RN ll1 Vivian Snider RN RN kr3 Mariah Rowell RN mb9
--- NOTE | 2021-12-21 18:31 | ER ---
Nurse's Notes [facility] Name: Starla Rojas Age: 51 yrs Sex: Female : 1970 Arrival Date: 12/21/2021 Time: 13:10 Bed 17 Private MD: Diagnosis: Hyperglycemia, unspecified Presentation: 12/21 13:11 Chief complaint: Patient states: Blood sugar 577 earlier today at [facility]. They ll1 gave her Novolin R 14 units SQ at 1140. She is working 14 hour days and cannot medicate herself as prescribed for the past 3 months. Coronavirus screen: Vaccine status: Patient reports receiving the 2nd dose of the covid vaccine. Client denies travel out of the [place] in the last 14 days. At this time, the client does not indicate any symptoms associated with coronavirus-19. Ebola Screen: Patient denies travel to an Ebola-affected area in the 21 days before illness onset. Initial Sepsis Screen: Does the patient meet any 2 criteria? No. Patient's initial sepsis screen is negative. Does the patient have a suspected source of infection? No. Patient's initial sepsis screen is negative. Risk Assessment: Do you want to hurt yourself or someone else? Patient reports no desire to harm self or others. Onset of symptoms was October 18, 2021. 13:11 Method Of Arrival: Ambulatory ll1 13:11 Acuity: BRUNO 3 ll1 Triage Assessment: 13:13 General: Appears in no apparent distress. Behavior is calm, cooperative, appropriate ll1 for age. Pain: Complains of pain in back Pain currently is 8 out of 10 on a pain scale. Neuro: Reports high blood sugar. Musculoskeletal: Reports pain in back. 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 - Social history:: Smoking status: Patient denies any tobacco usage or history of. Screenin:31 Abuse screen: Denies threats or abuse. Nutritional screening: No deficits noted. kr3 Tuberculosis screening: No symptoms or risk factors identified. Fall Risk None identified. Assessment: 13:29 General: Appears in no apparent distress. comfortable, Behavior is calm, cooperative, kr3 appropriate for age. 14:30 Reassessment: No changes from previously documented assessment. Patient and/or family kr3 updated on plan of care and expected duration. Pain level reassessed. Patient is alert, oriented x 3, equal unlabored respirations, skin warm/dry/pink. 15:30 Reassessment: No changes from previously documented assessment. Patient and/or family kr3 updated on plan of care and expected duration. Pain level reassessed. 16:30 Reassessment: No changes from previously documented assessment. Patient and/or family kr3 updated on plan of care and expected duration. Pain level reassessed. Patient is alert, oriented x 3, equal unlabored respirations, skin warm/dry/pink. 17:30 Reassessment: No changes from previously documented assessment. Patient and/or family kr3 updated on plan of care and expected duration. Pain level reassessed. Vital Signs: 13:11 BP 150 / 98; Pulse 87; Resp 16; Temp 97.2; Pulse Ox 100% ; Weight 63.96 kg; Height 5 ll1 ft. 3 in. (160.02 cm); Pain 8/10; 13:30 BP 127 / 84; Pulse 88; Resp 16; Pulse Ox 100% on R/A; kr3 14:30 BP 151 / 93; Pulse 83; Resp 17; Pulse Ox 100% on R/A; kr3 15:30 BP 118 / 75; Pulse 80; Resp 16; Pulse Ox 100% on R/A; kr3 16:55 BP 152 / 91; Pulse 77; Resp 16; Pulse Ox 100% on R/A; kr3 17:43 BP 154 / 105; Pulse 79; Resp 17; Pulse Ox 100% on R/A; kr3 18:46 BP 154 / 98; Pulse 74; Resp 17; Pulse Ox 100% on R/A; kr3 13:11 Body Mass Index 24.98 (63.96 kg, 160.02 cm) 1 ED Course: 13:10 Patient arrived in ED. ll1 13:13 Triage completed. 1 13:14 Arm band placed on Patient placed in an exam room, on a stretcher. 1 13:16 Jersey Toro PA is PHCP. [facility] 13:16 Domo Shepherd MD is Attending Physician. [facility] 13:23 Vivian Snider, RN is Primary Nurse. kr3 13:32 Bed in low position. Call light in reach. Side rails up X 1. kr3 14:06 Inserted saline lock: 20 gauge in right antecubital area, using aseptic technique. kr3 Blood collected. 18:45 No provider procedures requiring assistance completed. IV discontinued, intact, kr3 bleeding controlled, No redness/swelling at site. Pressure dressing applied. Administered Medications: 14:05 Drug: Insulin Regular Human 10 units {Co-Signature: garrett (Mariah Rowell RN).} Route: kr3 IVP; Site: right antecubital; 18:44 Follow up: Response: No adverse reaction kr3 14:06 Drug: NS 0.9% 2000 ml Route: IV; Rate: 1 bolus; Site: right antecubital; kr3 18:44 Follow up: Response: No adverse reaction; IV Status: Completed infusion; IV Intake: kr3 2000ml Medication: 13:32 VIS not applicable for this client. kr3 Intake: 18:44 IV: 2000ml; Total: 2000ml. kr3 Outcome: 18:30 Discharge ordered by . [facility] 18:45 Discharged to home ambulatory. kr3 18:45 Condition: stable 18:45 Discharge instructions given to patient, Instructed on discharge instructions, follow up and referral plans. Demonstrated understanding of instructions, follow-up care. 18:46 Patient left the ED. kr3 Signatures: Jersey Toro PA PA jmm Lewis, Lynsay RN RN ll1 Vivian Snider, RN RN kr3 Mariah Rowell RN [id number]
[2021-12-21 18:51] VITALS: TEMP 97.2; O2SAT 100
[2021-12-21 18:58] VITALS: BP 154/98
== END 2021-12-21 18:46 | disposition home or self-care (01) ==
LOC: ER 12:46
DX: E11.65 Type 2 diabetes mellitus with hyperglycemia (principal); Z88.5 Allergy status to narcotic agent
CPT/HCPCS: 36415; 80048; 81003; 82947; 85025; 96361; 96374; 99284; J1815; J7030